=== PATIENT | male | born 1940 | race Caucasian/White ===

== ENCOUNTER 2019-09-16 05:43 | Outpatient (RCR) | payer MEDICARE, OTHER, SELFPAY | END 2019-09-19 00:01 | LOC: ONCRAD 05:43 | PROVIDERS: Family Provider Nurse Practitioner Family; Visit Provider Nurse Practitioner | DX: Z51.0 Encounter for antineoplastic radiation therapy (principal); Z51.11 Encounter for antineoplastic chemotherapy; C34.11 Malignant neoplasm of upper lobe, right bronchus or lung; C77.1 Secondary and unspecified malignant neoplasm of intrathoracic lymph nodes; C79.89 Secondary malignant neoplasm of other specified sites; J44.9 Chronic obstructive pulmonary disease, unspecified; E11.9 Type 2 diabetes mellitus without complications; E78.5 Hyperlipidemia, unspecified; N40.0 Benign prostatic hyperplasia without lower urinary tract symptoms; M25.472 Effusion, left ankle; M25.471 Effusion, right ankle; F10.21 Alcohol dependence, in remission; Z79.51 Long term (current) use of inhaled steroids; Z79.891 Long term (current) use of opiate analgesic; Z79.84 Long term (current) use of oral hypoglycemic drugs; Z87.891 Personal history of nicotine dependence; Z95.828 Presence of other vascular implants and grafts | CPT/HCPCS: 36415; 77386 ×4; 80053; 85025; 96367; 96413; 96417; 99214; J1100; J2469; J3490; J7030; J7050; J9045; J9267 ==

== ENCOUNTER 2019-10-15 05:34 | Outpatient (RCR) | payer MEDICARE, OTHER, SELFPAY | END 2019-10-20 00:01 | LOC: ONCMED 05:34 | PROVIDERS: Family Provider Nurse Practitioner Family; Visit Provider Internal Medicine Medical Oncology | DX: Z51.0 Encounter for antineoplastic radiation therapy (principal); C34.11 Malignant neoplasm of upper lobe, right bronchus or lung; C79.89 Secondary malignant neoplasm of other specified sites; D50.8 Other iron deficiency anemias; R19.00 Intra-abdominal and pelvic swelling, mass and lump, unspecified site; D70.1 Agranulocytosis secondary to cancer chemotherapy; T45.1X5A Adverse effect of antineoplastic and immunosuppressive drugs, initial encounter; J44.9 Chronic obstructive pulmonary disease, unspecified; E78.5 Hyperlipidemia, unspecified; K21.9 Gastro-esophageal reflux disease without esophagitis; N40.0 Benign prostatic hyperplasia without lower urinary tract symptoms; Z79.899 Other long term (current) drug therapy; Z79.52 Long term (current) use of systemic steroids ==

== ENCOUNTER 2019-10-24 15:55 | Inpatient (IN) | payer MEDICARE, OTHER, SELFPAY ==
[2019-10-24] VITALS (12 sets, daily range): BP systolic 105–128; BP diastolic 63–88; PULSE 90–110; RESP 14–22; TEMP 36.9; O2SAT 91–95; BMI 23.4
--- NOTE | 2019-10-24 16:18 | XRR_ITS ---
PROCEDURE INFORMATION: Exam: XR Chest, 1 View Exam date and time: 10/24/2019 4:56 PM Age: 79 years old Clinical indication: Shortness of breath; Additional info: Short of breath x 3 days TECHNIQUE: Imaging protocol: XR of the chest Views: 1 view. COMPARISON: CR Chest 1 [place] [id number] 09/08/2019 9:23 AM FINDINGS: Tubes, catheters and devices: There is a left subclavian PICC line with tip in the superior vena cava. Lungs: There is probable pulmonary fibrosis with superimposed mild interstitial edema, bronchitis or viral pneumonitis. Ill-defined poorly marginated airspace opacity in the right lung lateral to the hilum is unchanged in size and may reflect persistent pneumonitis or ill-defined unchanged mass. Right paratracheal mass/adenopathy is smaller with a decrease and adjacent volume loss or pneumonitis in the right upper lobe. The transverse measurement the mass today is 3.3 cm compared to 5.7 cm previously. No new airspace consolidation. Linear right basilar atelectasis versus scarring. Pleural space: Unremarkable. No pleural effusion. No pneumothorax. Heart/Mediastinum: Unremarkable. No cardiomegaly. Bones/joints: Unremarkable. XR/XR chest 1V portable [id number] IMPRESSION: 1. Ill-defined poorly marginated airspace opacity in the right lung lateral to the hilum is unchanged in size and may reflect persistent pneumonitis or ill-defined unchanged mass. 2. Improving right paratracheal mass. 3. There is probable pulmonary fibrosis with superimposed mild interstitial edema, bronchitis or viral pneumonitis.
--- NOTE | 2019-10-24 16:21 | ECG_ITS ---
Measurements Intervals [place] Rate: 91 P: 70 RI: 166 QRS: 59 QRSD: 96 T: 68 QT: 358 QTc: 442 SINUS RHYTHM Compared to ECG 09/07/2019 10:24:15 No significant changes Electronically Signed On 10-25-2019 11:15:55 [employer] by No Cardoza M.D. [email or web address]
--- NOTE | 2019-10-24 16:41 | PC.NURSE ---
RT, lab, and Frank Henderson at bedside.
[2019-10-24] MEDS: ipratropium-albuterol 3 mL Neb INHALATION (16:42)
--- NOTE | 2019-10-24 16:42 | W.ED.SOB ---
Documented by User: THIEN Lee 10/24/19 17:09 HPI - SOB/Dyspnea General: Chief Complaint: Shortness of Breath/Dyspnea Stated Complaint: Difficult Breathing, Patient comes in today for complaints of shortness of breath for last 2-3 days increasing. Patient has lung cancer and states recent treatment of bowel early last week. Patient reports some metastasis to the muscle in his abdomen. Patient appears chronically ill. Patient appears in no pain. Patient does report some mild pain in the right lower abdomen. She denies fever or chills. Time Seen by Provider: 10/24/19 17:02 Review of Systems General: Reports: 10 or more systems reviewed and unremarkable except in HPI and below Resp: Reports: shortness of breath and non-productive cough Musc: Reports: muscle weakness PFSH ED PFSH: Statuses (acute, chronic, etc) shown below reflect problem list status as previously entered and may not be historically accurate Medical History (Updated 10/24/19 @ 21:38 by Nahun Burroughs MD) BPH (benign prostatic hyperplasia) (Acute) COPD (chronic obstructive pulmonary disease) (Acute) Diabetes (Acute) Dyslipidemia (Acute) GERD (gastroesophageal reflux disease) (Acute) Normal colonoscopy (Acute) Right inguinal hernia (Acute) Squamous cell lung cancer (Acute) Surgical History (Updated 10/24/19 @ 21:35 by Nahun Burroughs MD) H/O inguinal hernia repair (Acute) History of appendectomy (Acute) Hx of tonsillectomy (Acute) S/P TURP (Acute) Family History (Updated 10/24/19 @ 21:41 by Nahun Burroughs MD) Mother Diabetes Brother Cancer Brother Cancer HODKINS LYMPHOMA Social History (Updated 10/24/19 @ 21:42 by Nahun Burroughs MD) Smoking and tobacco status: former smoker Alcohol intake: former Substance/Drug Use: never Marital status: Physical Exam Const: COMMON NORMALS: no apparent distress and oriented x3 GENERAL APPEARANCE: cooperative HENMT: COMMON NORMALS: normocephalic, external ears normal, EAC's normal, TM's normal bilaterally and external nose normal HEAD & SCALP: normal to inspection and normocephalic FACE & SINUS: normal facial exam NOSE: external nose normal GENERAL EAR: hearing grossly impaired EXTERNAL EAR: Yes external ears normal EXTERNAL AUDITORY CANAL: EAC's normal TYMPANIC MEMBRANE: TM's normal bilaterally MOUTH: oral and palatal mucosa normal THROAT: posterior oropharynx normal Eye: COMMON NORMALS: PERRL and EOMs intact bilaterally PUPIL: Yes PERRL Neck/C-Spine: COMMON NORMALS: full ROM and no lymphadenopathy Lymph: LYMPHATIC: no lymphedema noted Chest: COMMONS NORMALS: inspection of chest normal and palpation of chest normal Resp: COMMON NORMALS: normal respiratory effort AUSCULTATION: diminished lung sounds Cardio: COMMON NORMALS: regular rate and regular rhythm RATE: regular rate RHYTHM: regular rhythm GI: COMMON NORMALS: normal to inspection, nondistended, normoactive bowel sounds and non-tender : COMMON NORMALS: Yes no CVA tenderness BLADDER/KIDNEY EXAM: Yes no CVA tenderness Back/Pelvis: COMMON NORMALS: no CVA tenderness and thoracic and lumbar spine normal to inspection Extremity: COMMON NORMALS: normal to inspection GENERAL: No edema Neuro: COMMON NORMALS: oriented x3, moves all extremities and no focal motor deficits Psych: COMMON NORMALS: mental status grossly normal and cooperative Skin: COMMON NORMALS: no rashes or lesions noted GENERAL SKIN EXAM: no rashes or lesions noted Course ED course: Discussed patient with Dr. Ley who agreed to accept the patient. Awaiting labs and imaging. Vital Signs: Vital signs: Vital Signs Temperature 98.8 F 10/25/19 04:00 Pulse Rate 98 10/25/19 04:00 Respiratory Rate 18 10/25/19 04:00 Blood Pressure 126/74 10/25/19 04:00 Pulse Oximetry 92 10/25/19 04:00 MDM - SOB/Dyspnea Lab Data: Labs: Lab Results 10/24/19 10/24/19 10/24/19 Range/Units 16:36 16:38 16:38 WBC 5.1 (4.0-10.0) 10^3/ uL RBC 4.14 (4.1-5.3) 10^6/u L Hgb 11.1 L (11.7-16.6) g/dL Hct 34.6 L (42.0-52.0) % MCV 83.6 (80-94) fL MCH 26.8 L (28.0-34.0) pg MCHC 32.1 (30.0-36.0) g/dL RDW 21.2 H (12.1-15.1) % Plt Count 377 (130-400) 10^3/c mm MPV 10.5 H (7.4-10.4) fL Neut % (Auto) 73.4 % Lymph % (Auto) 8.7 % [place] % (Auto) 11.0 % Eos % (Auto) 4.3 % Baso % (Auto) 1.0 % Neut # (Auto) 3.7 (1.8-7.7) 10^3/u L Lymph # (Auto) 0.4 L (0.8-4.8) 10^3/u L [place] # (Auto) 0.6 (0.2-0.9) 10^3/u L Eos # (Auto) 0.2 (0.0-0.8) 10^3/u L Baso # (Auto) 0.1 (0.0-0.1) 10^3/u L Nucleated RBC % (a uto) 0 % Nucleated RBCs # 0.0 /100WBC PT 13.50 H (10.5-13.3) SECO NDS INR 1.00 (0.8-1.2) D-Dimer 1.96 H (0-0.59) ug/mIFE U Specimen Type Sample Site ABG pH (7.35-7.45) ABG pCO2 (35-45) mmHg ABG pO2 (80.0-100.0) mmH g ABG HCO3 (22-26) mmol/L ABG Base Excess (-2.0-2.0) mmol/ L Carlos Test Hematocrit (42-52) % Hgb O2 Saturation (95-100) % O2 Liters/Min % FiO2 % Guest Services Assistant ID Sodium (136-145) mmol/L Potassium (3.5-5.1) mmol/L Chloride (98-107) mmol/L Carbon Dioxide (22-29) mmol/L Anion Gap (5-19) BUN (8-23) mg/dL Creatinine (0.7-1.2) mg/dL Glucose (74-106) mg/dL Calcium (8.8-10.2) mg/Dl Magnesium (1.7-2.3) mg/dL Total Bilirubin (0.15-1.2) mg/dL AST (0-40) U/L ALT (0-41) U/L Alkaline Phosphata se (40-130) IU/L Troponin T Baselin e (0-15) ng/mL Troponin T 120 Min [place] (0-15) ng/mL Delta Troponin T (0-10) ABS# NT-Pro-B Natriuret Pep (0-450) pg/mL Total Protein (6.6-8.7) g/dL Albumin (3.5-5.2) g/dL Globulin (1.3-4.6) g/dL Influenza Type A A g Negative (Negative) POC Influenza B Ag Negative (Negative) 10/24/19 10/24/19 10/24/19 Range/Units 16:45 17:44 17:44 WBC (4.0-10.0) 10^3/ uL RBC (4.1-5.3) 10^6/u L Hgb (11.7-16.6) g/dL Hct (42.0-52.0) % MCV (80-94) fL MCH (28.0-34.0) pg MCHC (30.0-36.0) g/dL RDW (12.1-15.1) % Plt Count (130-400) 10^3/c mm MPV (7.4-10.4) fL Neut % (Auto) % Lymph % (Auto) % [place] % (Auto) % Eos % (Auto) % Baso % (Auto) % Neut # (Auto) (1.8-7.7) 10^3/u L Lymph # (Auto) (0.8-4.8) 10^3/u L [place] # (Auto) (0.2-0.9) 10^3/u L Eos # (Auto) (0.0-0.8) 10^3/u L Baso # (Auto) (0.0-0.1) 10^3/u L Nucleated RBC % (a uto) % Nucleated RBCs # /100WBC PT (10.5-13.3) SECO NDS INR (0.8-1.2) D-Dimer (0-0.59) ug/mIFE U Specimen Type Arterial Sample Site Radial, right ABG pH 7.53 H (7.35-7.45) ABG pCO2 34.1 L (35-45) mmHg ABG pO2 53.0 L (80.0-100.0) mmH g ABG HCO3 28.3 H (22-26) mmol/L ABG Base Excess 5.6 H (-2.0-2.0) mmol/ L Carlos Test Pos Hematocrit 37.6 L (42-52) % Hgb O2 Saturation 88.2 L (95-100) % O2 Liters/Min 2.0 % FiO2 28.0 % Guest Services Assistant ID amh Sodium 133 L (136-145) mmol/L Potassium 4.0 (3.5-5.1) mmol/L Chloride 95 L (98-107) mmol/L Carbon Dioxide 25 (22-29) mmol/L Anion Gap 17.0 (5-19) BUN 21 (8-23) mg/dL Creatinine 1.1 (0.7-1.2) mg/dL Glucose 140 H (74-106) mg/dL Calcium 10.4 H (8.8-10.2) mg/Dl Magnesium 1.7 (1.7-2.3) mg/dL Total Bilirubin 0.3 (0.15-1.2) mg/dL AST 29 (0-40) U/L ALT 17 (0-41) U/L Alkaline Phosphata se 193 H (40-130) IU/L Troponin T Baselin e 26 H (0-15) ng/mL Troponin T 120 Min [place] (0-15) ng/mL Delta Troponin T (0-10) ABS# NT-Pro-B Natriuret Pep 370 (0-450) pg/mL Total Protein 5.8 L (6.6-8.7) g/dL Albumin 3.3 L (3.5-5.2) g/dL Globulin 2.5 (1.3-4.6) g/dL Influenza Type A A g (Negative) POC Influenza B Ag (Negative) 10/24/19 Range/Units 19:53 WBC (4.0-10.0) 10^3/ uL RBC (4.1-5.3) 10^6/u L Hgb (11.7-16.6) g/dL Hct (42.0-52.0) % MCV (80-94) fL MCH (28.0-34.0) pg MCHC (30.0-36.0) g/dL RDW (12.1-15.1) % Plt Count (130-400) 10^3/c mm MPV (7.4-10.4) fL Neut % (Auto) % Lymph % (Auto) % [place] % (Auto) % Eos % (Auto) % Baso % (Auto) % Neut # (Auto) (1.8-7.7) 10^3/u L Lymph # (Auto) (0.8-4.8) 10^3/u L [place] # (Auto) (0.2-0.9) 10^3/u L Eos # (Auto) (0.0-0.8) 10^3/u L Baso # (Auto) (0.0-0.1) 10^3/u L Nucleated RBC % (a uto) % Nucleated RBCs # /100WBC PT (10.5-13.3) SECO NDS INR (0.8-1.2) D-Dimer (0-0.59) ug/mIFE U Specimen Type Sample Site ABG pH (7.35-7.45) ABG pCO2 (35-45) mmHg ABG pO2 (80.0-100.0) mmH g ABG HCO3 (22-26) mmol/L ABG Base Excess (-2.0-2.0) mmol/ L Carlos Test Hematocrit (42-52) % Hgb O2 Saturation (95-100) % O2 Liters/Min % FiO2 % Guest Services Assistant ID Sodium (136-145) mmol/L Potassium (3.5-5.1) mmol/L Chloride (98-107) mmol/L Carbon Dioxide (22-29) mmol/L Anion Gap (5-19) BUN (8-23) mg/dL Creatinine (0.7-1.2) mg/dL Glucose (74-106) mg/dL Calcium (8.8-10.2) mg/Dl Magnesium (1.7-2.3) mg/dL Total Bilirubin (0.15-1.2) mg/dL AST (0-40) U/L ALT (0-41) U/L Alkaline Phosphata se (40-130) IU/L Troponin T Baselin e (0-15) ng/mL Troponin T 120 Min [place] 24.79 H (0-15) ng/mL Delta Troponin T -1.21 L (0-10) ABS# NT-Pro-B Natriuret Pep (0-450) pg/mL Total Protein (6.6-8.7) g/dL Albumin (3.5-5.2) g/dL Globulin (1.3-4.6) g/dL Influenza Type A A g (Negative) POC Influenza B Ag (Negative) Discharge Plan Discharge Patient Disposition: Home, Self-Care Condition: Stable Discharge Date/Time: 10/25/19 01:13 Sign Out Sign Out Data: Patient Sign Out occurred on 10/24/19 at 17:16. Patient's care was discussed, and care was transferred from Kodi Henderson to Jennifer Adam. Sign Out Comment: Patient came in today for increase shortness of breath, Feels better since Oxygen placed by nursing staff. States has lung cancer. Patient denies fever. Awaiting labs and imaging Last updated by Kodi Henderson FNP at 10/24/19 17:05 Coding Level of Care Code ED Superintendent [employer] for Chg Fwd Exam Problem Focused Documented by User: Elia Munguia DO 10/25/19 05:03 HPI - SOB/Dyspnea General: Chief Complaint: Shortness of Breath/Dyspnea Stated Complaint: Difficult Breathing, Patient comes in today for complaints of shortness of breath for last 2-3 days increasing. Patient has lung cancer and states recent treatment of bowel early last week. Patient reports some metastasis to the muscle in his abdomen. Patient appears chronically ill. Patient appears in no pain. Patient does report some mild pain in the right lower abdomen. She denies fever or chills. Time Seen by Provider: 10/24/19 17:02 [facility] ED PFSH: Statuses (acute, chronic, etc) shown below reflect problem list status as previously entered and may not be historically accurate Medical History (Updated 10/24/19 @ 21:38 by Nahun Burroughs MD) BPH (benign prostatic hyperplasia) (Acute) COPD (chronic obstructive pulmonary disease) (Acute) Diabetes (Acute) Dyslipidemia (Acute) GERD (gastroesophageal reflux disease) (Acute) Normal colonoscopy (Acute) Right inguinal hernia (Acute) Squamous cell lung cancer (Acute) Surgical History (Updated 10/24/19 @ 21:35 by Nahun Burroughs MD) H/O inguinal hernia repair (Acute) History of appendectomy (Acute) Hx of tonsillectomy (Acute) S/P TURP (Acute) Family History (Updated 10/24/19 @ 21:41 by Nahun Burroughs MD) Mother Diabetes Brother Cancer Brother Cancer HODKINS LYMPHOMA Social History (Updated 10/24/19 @ 21:42 by Nahun Burroughs MD) Smoking and tobacco status: former smoker Alcohol intake: former Substance/Drug Use: never Marital status: Course Consultations: Consultation #1: Manjeet Time: 21:27 Vital Signs: Vital signs: Vital Signs Temperature 98.8 F 10/25/19 04:00 Pulse Rate 98 10/25/19 04:00 Respiratory Rate 18 10/25/19 04:00 Blood Pressure 126/74 10/25/19 04:00 Pulse Oximetry 92 10/25/19 04:00 MDM - SOB/Dyspnea MDM Narrative: Medical decision making narrative: 79-year-old gentleman with lung cancer. He presents with shortness of breath. His d-dimer was elevated. CTA reveals a small pulmonary embolus in the right lower lobe. Not likely to cause him his hypoxia, for which she is now oxygen dependent. He does have some groundglass opacities on CTA as well, likely pneumonitis from radiation although infection would not entirely be ruled out. As he is hypoxic, he will be admitted. Lab Data: Labs: Lab Results 10/24/19 10/24/19 10/24/19 Range/Units 16:36 16:38 16:38 WBC 5.1 (4.0-10.0) 10^3/ uL RBC 4.14 (4.1-5.3) 10^6/u L Hgb 11.1 L (11.7-16.6) g/dL Hct 34.6 L (42.0-52.0) % MCV 83.6 (80-94) fL MCH 26.8 L (28.0-34.0) pg MCHC 32.1 (30.0-36.0) g/dL RDW 21.2 H (12.1-15.1) % Plt Count 377 (130-400) 10^3/c mm MPV 10.5 H (7.4-10.4) fL Neut % (Auto) 73.4 % Lymph % (Auto) 8.7 % [place] % (Auto) 11.0 % Eos % (Auto) 4.3 % Baso % (Auto) 1.0 % Neut # (Auto) 3.7 (1.8-7.7) 10^3/u L Lymph # (Auto) 0.4 L (0.8-4.8) 10^3/u L [place] # (Auto) 0.6 (0.2-0.9) 10^3/u L Eos # (Auto) 0.2 (0.0-0.8) 10^3/u L Baso # (Auto) 0.1 (0.0-0.1) 10^3/u L Nucleated RBC % (a uto) 0 % Nucleated RBCs # 0.0 /100WBC PT 13.50 H (10.5-13.3) SECO NDS INR 1.00 (0.8-1.2) D-Dimer 1.96 H (0-0.59) ug/mIFE U Specimen Type Sample Site ABG pH (7.35-7.45) ABG pCO2 (35-45) mmHg ABG pO2 (80.0-100.0) mmH g ABG HCO3 (22-26) mmol/L ABG Base Excess (-2.0-2.0) mmol/ L Carlos Test Hematocrit (42-52) % Hgb O2 Saturation (95-100) % O2 Liters/Min % FiO2 % Guest Services Assistant ID Sodium (136-145) mmol/L Potassium (3.5-5.1) mmol/L Chloride (98-107) mmol/L Carbon Dioxide (22-29) mmol/L Anion Gap (5-19) BUN (8-23) mg/dL Creatinine (0.7-1.2) mg/dL Glucose (74-106) mg/dL Calcium (8.8-10.2) mg/Dl Magnesium (1.7-2.3) mg/dL Total Bilirubin (0.15-1.2) mg/dL AST (0-40) U/L ALT (0-41) U/L Alkaline Phosphata se (40-130) IU/L Troponin T Baselin e (0-15) ng/mL Troponin T 120 Min [place] (0-15) ng/mL Delta Troponin T (0-10) ABS# NT-Pro-B Natriuret Pep (0-450) pg/mL Total Protein (6.6-8.7) g/dL Albumin (3.5-5.2) g/dL Globulin (1.3-4.6) g/dL Influenza Type A A g Negative (Negative) POC Influenza B Ag Negative (Negative) 10/24/19 10/24/19 10/24/19 Range/Units 16:45 17:44 17:44 WBC (4.0-10.0) 10^3/ uL RBC (4.1-5.3) 10^6/u L Hgb (11.7-16.6) g/dL Hct (42.0-52.0) % MCV (80-94) fL MCH (28.0-34.0) pg MCHC (30.0-36.0) g/dL RDW (12.1-15.1) % Plt Count (130-400) 10^3/c mm MPV (7.4-10.4) fL Neut % (Auto) % Lymph % (Auto) % [place] % (Auto) % Eos % (Auto) % Baso % (Auto) % Neut # (Auto) (1.8-7.7) 10^3/u L Lymph # (Auto) (0.8-4.8) 10^3/u L [place] # (Auto) (0.2-0.9) 10^3/u L Eos # (Auto) (0.0-0.8) 10^3/u L Baso # (Auto) (0.0-0.1) 10^3/u L Nucleated RBC % (a uto) % Nucleated RBCs # /100WBC PT (10.5-13.3) SECO NDS INR (0.8-1.2) D-Dimer (0-0.59) ug/mIFE U Specimen Type Arterial Sample Site Radial, right ABG pH 7.53 H (7.35-7.45) ABG pCO2 34.1 L (35-45) mmHg ABG pO2 53.0 L (80.0-100.0) mmH g ABG HCO3 28.3 H (22-26) mmol/L ABG Base Excess 5.6 H (-2.0-2.0) mmol/ L Carlos Test Pos Hematocrit 37.6 L (42-52) % Hgb O2 Saturation 88.2 L (95-100) % O2 Liters/Min 2.0 % FiO2 28.0 % Guest Services Assistant ID amh Sodium 133 L (136-145) mmol/L Potassium 4.0 (3.5-5.1) mmol/L Chloride 95 L (98-107) mmol/L Carbon Dioxide 25 (22-29) mmol/L Anion Gap 17.0 (5-19) BUN 21 (8-23) mg/dL Creatinine 1.1 (0.7-1.2) mg/dL Glucose 140 H (74-106) mg/dL Calcium 10.4 H (8.8-10.2) mg/Dl Magnesium 1.7 (1.7-2.3) mg/dL Total Bilirubin 0.3 (0.15-1.2) mg/dL AST 29 (0-40) U/L ALT 17 (0-41) U/L Alkaline Phosphata se 193 H (40-130) IU/L Troponin T Baselin e 26 H (0-15) ng/mL Troponin T 120 Min [place] (0-15) ng/mL Delta Troponin T (0-10) ABS# NT-Pro-B Natriuret Pep 370 (0-450) pg/mL Total Protein 5.8 L (6.6-8.7) g/dL Albumin 3.3 L (3.5-5.2) g/dL Globulin 2.5 (1.3-4.6) g/dL Influenza Type A A g (Negative) POC Influenza B Ag (Negative) 10/24/19 Range/Units 19:53 WBC (4.0-10.0) 10^3/ uL RBC (4.1-5.3) 10^6/u L Hgb (11.7-16.6) g/dL Hct (42.0-52.0) % MCV (80-94) fL MCH (28.0-34.0) pg MCHC (30.0-36.0) g/dL RDW (12.1-15.1) % Plt Count (130-400) 10^3/c mm MPV (7.4-10.4) fL Neut % (Auto) % Lymph % (Auto) % [place] % (Auto) % Eos % (Auto) % Baso % (Auto) % Neut # (Auto) (1.8-7.7) 10^3/u L Lymph # (Auto) (0.8-4.8) 10^3/u L [place] # (Auto) (0.2-0.9) 10^3/u L Eos # (Auto) (0.0-0.8) 10^3/u L Baso # (Auto) (0.0-0.1) 10^3/u L Nucleated RBC % (a uto) % Nucleated RBCs # /100WBC PT (10.5-13.3) SECO NDS INR (0.8-1.2) D-Dimer (0-0.59) ug/mIFE U Specimen Type Sample Site ABG pH (7.35-7.45) ABG pCO2 (35-45) mmHg ABG pO2 (80.0-100.0) mmH g ABG HCO3 (22-26) mmol/L ABG Base Excess (-2.0-2.0) mmol/ L Carlos Test Hematocrit (42-52) % Hgb O2 Saturation (95-100) % O2 Liters/Min % FiO2 % Guest Services Assistant ID Sodium (136-145) mmol/L Potassium (3.5-5.1) mmol/L Chloride (98-107) mmol/L Carbon Dioxide (22-29) mmol/L Anion Gap (5-19) BUN (8-23) mg/dL Creatinine (0.7-1.2) mg/dL Glucose (74-106) mg/dL Calcium (8.8-10.2) mg/Dl Magnesium (1.7-2.3) mg/dL Total Bilirubin (0.15-1.2) mg/dL AST (0-40) U/L ALT (0-41) U/L Alkaline Phosphata se (40-130) IU/L Troponin T Baselin e (0-15) ng/mL Troponin T 120 Min [place] 24.79 H (0-15) ng/mL Delta Troponin T -1.21 L (0-10) ABS# NT-Pro-B Natriuret Pep (0-450) pg/mL Total Protein (6.6-8.7) g/dL Albumin (3.5-5.2) g/dL Globulin (1.3-4.6) g/dL Influenza Type A A g (Negative) POC Influenza B Ag (Negative) Discharge Plan Discharge Patient Disposition: Home, Self-Care Condition: Stable Discharge Date/Time: 10/25/19 01:13 Sign Out Sign Out Data: Patient Sign Out occurred on 10/24/19 at 17:16. Patient's care was discussed, and care was transferred from Kodi Henderson to Jennifer Adam. Sign Out Comment: Patient came in today for increase shortness of breath, Feels better since Oxygen placed by nursing staff. States has lung cancer. Patient denies fever. Awaiting labs and imaging Last updated by Kodi Henderson FNP at 10/24/19 17:05 Coding Level of Care Code ED Superintendent [employer] Terminal for [place] Fwd Exam Problem Focused
[2019-10-24 16:56] LABS: ABG PCO2 34.1 mmHg (35-45); ABG PH Result 7.53 (7.35-7.45); Arterial Blood Gas Hematocrit 37.6 % (42-52); Base Excess ABG 5.6 mmol/L (-2.0-2.0); Blood Gas Allen Test Pos; Blood Gas Operator Identificat amh; Blood Gas Sample Site Radial, right; Blood Gas Sample Type Arterial; HCO3 ABG 28.3 mmol/L (22-26); HGB O2 Sat 88.2 % (95-100)
[2019-10-24 16:58] LABS: Basophils # 0.1 10^3/uL (0.0-0.1); Eosinophils # 0.2 10^3/uL (0.0-0.8); Eosinophils % 4.3 %; Hematocrit 34.6 % (42.0-52.0); Hemoglobin 11.1 g/dL (11.7-16.6); Lymphocytes # 0.4 10^3/uL (0.8-4.8); Lymphocytes % 8.7 %; Mean Corpuscular HGB Conc 32.1 g/dL (30.0-36.0); Mean Corpuscular Hemoglobin 26.8 pg (28.0-34.0); Mean Corpuscular Volume 83.6 fL (80-94); Mean Platelet Volume 10.5 fL (7.4-10.4); Monocytes # 0.6 10^3/uL (0.2-0.9); Neutrophils # 3.7 10^3/uL (1.8-7.7); Neutrophils % 73.4 %; Nucleated Red Blood Cells % 0 %; Platelet Count 377 10^3/cmm (130-400); Red Blood Count 4.14 10^6/uL (4.1-5.3); Red Cell Distribution Width 21.2 % (12.1-15.1); White Blood Count 5.1 10^3/uL (4.0-10.0)
--- NOTE | 2019-10-24 17:37 | PC.NURSE ---
Lab at bedside
[2019-10-24 17:50] LABS: D Dimer 1.96 ug/mIFEU (0-0.59)
--- NOTE | 2019-10-24 18:02 | CTR_ITS ---
PROCEDURE INFORMATION: Exam: CT Angiography Chest With Contrast Exam date and time: 10/24/2019 6:21 PM Age: 79 years old Clinical indication: Shortness of breath; Chest pain; Type not specified; Patient HX: HX of lung cancer TECHNIQUE: Imaging protocol: Computed tomographic angiography of the chest with intravenous contrast. 3D rendering: MIP and/or 3D reconstructed images were created by the technologist. Total DLP: 1421.23 mGy-cm Radiation optimization: All CT scans at this facility use at least one of these dose optimization techniques: automated exposure control; mA and/or kV adjustment per patient size (includes targeted exams where dose is matched to clinical indication); or iterative reconstruction. Contrast material: OMNIPAQUE 350; Contrast volume: 95 ml; Contrast route: IV; COMPARISON: CT chest w con* [id number] 07/06/2019 2:36 PM FINDINGS: Pulmonary arteries: There is 1 tiny filling defect in the right lower lobe pulmonary artery concerning for small embolus series 2, image 357. No additional pulmonary emboli are identified. There is no central or saddle embolus. No right heart strain. See Pulmonary Arteries Finding. Aorta: Unremarkable. No aortic aneurysm. No aortic dissection. Lungs: The mass in the medial right upper lobe today measures 4.4 x 3.7 cm compared to the prior exam where it measured 4.7 x 5.6 cm. On today's exam, there is central cavitation within the mass. New hazy ground-glass and airspace opacities are noted in the lungs concerning for CHF/early airspace edema versus pneumonitis. Right upper lobe mass is smaller and now there is central cavitation. Pleural space: There is a small right pleural effusion. Heart: See Pulmonary Arteries Finding. Mediastinum: Right hilar mass or soft tissue density anterior to the right bronchus image 201 today measures 2.6 cm in thickness where previously it measured only about 0.4 cm. Kidneys and ureters: A few small renal cortical hypodensities are too small to characterize but statistically consistent with cysts. Lymph nodes: There is no axillary adenopathy. Mediastinal adenopathy is again identified with the right paratracheal lymph node image 166 measuring 3.3 by 4.1 cm. Previously this measured 2.6 by 5.3 cm. Subcarinal adenopathy is larger with an AP measurement of 2.2 cm today compared to 1.8 cm previously. No left hilar adenopathy. Bones/joints: Unchanged sclerotic lesion in T7. No new or enlarging bony lesion.. No acute fracture. Soft tissues: Unremarkable. IMPRESSION: 1. There is a small right pleural effusion. There is severe emphysematous changes. 2. New hazy ground-glass and airspace opacities are noted in the lungs concerning for CHF/early airspace edema versus pneumonitis. 3. There is 1 tiny filling defect in the right lower lobe pulmonary artery concerning for small embolus series 2, image 357. 4. There is no central or saddle embolus. No right heart strain. 5. Enlarging right hilar mass/adenopathy and enlarging subcarinal adenopathy. Enlarging adenopathy adjacent to the nina. Some of the adenopathy in the upper mediastinum is slightly smaller. PROCEDURE INFORMATION: Exam: CT Abdomen And Pelvis With Contrast Exam date and time: 10/24/2019 6:21 PM Age: 79 years old Clinical indication: Shortness of breath; Chest pain; Type not specified; Patient HX: HX of lung cancer TECHNIQUE: Imaging protocol: Computed tomography of the abdomen and pelvis with intravenous contrast. COMPARISON: CT chest w con* [id number] 07/06/2019 2:36 PM FINDINGS: Liver: There is mild fatty infiltration..No mass. Gallbladder and bile ducts: Normal. No calcified stones. No ductal dilation. Pancreas: Normal. No ductal dilation. Spleen: Normal. No splenomegaly. Adrenals: Slightly larger left adrenal nodule now measuring 1.8 cm compared to 1.5 cm previously. Kidneys and ureters: Renal cortical cysts are unchanged. The left kidney is slightly smaller than the right. No hydronephrosis. Stomach and bowel: Unremarkable. No obstruction. No mucosal thickening. Appendix: No evidence of appendicitis. Intraperitoneal space: Unremarkable. No free air. No significant fluid collection. Vasculature: Moderate atherosclerosis.No abdominal aortic aneurysm. Lymph nodes: Unremarkable.No enlarged lymph nodes. Bladder: There is nonspecific bladder wall thickening. This may be related to incomplete distention. Reproductive: Unremarkable as visualized. Bones/joints: Diffuse osteopenia. No acute fracture. Soft tissues: Unremarkable. Postoperative clips in the right groin are noted. CT/CT angio chest w abd pel w con IMPRESSION: 1. No acute findings. 2. Left adrenal nodule is larger. Radiation Dose CTDIVOL = (mGy): DLP = 1421.23 (mGy-cm)
--- NOTE | 2019-10-24 18:21 | ECG_ITS ---
Measurements Intervals [place] Rate: 103 P: 70 ID: [id number] QRS: 55 QRSD: 91 T: 67 QT: 348 QTc: 456 SINUS TACHYCARDIA ABNORMAL RHYTHM ECG Compared to ECG 09/07/2019 10:24:15 Sinus rhythm no longer present Electronically Signed On 10-25-2019 11:24:03 AUCTION CLERK by No Cardoza M.D. [id number] f
[2019-10-24 18:35] LABS: Troponin(5th) Baseline 26 ng/mL (0-15)
[2019-10-24 19:02] LABS: Alanine Aminotransferase 17 U/L (0-41); Albumin Level 3.3 g/dL (3.5-5.2); Alkaline Phosphatase 193 IU/L (40-130); Aspartate Amino Transferase 29 U/L (0-40); Blood Urea Nitrogen 21 mg/dL (8-23); Calcium 10.4 mg/Dl (8.8-10.2); Carbon Dioxide 25 mmol/L (22-29); Chloride 95 mmol/L (98-107); Globulin 2.5 g/dL (1.3-4.6); Glucose 140 mg/dL (74-106); Magnesium 1.7 mg/dL (1.7-2.3); NT Pro B Type Natriuretic Pept 370 pg/mL (0-450); Sodium 133 mmol/L (136-145); Total Bilirubin 0.3 mg/dL (0.15-1.2); Total Protein 5.8 g/dL (6.6-8.7)
--- NOTE | 2019-10-24 19:02 | PC.NURSE ---
Report given to RADHA Caldwell
[2019-10-24 19:12] LABS: Influenza A by IFA Negative (Negative); Influenza B by IFA Negative (Negative)
[2019-10-24 20:27] LABS: Troponin 5 2HR 24.79 ng/mL (0-15)
[2019-10-24 20:34] LABS: Troponin 5 2HR Delta -1.21 ABS# (0-10)
--- NOTE | 2019-10-24 20:51 | PC.NURSE ---
Pt is A&Ox4, NAD,
--- NOTE | 2019-10-24 21:32 | P.HP_ITS ---
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 Patient is stating that he has finished his chemo & rad iotherapy sessions, he has quit smoking long time ago, he was at his usual state of health i.e independent for daily activities, not on oxygen, only uses albuterol on as-needed basis, until he started having shortness of breath on exertion 3 days ago, he was only able to take 20-30 steps before getting shortness of breath. He did not notice any fever, chills, but he is endorsing dry cough, he has not been exposed to sick contacts recently, he is not suffering from sinusitis, myalgias, dysuria, diarrhea, constipation, no recent traveling however he is endorsing right-sided chest discomfort which gets worse on taking deep breaths. Diagnostics in ER showed tachypnea, hypoxia, ABG showed relative hypoxia on 2 L oxygen, high d-dimer, CTA was done which showed small right-sided pulmonary embo lism, he was given 1 dose of full dose Lovenox in ED when I saw him he was asymptomatic, was on 2 L oxygen was able to communicate without any distress CT scan is also showing groundglass opacities He has been afebrile, no leukocytosis, Review of Systems Const: Reports: change in weight and fatigue; Denies: fever, chills or body aches Eyes: Denies: change in vision ENMT: Denies: throat pain Card: Reports: chest pain Resp: Reports: shortness of breath and non-productive cough GI: Denies: abdominal pain : Denies: flank pain or urinary frequency Musc: Denies: neck pain or back pain Neuro: Denies: headache Psych: Denies: anxiety, depression or mood swings Endo: Denies: excessive urination Sid/Lymph: Denies: easy bruising All/Imm: Denies: throat swelling Medications/Allergies Home Medications Medication Instructions Recorded Confirmed Last Taken Type dexamethasone See Rx Instructions .ROUTE .COMPLEX 10/24/19 10/24/19 10/22/19 Hi story diclofenac sodium [Voltaren] 2 - 4 g TOPICAL PRN 10/24/19 10/24/19 Unknown History furosemide [Lasix] 20 - 40 mg PO DAILY PRN 10/24/19 10/24/19 10/24/19 History ibuprofen 400 mg PO Q4H PRN 10/24/19 10/24/19 10/24/19 History lorazepam 1 mg PO TID PRN 10/24/19 10/24/19 Unknown History metformin 500 mg PO BID 10/24/19 10/24/19 10/24/19 History multivitamin [Multiple Vitamins] 1 tab PO DAILY 10/24/19 10/24/19 10/24/19 History prochlorperazine maleate 10 mg PO Q4H PRN 10/24/19 10/24/19 Unknown History Allergies Allergy/AdvReac Type Severity Reaction Status Date / Time No Known Allergies Allergy Verified 10/24/19 16:09 PFSH Acute PFSH: Statuses (acute, chronic, etc) shown below reflect problem list status as previously entered and may not be historically accurate Medical History (Updated 10/24/19 @ 21:38 by Nahun Burroughs MD) BPH (benign prostatic hyperplasia) (Acute) COPD (chronic obstructive pulmonary disease) (Acute) Diabetes (Acute) Dyslipidemia (Acute) GERD (gastroesophageal reflux disease) (Acute) Normal colonoscopy (Acute) Right inguinal hernia (Acute) Squamous cell lung cancer (Acute) Surgical History (Updated 10/24/19 @ 21:35 by Nahun Burroughs MD) H/O inguinal hernia repair (Acute) History of appendectomy (Acute) Hx of tonsillectomy (Acute) S/P TURP (Acute) Family History (Updated 10/24/19 @ 21:41 by Nahun Burroughs MD) Mother Diabetes Brother Cancer Brother Cancer HODKINS LYMPHOMA Social History (Updated 10/24/19 @ 21:42 by Nahun Burroughs MD) Smoking and tobacco status: former smoker Alcohol intake: former Substance/Drug Use: never Marital status: Vitals/I&O/Wt Last Vital Signs Temp 98.4 F 10/24/19 15:59 Pulse 104 H 10/24/19 18:40 Resp 20 H 10/24/19 18:40 BP 105/63 10/24/19 18:40 Pulse Ox 93 10/24/19 18:40 Weight last 48 hrs Weight 69.853 kg Physical Exam Narrative: EXAM NARRATIVE: Patient was lying comfortable in his bed on 2 L nasal cannula saturating well Lung auscultation is showing bilateral good breath sounds without adventitious sounds or wheezing No active respiratory distress S1-S2 no murmur appreciated Abdomen soft nontender nondistended Extremities no swelling no signs of ischemia gangrene or ulcer Neurologically nonfocal exam no focal deficit Skin is unremarkable no bruises lesion or bleeding Psych: Appropriate affect and able to communicate without any distress EOMI, PERRLA, no JVD A&P Assessment and plan (1) Pulmonary embolism: Status: Acute Code(s): I26.99 - Other pulmonary embolism without acute cor pulmonale (2) Squamous cell lung cancer: Status: Acute Code(s): C34.90 - Malignant neoplasm of unspecified part of unspecified bronchus or lung (3) Pneumonitis: Status: Acute Code(s): J18.9 - Pneumonia, unspecified organism Additional A&P Information Additional A&P Information: Symptomatic PE Currently requiring 2 L oxygen, at home he is not on oxygen, We will check with evidence of right heart strain with echo, will check venous Doppler, EKG, Currently normal hemodynamics no active distress We will anticoagulate him with Lovenox because of underlying cancer COPD secondary to smoking He has quit smoking long time ago, not on oxygen at home, he only uses albuterol nebulizer on as-needed basis at home Will need PT evaluation with home O2 evaluation as well Bilateral groundglass opacities which I believe is secondary to radiation pneumonitis No fever, no white count, Highly doubt sepsis, no interval development of pneumonia I would not give him antibiotics for now Will use steroids for anti-inflammatory effect Antitussive Patient with poorly differentiated squamous cell carcinoma involving the upper lobe of the right lung. By clinical evaluation his disease is stage IV (T3, N2, M1c), with PET/CT evidence of 2 sites of intramuscular metastatic implants. He underwent diagnostic bronchoscopy and mediastinoscopy on 07/29/2019. Mediport placement 09/06/2019, it was unfortunately unsuccessful and was given treatment via PICC line in left upper arm He has finished his chemo and radiotherapy sessions No active neutropenia DVT prophylaxis: Not needed because he is getting Lovenox GI prophylaxis: Protonix Patient is full code Attestations Medical Necessity Statement*: Anticipating stay to cross more than 2 midnights because of acute symptomatic PE Time Spent in Patient Care: (>than 50% of time spent in counselling and/or direct pt care on unit) . 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
--- NOTE | 2019-10-24 22:21 | ECG_ITS ---
Measurements Intervals [place] Rate: 89 P: 74 [place]: 166 QRS: 72 QRSD: 86 T: 71 QT: 359 QTc: 439 SINUS RHYTHM Compared to ECG 09/07/2019 10:24:15 No significant changes Electronically Signed On 10-25-2019 11:24:00 CLASSIFIED AD TAKER by No Cardoza M.D. [id number]
[2019-10-25] VITALS (10 sets, daily range): BP systolic 102–154; BP diastolic 63–83; PULSE 85–107; RESP 15–22; TEMP 36.4–37.2; O2SAT 90–93
[2019-10-25 01:05] LABS: Troponin 5 6HR 26.85 ng/L (0-15)
--- NOTE | 2019-10-25 01:27 | ECG_ITS ---
Measurements Intervals [place] Rate: 101 P: 70 [place]: 160 QRS: 59 QRSD: 88 T: 56 QT: 333 QTc: 433 SINUS TACHYCARDIA POSSIBLE LEFT ATRIAL ENLARGEMENT [-0.1mV P WAVE IN V1/V2] ABNORMAL RHYTHM ECG Compared to ECG 09/07/2019 10:24:15 Sinus rhythm no longer present Electronically Signed On 10-25-2019 11:21:14 ACOUSTICAL TILE CARPENTERS SUPERVISOR by No Cardoza M.D. [id number]
[2019-10-25] MEDS: ibuprofen 600 mg Tablet PO ×2 (04:47→11:15)
[2019-10-25] MEDS: enoxaparin 80 mg/0.8 mL Syringe 70 MG SUBCUT ×2 (04:49→15:43)
[2019-10-25 05:49] LABS: Basophils % 0.7 %; Eosinophils # 0.1 10^3/uL (0.0-0.8); Eosinophils % 1.9 %; Hematocrit 36.9 % (42.0-52.0); Hemoglobin 11.9 g/dL (11.7-16.6); Lymphocytes # 0.5 10^3/uL (0.8-4.8); Lymphocytes % 9.1 %; Mean Corpuscular HGB Conc 32.2 g/dL (30.0-36.0); Mean Corpuscular Hemoglobin 27.2 pg (28.0-34.0); Mean Corpuscular Volume 84.2 fL (80-94); Mean Platelet Volume 10.1 fL (7.4-10.4); Monocytes # 0.6 10^3/uL (0.2-0.9); Monocytes % 10.6 %; Neutrophils # 4.1 10^3/uL (1.8-7.7); Nucleated Red Blood Cells % 0 %; Platelet Count 418 10^3/cmm (130-400); Red Blood Count 4.38 10^6/uL (4.1-5.3); Red Cell Distribution Width 21.2 % (12.1-15.1); White Blood Count 5.4 10^3/uL (4.0-10.0)
[2019-10-25 06:03] LABS: Alanine Aminotransferase 15 U/L (0-41); Albumin Level 3.1 g/dL (3.5-5.2); Alkaline Phosphatase 185 IU/L (40-130); Anion Gap 15.1 (5-19); Aspartate Amino Transferase 24 U/L (0-40); Blood Urea Nitrogen 17 mg/dL (8-23); Calcium 10.3 mg/Dl (8.8-10.2); Carbon Dioxide 26 mmol/L (22-29); Chloride 95 mmol/L (98-107); Globulin 3.3 g/dL (1.3-4.6); Glucose 138 mg/dL (74-106); Potassium 4.1 mmol/L (3.5-5.1); Sodium 132 mmol/L (136-145); Total Bilirubin 0.4 mg/dL (0.15-1.2); Total Protein 6.4 g/dL (6.6-8.7)
[2019-10-25 06:55] LABS: Glucose Point of Care 139 mg/dL (70-110)
[2019-10-25] MEDS: sennosides-docusate Tablet 1 TAB PO ×2 (08:56→17:43)
[2019-10-25] MEDS: predniSONE 20 mg Tablet 40 MG PO (08:57)
[2019-10-25 12:21] LABS: Glucose Point of Care 187 mg/dL (70-110)
[2019-10-25] MEDS: pantoprazole DR 40 mg Tablet PO (13:30)
--- NOTE | 2019-10-25 14:59 | PM.PN ---
Subjective Subjective: Interval history: He is feeling better. Reports intermittent cough. Denies hemoptysis. Sometimes having chest discomfort in the right lower part. Doing well on nasal cannula. Says at home is not normally on oxygen. Vitals/I&O/Wt Last Vital Signs Temp 97.8 F 10/25/19 12:00 Pulse 98 10/25/19 12:00 Resp 22 H 10/25/19 12:00 BP 125/79 10/25/19 12:00 Pulse Ox 90 10/25/19 12:00 10/24/19 10/25/19 10/25/19 22:59 06:59 14:59 Intake Total 360 / 360 Balance 360 / 360 Weight last 48 hrs Weight 69.853 kg Physical Exam Const: COMMON NORMALS: no apparent distress and oriented x3 OTHER: Nasal cannula in place. His is at bedside. HENMT: COMMON NORMALS: oropharynx normal Neck/C-Spine: COMMON NORMALS: no JVD Resp: COMMON NORMALS: normal respiratory effort and clear to auscultation bilaterally AUSCULTATION: clear to auscultation bilaterally Cardio: COMMON NORMALS: no JVD, regular rhythm, S1 normal heart sound, S2 normal heart sound and no murmurs RHYTHM: regular rhythm HEART SOUNDS: S1 normal and S2 normal GI: COMMON NORMALS: normal to inspection, nondistended, normoactive bowel sounds, soft to palpation and non-tender PALPATION: Yes soft Extremity: COMMON NORMALS: no joint enlargement and no pedal edema Neuro: COMMON NORMALS: oriented x3 and moves all extremities Skin: COMMON NORMALS: no rashes or lesions noted GENERAL SKIN EXAM: no rashes or lesions noted A&P Assessment and plan (1) Pulmonary embolism: He has been hemodynamically stable. Oxygenation is stable on nasal cannula. Intermittent mild right lower chest discomfort. Denies hemoptysis. Echocardiogram pending. Continue Lovenox. Will discuss with oncology whether switch to DOAC is feasible given underlying malignancy. Will likely need oxygen on discharge. Status: Acute Code(s): I26.99 - Other pulmonary embolism without acute cor pulmonale (2) Squamous cell lung cancer: Continue follow-up with oncology. Status: Acute Code(s): C34.90 - Malignant neoplasm of unspecified part of unspecified bronchus or lung (3) Pneumonitis: With consideration of possible radiation pneumonitis. Was started on prednisone. Symptomatic treatment. Status: Acute Code(s): J18.9 - Pneumonia, unspecified organism Additional A&P Information Additional A&P Information: Right leg pain, possible bursitis: Reports ibuprofen helps with his symptoms, and he has been taking it at home for some time. Does not have any pain on right hip internal or external rotation. Reports pain laterally, some pain on palpation. Discussed with him for now continue bupropion, but discussed this is not a good long-term medication. Urged him to discuss again with his primary care provider in office. For now we will add Protonix as he is also on prednisone and anticoagulation. Attestations Medical Necessity Statement*: Continue admission for management of hypoxia, PE, pneumonitis. 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
[2019-10-25 16:54] LABS: Glucose Point of Care 186 mg/dL (70-110)
[2019-10-25 21:48] LABS: Glucose Point of Care 238 mg/dL (70-110)
[2019-10-26] VITALS (11 sets, daily range): BP systolic 93–156; BP diastolic 60–87; PULSE 69–99; RESP 16–24; TEMP 36.3–36.7; O2SAT 90–95
[2019-10-26] MEDS: ibuprofen 600 mg Tablet PO ×2 (03:29→10:26)
[2019-10-26] MEDS: enoxaparin 80 mg/0.8 mL Syringe 70 MG SUBCUT (06:10)
[2019-10-26 06:12] LABS: Basophils % 0.2 %; Eosinophils # 0.1 10^3/uL (0.0-0.8); Eosinophils % 1.1 %; Hematocrit 36.9 % (42.0-52.0); Hemoglobin 11.7 g/dL (11.7-16.6); Lymphocytes # 0.6 10^3/uL (0.8-4.8); Lymphocytes % 9.7 %; Mean Corpuscular HGB Conc 31.7 g/dL (30.0-36.0); Mean Corpuscular Hemoglobin 27.1 pg (28.0-34.0); Mean Corpuscular Volume 85.4 fL (80-94); Monocytes # 0.5 10^3/uL (0.2-0.9); Monocytes % 9.4 %; Neutrophils # 4.4 10^3/uL (1.8-7.7); Neutrophils % 78.2 %; Nucleated Red Blood Cells % 0 %; Platelet Count 396 10^3/cmm (130-400); Red Blood Count 4.32 10^6/uL (4.1-5.3); Red Cell Distribution Width 20.6 % (12.1-15.1); White Blood Count 5.7 10^3/uL (4.0-10.0)
[2019-10-26 06:39] LABS: Alanine Aminotransferase 15 U/L (0-41); Alkaline Phosphatase 167 IU/L (40-130); Anion Gap 14.8 (5-19); Aspartate Amino Transferase 23 U/L (0-40); Blood Urea Nitrogen 20 mg/dL (8-23); Calcium 10.2 mg/Dl (8.8-10.2); Carbon Dioxide 27 mmol/L (22-29); Chloride 97 mmol/L (98-107); Globulin 3.4 g/dL (1.3-4.6); Glucose 131 mg/dL (74-106); Potassium 3.8 mmol/L (3.5-5.1); Sodium 135 mmol/L (136-145); Total Bilirubin 0.3 mg/dL (0.15-1.2); Total Protein 6.4 g/dL (6.6-8.7)
[2019-10-26] MEDS: ipratropium-albuterol 3 mL Neb INHALATION (07:21)
[2019-10-26 07:48] LABS: Glucose Point of Care 114 mg/dL (70-110)
[2019-10-26] MEDS: pantoprazole DR 40 mg Tablet PO (08:36)
[2019-10-26] MEDS: predniSONE 20 mg Tablet 40 MG PO (08:37)
[2019-10-26 11:45] LABS: Glucose Point of Care 260 mg/dL (70-110)
--- NOTE | 2019-10-26 12:24 | PC.RESP ---
Pt given information on Pulmonary Rehab.
--- NOTE | 2019-10-26 15:01 | P.PN_ITS ---
Subjective Subjective: Interval history: Chart reviewed, labs noted. Patient seen and examined, very pleasant, currently on 3 L nasal cannula, states that he gets quite short of breath even just ambulating to the bathroom so has been keeping his oxygen on at all times. Switched to oral Eliquis and discontinued Lovenox. Medications: Reviewed: Yes Medication Review Details: Active Medications Generic Name Dose Route Start Last Admin Trade Name Freq PRN Reason Stop Dose Admin Acetaminophen 650 mg 10/25/19 01:27 Tylenol PO Q6H PRN Mild/Mod Pain Or Temp >/= 101 Hydrocodone Bitart /Acetaminophen 1 tab 10/25/19 01:27 [place] 5-325 Mg PO Q4H PRN MODERATE PAIN Albuterol/Ipratrop ium 3 ml 10/25/19 01:27 10/26/19 07:21 Duoneb INHALATION 3 ml Q6H PRN Administration SHORTNESS OF RASHEL TH Apixaban 10 mg 10/26/19 18:00 Eliquis PO BID KADIE Dextrose 25 ml 10/25/19 01:27 D50w IVP ONCE PRN hypoglycemia prot ocol Protocol Dextrose 50 ml 10/25/19 01:27 D50w IVP PRN PRN hypoglycemia prot ocol Protocol Glucagon 1 mg 10/25/19 01:27 Glucagen IM ONCE PRN Adult Acute Hypog lycemia Prot. Protocol Guaifenesin 200 mg 10/25/19 01:27 Robitussin Oral Liq PO Q4H PRN COUGH AND CONGEST ION Dextrose 500 mls @ 100 mls /hr 10/25/19 01:27 D5w IV ONCE PRN Adult Acute Hypog lycemia Prot Protocol Ibuprofen 600 mg 10/25/19 04:17 10/26/19 10:26 Motrin PO 600 mg Q6H PRN Administration MODERATE PAIN Insulin Aspart 0 unit 10/25/19 08:00 10/26/19 11:52 Novolog SUBCUT 6 unit TIDWM KADIE Administration Protocol Lorazepam 1 mg 10/25/19 01:27 Ativan PO TID PRN Nausea Magnesium Hydroxid e 30 ml 10/25/19 01:27 Milk Of Magnesia PO DAILY PRN CONSTIPA Metformin HCl 500 mg 10/25/19 09:00 10/26/19 08:38 Glucophage PO Not Given BID KADIE Morphine Sulfate 2 mg 01/05/20 01:27 Morphine IVP Q4H PRN SEVERE PAIN Ondansetron HCl 4 mg 10/25/19 01:27 Zofran IVP Q6H PRN NAUSEA AND VOMITI NG Ondansetron HCl 4 mg 10/25/19 01:27 Zofran IVP Q8H PRN vomiting, or N/V if npo Pantoprazole Sodiu m 40 mg 10/25/19 13:20 10/26/19 08:36 Protonix PO 40 mg DAILY KADIE Administration Prednisone 40 mg 10/25/19 09:00 10/26/19 08:37 Prednisone PO 40 mg DAILY KADIE Administration Prochlorperazine 10 mg 10/25/19 01:27 Compazine PO Q4H PRN Nausea Senna/Docusate Sod ium 1 tab 10/25/19 09:00 10/26/19 08:38 Senna-S PO Not Given BID KADIE No Known Allergies Allergy (Verified 10/24/19 16:09) Vitals/I&O/Wt Last Vital Signs Temp 97.9 F 10/26/19 11:47 Pulse 99 10/26/19 11:47 Resp 18 10/26/19 11:47 BP 93/60 10/26/19 11:47 Pulse Ox 93 10/26/19 11:47 10/26/19 10/26/19 10/26/19 06:59 14:59 22:59 Intake Total 600 / 600 Balance 600 / 600 Weight last 48 hrs Weight 69.853 kg Physical Exam Const: COMMON NORMALS: no apparent distress, oriented x3 and alert GENERAL APPEARANCE: cooperative and comfortable NUTRITIONAL APPEARANCE: thin OTHER: Appears appropriate for age HENMT: COMMON NORMALS: normocephalic, head/scalp atraumatic and hearing grossly normal bilaterally HEAD & SCALP: normocephalic and atraumatic TEETH & GINGIVA: Yes edentulous Eye: COMMON NORMALS: PERRL, EOMs intact bilaterally and no scleral icterus PUPIL: Yes PERRL Neck/C-Spine: GENERAL: Yes normal visual inspection Resp: COMMON NORMALS: normal respiratory effort, no retractions and no use of accessory muscles EFFORT & INSPECTION: Yes able to speak in complete sentences AUSCULTATION: diminished lung sounds bilateral OTHER: on 3 L NC Cardio: COMMON NORMALS: regular rate, regular rhythm, S1 normal heart sound, S2 normal heart sound, no murmurs and peripheral pulses 2+ throughout RATE: regular rate RHYTHM: regular rhythm HEART SOUNDS: S1 normal and S2 normal PERIPHERAL PULSES: pulses 2+ throughout GI: COMMON NORMALS: normal to inspection, nondistended, normoactive bowel sounds, soft to palpation and non-tender PALPATION: Yes soft Extremity: COMMON NORMALS: normal to inspection RIGHT LOWER EXTREMITY: Yes hip joint (Noted tenderness to palpation around the right hip joint) Neuro: COMMON NORMALS: oriented x3, moves all extremities and no focal motor deficits SENSORIUM/ORIENTATION: Yes alert Psych: COMMON NORMALS: mental status grossly normal and cooperative Skin: OTHER: Noted bruising around right AC likely secondary to infiltration from prior peripheral IV access A&P Assessment and plan (1) Pulmonary embolism: -Small right lower lobe PE per imaging; done after noted d-dimer elevation. No evidence of heart strain, central or saddle emboli -Vital signs stable -Not oxygen dependent at baseline requiring some oxygenation here; home oxygen evaluation prior to discharge if unable to wean -Has been on therapeutic anticoagulation with Lovenox; will switch to therapeutic Eliquis -H&H stable -Continue to monitor vital signs -Echo pending Status: Acute Qualifiers: Pulmonary embolism type: single subsegmental (without acute cor pulmonale) Qualified Code(s): I26.93 - Single subsegmental pulmonary embolism without acute cor pulmonale Code(s): I26.99 - Other pulmonary embolism without acute cor pulmonale (2) Pneumonitis: -Recently completed radiation therapy so this is potential cause -continue steroids Status: Acute Code(s): J18.9 - Pneumonia, unspecified organism (3) Squamous cell lung cancer: -Has known squamous cell R lung cancer, stage IV -Has recently completed radiation therapy for lung; pending radiation therapy for abdominal mass (10/28/2019 for simulation) -Has received 6 cycles of chemotherapy with carboplatin/paclitaxel -Follows up with Dr. Thornton -Noted evidence of enlarging right hilar mass and a left adrenal nodule on imaging Status: Acute Qualifiers: Laterality: right Qualified Code(s): C34.91 - Malignant neoplasm of unspecified part of right bronchus or lung Code(s): C34.90 - Malignant neoplasm of unspecified part of unspecified bronchus or lung Additional A&P Information Additional A&P Information: -NIDDM type II; last A1c (05/2019): 6.4- at goal -Right lower extremity pain likely secondary to bursitis. Has been taking ibuprofen for pain control which has been discontinued secondary to potential for nephrotoxicity -Hyperlipidemia -BPH -GERD -Non-oxygen dependent COPD; evidence of severe emphysematous changes on chest x- ray -History of iron deficiency anemia, unable to tolerate oral iron so has been receiving IV iron, so far has received 2 doses, both given in September 2019. Hemoglobin here has been stable -diabetic diet as tolerated -accuchecks -GI ppx with PPI -DVT ppx not needed as on therapeutic AC -Dispo: home -Code status: FULL code Attestations Medical Necessity Statement*: Patient requires continued hospitalization for continued anticoagulation, will be switched to oral Eliquis today Coding Level of Care Code Acute Windows Systems Administrator for Chg Fwd Diagnoses Pulmonary embolism I26.93 Pulmonary embolism type: single subsegmental (without acute cor pulmonale) Pneumonitis J18.9 Squamous cell lung cancer C34.91 Laterality: right
[2019-10-26 17:03] LABS: Glucose Point of Care 185 mg/dL (70-110)
[2019-10-26] MEDS: apixaban 5 mg Tablet 10 MG PO (18:08)
[2019-10-26] MEDS: sennosides-docusate Tablet 1 TAB PO (18:08)
[2019-10-26 21:21] LABS: Glucose Point of Care 231 mg/dL (70-110)
[2019-10-27] VITALS (7 sets, daily range): BP systolic 146–170; BP diastolic 80–92; PULSE 60–102; RESP 18–20; TEMP 36.8–37; O2SAT 80–95
[2019-10-27] MEDS: ibuprofen 600 mg Tablet PO (01:25)
[2019-10-27 05:34] LABS: Basophils % 0.3 %; Eosinophils % 0.6 %; Hematocrit 34.4 % (42.0-52.0); Hemoglobin 11.2 g/dL (11.7-16.6); Lymphocytes # 0.5 10^3/uL (0.8-4.8); Lymphocytes % 7.9 %; Mean Corpuscular HGB Conc 32.6 g/dL (30.0-36.0); Mean Corpuscular Hemoglobin 26.6 pg (28.0-34.0); Mean Corpuscular Volume 81.7 fL (80-94); Mean Platelet Volume 10.5 fL (7.4-10.4); Monocytes # 0.6 10^3/uL (0.2-0.9); Monocytes % 10.1 %; Neutrophils % 79.8 %; Nucleated Red Blood Cells % 0 %; Platelet Count 481 10^3/cmm (130-400); Red Blood Count 4.21 10^6/uL (4.1-5.3); Red Cell Distribution Width 20.4 % (12.1-15.1); White Blood Count 6.2 10^3/uL (4.0-10.0)
[2019-10-27 05:52] LABS: Alanine Aminotransferase 14 U/L (0-41); Alkaline Phosphatase 140 IU/L (40-130); Anion Gap 14.9 (5-19); Aspartate Amino Transferase 22 U/L (0-40); Blood Urea Nitrogen 20 mg/dL (8-23); Calcium 10.3 mg/Dl (8.8-10.2); Carbon Dioxide 26 mmol/L (22-29); Chloride 99 mmol/L (98-107); Globulin 2.7 g/dL (1.3-4.6); Glucose 119 mg/dL (74-106); Potassium 3.9 mmol/L (3.5-5.1); Sodium 136 mmol/L (136-145); Total Bilirubin 0.3 mg/dL (0.15-1.2); Total Protein 5.7 g/dL (6.6-8.7)
--- NOTE | 2019-10-27 07:00 | USCV_ITS ---
Reginald Vizcaino Age: 79 Gender: M : 1940 Exam Date: 10/27/2019 09:06 Ordering Phys: Rohini Portillo MD Technologist: Ryder Castellanos [place] [facility] [place] PE BP: 125 / 72 HR: 92 Rhythm: Sinus Technical Quality: Adequate MEASUREMENTS (Male / Female) Normal Values 2D ECHO LV Diastolic Diameter PLAX 2.5 cm 4.2 - 5.9 / 3.9 - 5.3 cm LV Systolic Diameter PLAX 1.8 cm IVS Diastolic Thickness 0.7 cm 0.6 - 1.0 / 0.6 - 0.9 cm IVS Systolic Thickness 0.9 cm LVPW Diastolic Thickness 0.9 cm 0.6 - 1.0 / 0.6 - 0.9 cm LVPW Systolic Thickness 1.0 cm LVOT Diameter 2.1 cm LV Ejection Fraction 2D Teich 52.8 % LV Ejection Fraction MOD 2C 56.6 % LV Ejection Fraction 2C AL 58.3 % LA Diameter 2.9 cm LA Width 3.2 cm LA Height 3.1 cm RA Width 2.6 cm RA Height 3.0 cm Aorta at Sinotubular Diameter 2.4 cm M-MODE LV Diastolic Diameter MM 3.9 cm 4.2 - 5.9 / 3.9 - 5.3 cm LV Systolic Diameter MM 2.4 cm LV Ejection Fraction MM Teich 68.8 % IVS Diastolic Thickness MM 0.9 cm 0.6 - 1.0 / 0.6 - 0.9 cm IVS Systolic Thickness MM 1.4 cm LVPW Diastolic Thickness MM 1.0 cm 0.6 - 1.0 / 0.6 - 0.9 cm LVPW Systolic Thickness MM 1.7 cm RV Diastolic Diameter MM 1.6 cm Aortic Annulus Diameter 3.0 cm LA Ao Ratio MM 1.0 MV E Point Septal Separation 0.6 cm DOPPLER AV Peak Velocity 139.0 cm/s LVOT Peak Velocity 88.0 cm/s AV Area Cont Eq vti 2.6 cm squared AV Area Cont Eq pk 2.2 cm squared MV Area PHT 5.0 cm squared Mitral E to A Ratio 0.5 MV E' Velocity 8.0 cm/s Mitral E to MV E' Ratio 5.8 Mitral E to LV E' Lateral Ratio 5.9 Mitral E to LV E' Septal Ratio 5.7 TR Peak Velocity 140.0 cm/s TR Peak Gradient 7.8 mmHg TV Peak E Velocity 63.0 cm/s Right Atrial Pressure 3.0 mmHg Pulmonary Artery Systolic Pressu 10.8 mmHg PV Peak Velocity 119.0 cm/s FINDINGS Left Ventricle Normal left ventricular cavity size. Mild left ventricular hypertrophy. Normal left ventricular systolic function. No regional wall motion abnormalities. Grade I/IV diastolic dysfunction (abnormal relaxation filling pattern), normal to mildly elevated filling pressures. Left ventricular ejection fraction is estimated at 60 %. Right Ventricle Normal right ventricular size and systolic function. Normal right ventricular systolic pressure. Right Atrium The right atrium is normal in size. Left Atrium The left atrium is normal in size. Mitral Valve Structurally normal mitral valve. No mitral valve regurgitation. No mitral valve stenosis. Aortic Valve Aortic valve not well visualized. Structurally normal trileaflet aortic valve. No aortic valve regurgitation. No aortic valve stenosis. Tricuspid Valve Structurally normal tricuspid valve. Trace tricuspid valve regurgitation. Pulmonic Valve Pulmonic valve not well visualized. Pericardium Normal pericardium without effusion. Aorta Normal ascending aorta dimension. CONCLUSIONS Normal left ventricular cavity size. Mild left ventricular hypertrophy. Normal left ventricular systolic function. No regional wall motion abnormalities. Grade I/IV diastolic dysfunction (abnormal relaxation filling pattern), normal to mildly elevated filling pressures. Left ventricular ejection fraction is estimated at 60 %. There are no prior echocardiogram studies to compare. Dr. Anish Denise MD (Electronically Signed) Final Date: 27 October 2019 09:47 S
[2019-10-27 07:15] LABS: Glucose Point of Care 101 mg/dL (70-110)
--- NOTE | 2019-10-27 08:13 | P.DS_ITS ---
Discharge Providers Date of Admission: 10/24/19 21:35 Date of Discharge: 10/27/19 Attending Provider at Admission: Nahun Burroughs MD Attending Provider at Discharge: Rohini Portillo MD Primary Care Provider: Sheri Mcbride Diagnoses at Discharge Discharge Diagnosis (1) Pulmonary embolism: Status: Acute Problem details: -Small right lower lobe PE per imaging; done after noted d-dimer elevation. No evidence of heart strain, central or saddle emboli -Vital signs stable -Not oxygen dependent at baseline requiring some oxygenation here; home oxygen evaluation prior to discharge if unable to wean -Has been on therapeutic anticoagulation with Lovenox; will switch to therapeutic Eliquis -H&H stable -Continue to monitor vital signs -Echo pending Qualifiers: Pulmonary embolism type: single subsegmental (without acute cor pulmonale) Qualified Code(s): I26.93 - Single subsegmental pulmonary embolism without acute cor pulmonale (2) Pneumonitis: Status: Acute Problem details: -Recently completed radiation therapy so this is potential cause -continue steroids (3) Squamous cell lung cancer: Status: Acute Problem details: -Has known squamous cell R lung cancer, stage IV -Has recently completed radiation therapy for lung; pending radiation therapy for abdominal mass (10/28/2019 for simulation) -Has received 6 cycles of chemotherapy with carboplatin/paclitaxel -Follows up with Dr. Thornton -Noted evidence of enlarging right hilar mass and a left adrenal nodule on imaging Qualifiers: Laterality: right Qualified Code(s): C34.91 - Malignant neoplasm of unspecified part of right bronchus or lung Other Information Additional DC diagnoses/information: -NIDDM type II; last A1c (05/2019): 6.4- at goal -Right lower extremity pain likely secondary to bursitis. Has been taking ibuprofen for pain control which has been discontinued secondary to potential for nephrotoxicity -Hyperlipidemia -BPH -GERD -Non-oxygen dependent COPD; evidence of severe emphysematous changes on chest x- ray -History of iron deficiency anemia, unable to tolerate oral iron so has been receiving IV iron, so far has received 2 doses, both given in September 2019. Hemoglobin here has been stable Reason for Visit Reason for Visit: Reason For Visit: Difficult Breathing Hospital Course Hospital Course: Patient was admitted to the medical surgical floor and started on therapeutic anticoagulation with Lovenox given finding of right lower lobe PE on imaging. He has consistently required supplemental oxygen particularly with exertion; which is different from his baseline so he had a home oxygen evaluation done prior to discharge. He has been switched to Eliquis to continue therapeutic anticoagulation. He was treated with steroids due to finding of pneumonitis on imaging. He is to continue his dexamethasone prescribed by his oncologist. He will need to continue to follow-up with radiation oncology as well as his primary care provider. He was noted to have some tenderness and decreased range of motion at the right hip joint area which could be secondary to bursitis versus arthritis so focus has been on pain control. Should symptoms persist or worsen he may require additional imaging for further evaluation. He is to seek medical attention immediately if any of his symptoms particularly worsening shortness of breath, fall, chest pain occur. Physical Exam Const: COMMON NORMALS: no apparent distress, oriented x3 and alert GENERAL APPEARANCE: frail appearing NUTRITIONAL APPEARANCE: thin HENMT: COMMON NORMALS: normocephalic and head/scalp atraumatic HEAD & SCALP: normocephalic and atraumatic GENERAL EAR: hearing grossly impaired Laterality: bilateral TEETH & GINGIVA: Yes edentulous Eye: COMMON NORMALS: PERRL, EOMs intact bilaterally, conjunctivae normal and no scleral icterus CONJUNCTIVA: Yes conjunctivae normal PUPIL: Yes PERRL Neck/C-Spine: GENERAL: Yes normal visual inspection Resp: COMMON NORMALS: no use of accessory muscles EFFORT & INSPECTION: Yes able to speak in complete sentences, Yes symmetric chest movement and No respiratory distress AUSCULTATION: diminished lung sounds bilateral Cardio: COMMON NORMALS: regular rate, regular rhythm, S1 normal heart sound, S2 normal heart sound, no murmurs and peripheral pulses 2+ throughout RATE: regular rate RHYTHM: regular rhythm HEART SOUNDS: S1 normal and S2 normal PERIPHERAL PULSES: pulses 2+ throughout GI: COMMON NORMALS: normal to inspection, nondistended, normoactive bowel sounds, soft to palpation and non-tender PALPATION: Yes soft Extremity: COMMON NORMALS: normal to inspection and full ROM NARRATIVE EXTREMITY EXAM: PICC line in LUE RIGHT LOWER EXTREMITY: Yes hip joint Right hip: Yes ROM (Decreased ROM of R hip secondary to pain, tenderness to palpation at joint ) Neuro: COMMON NORMALS: oriented x3, moves all extremities and no focal motor deficits SENSORIUM/ORIENTATION: Yes alert Psych: COMMON NORMALS: mental status grossly normal, thought process normal, cooperative, affect normal and speech normal SPEECH: Yes normal speech THOUGHT PROCESS: normal thought process Skin: COMMON NORMALS: no rashes or lesions noted GENERAL SKIN EXAM: no rashes or lesions noted Discharge Data Data Completed and Pending: Completed Studies During Hospitalization Category Date Time Status CT angio chest w abd pel w con Urge nt Cat Scan 10/24/19 18:02 Completed XR chest 1V jimmie ble [id number] Urgent Exams 10/24/19 16:18 Completed Pending at discharge Category Date Time Status Arterial Blood Ga s W/Coox Routine Lab 10/24/19 16:45 Results CV echo complete* [id number] Routine Ultrasound 10/27/19 07:00 Ordered Labs from last 24 hours 10/27/19 10/27/19 10/27/19 06:39 04:59 04:59 WBC 6.2 RBC 4.21 Hgb 11.2 L Hct 34.4 L MCV 81.7 MCH 26.6 L MCHC 32.6 RDW 20.4 H Plt Count 481 H MPV 10.5 H Neut % (Auto) 79.8 Lymph % (Auto) 7.9 [place] % (Auto) 10.1 Eos % (Auto) 0.6 Baso % (Auto) 0.3 Neut # (Auto) 5.0 Lymph # (Auto) 0.5 L [place] # (Auto) 0.6 Eos # (Auto) 0.0 Baso # (Auto) 0.0 Nucleated RBC % (a uto) 0 Nucleated RBCs # 0.0 Sodium 136 Potassium 3.9 Chloride 99 Carbon Dioxide 26 Anion Gap 14.9 BUN 20 Creatinine 0.9 Glucose 119 H POC Glucose 101 Calcium 10.3 H Total Bilirubin 0.3 AST 22 ALT 14 Alkaline Phosphata se 140 H Total Protein 5.7 L Albumin 3.0 L Globulin 2.7 10/26/19 10/26/19 10/26/19 21:12 16:51 11:03 WBC RBC Hgb Hct MCV MCH MCHC RDW Plt Count MPV Neut % (Auto) Lymph % (Auto) [place] % (Auto) Eos % (Auto) Baso % (Auto) Neut # (Auto) Lymph # (Auto) [place] # (Auto) Eos # (Auto) Baso # (Auto) Nucleated RBC % (a uto) Nucleated RBCs # Sodium Potassium Chloride Carbon Dioxide Anion Gap BUN Creatinine Glucose POC Glucose 231 185 260 Calcium Total Bilirubin AST ALT Alkaline Phosphata se Total Protein Albumin Globulin Vitals: Last Vital Signs Temp 98.4 F 10/27/19 07:33 Pulse 85 10/27/19 07:33 Resp 20 H 10/27/19 07:33 BP 157/90 10/27/19 07:33 Pulse Ox 92 10/27/19 07:33 Discharge Plan Discharge Patient Disposition: Home, Self-Care Condition: Stable Prescriptions: New Eliquis 5 mg Tablet 10 mg PO BID Qty: 80 RF: 0 Continued metformin 500 mg Tablet 500 mg PO BID RF: 0 prochlorperazine maleate 10 mg Tablet 10 mg PO Q4H PRN (Reason: Nausea) RF: 0 dexamethasone 4 mg Tablet See Rx Instructions .ROUTE .COMPLEX RF: 0 furosemide [Lasix] 20 mg Tablet 20 - 40 mg PO DAILY PRN (Reason: EDEMA) RF: 0 lorazepam 1 mg Tablet 1 mg PO TID PRN (Reason: Nausea) RF: 0 Voltaren 1 % Gel 2 - 4 g TOPICAL PRN RF: 0 Multiple Vitamins Tablet 1 tab PO DAILY RF: 0 ibuprofen 200 mg Tablet 400 mg PO Q4H PRN (Reason: Pain) RF: 0 Discharge Orders: Discharge Order (Routine); Ordered 10/27/19 Ordered By: Rohini Portillo Referrals: Sheri Mcbride APN [Primary Care Provider] - 4-7 days Rohini Portillo MD [Hospitalist] - Discharge Diet: Diabetic Discharge Activity: Resume usual activity Discharge Attestations Time Spent in Discharge Care*: greater than 30 min Specific Discharge Activities: Specific discharge activities: educating patient and evaluating patient/reviewing data Quality Metrics Clinical Quality Measures During this hospital stay, did patient experience: VTE Contraindication to Overlap Therapy: Overlap treatment not indicated VTE Discharge Education: Education about anticoagulant therapy/Care Notes given, Medication side effects education and Follow-up arranged Deep Vein Thrombosis/Pulmonary Embolism Present on Admission: Yes Contraindication to Pharm VTE Prophylaxis: Medical co ntraindication (Patient was on therapeutic anticoagulation) Coding Level of Care Code Acute Public Health Representative for [facility] Fwd Diagnoses Pulmonary embolism I26.93 Pulmonary embolism type: single subsegmental (without acute cor pulmonale) Pneumonitis J18.9 Squamous cell lung cancer C34.91 Laterality: right
[2019-10-27] MEDS: predniSONE 20 mg Tablet 40 MG PO (08:28)
[2019-10-27] MEDS: sennosides-docusate Tablet 1 TAB PO (08:29)
[2019-10-27] MEDS: metformin 500 mg Tablet PO (08:29)
[2019-10-27] MEDS: pantoprazole DR 40 mg Tablet PO (08:29)
[2019-10-27] MEDS: apixaban 5 mg Tablet 10 MG PO (08:29)
--- NOTE | 2019-10-27 10:45 | PC.SOCIAL ---
IMM Page 2 of IMM explained to and signed by patient. Initialed, dated, and timed and placed in chart. Copy provided to patient.
[2019-10-27 11:37] LABS: Glucose Point of Care 192 mg/dL (70-110)
[2019-10-27 12:35] LABS: Carboxyhemoglobin 1.7 %THgb (0.4-20.1); Methemoglobin 0.6 % (0.4-1.5); Total Hemoglobin 12.3 g/dL (14-18)
[2019-10-28 08:37] LABS: Oxygen Device NC
== END 2019-10-27 13:42 | disposition home or self-care (01) | DRG 175 ==
LOC: ER 19:53 → MEDSURG 22:17
PROVIDERS: Emergency Medicine; Internal Medicine; Nurse Practitioner Family; Admitting Provider Internal Medicine; Emergency Provider Emergency Medicine; Family Provider Nurse Practitioner Family; PCP Nurse Practitioner Family; Visit Provider Family Medicine
DX: I26.99 Other pulmonary embolism without acute cor pulmonale (principal); J18.9 Pneumonia, unspecified organism; C34.90 Malignant neoplasm of unspecified part of unspecified bronchus or lung; J44.0 Chronic obstructive pulmonary disease with (acute) lower respiratory infection; E11.9 Type 2 diabetes mellitus without complications; E78.5 Hyperlipidemia, unspecified; N40.0 Benign prostatic hyperplasia without lower urinary tract symptoms; K21.9 Gastro-esophageal reflux disease without esophagitis; Z79.84 Long term (current) use of oral hypoglycemic drugs; Z87.891 Personal history of nicotine dependence
CPT/HCPCS: 36415; 36416; 36592; 36600; 71045; 71275; 74177; 80053; 82805; 82962; 83735; 83880; 84484; 85025; 85378; 85610; 87804; 93005; 93306; 94640; 96372; 97110; 97161; 99211; 99283; J1650; J1815; J7512; Q9967

== ENCOUNTER 2019-10-28 06:05 | Outpatient (RCR) | payer MEDICARE, OTHER, SELFPAY ==
--- NOTE | 2019-10-28 | CT_ITS ---
Radation Therapy Planning CT images; total exam DLP: 1501.93 mGy-cm MTDD
== END 2019-10-28 23:59 | disposition home or self-care (01) ==
LOC: ONCMED 06:05
PROVIDERS: Family Provider Nurse Practitioner Family; PCP Nurse Practitioner Family; Visit Provider Internal Medicine Medical Oncology
DX: C34.11 Malignant neoplasm of upper lobe, right bronchus or lung (principal)
CPT/HCPCS: 77263; 77290; 77295; 77300; 77334; 77370; 77470; 99211

== ENCOUNTER 2019-11-02 11:03 | Inpatient (IN) | payer MEDICARE, OTHER, SELFPAY ==
[2019-11-02] VITALS (21 sets, daily range): BP systolic 107–131; BP diastolic 60–82; PULSE 93–118; RESP 16–22; TEMP 36.6–36.9; O2SAT 82–94; BMI 21.9
--- NOTE | 2019-11-02 11:17 | ED_ITS ---
Entered by Natalee Moon, acting as scribe for Nataly Brady MD, [facility] [place] - SOB/Dyspnea General: Chief Complaint: Shortness of Breath/Dyspnea Stated Complaint: SOB Time Seen by Provider: 11/02/19 11:17 History of Present Illness: HPI Narrative: 79 yo m came to the er by ems for sob. onset was today. Pt states that he is on 02 at home. Pt states that he was up walking to the bathroom and when he checked his o2 is was down to 45%. Pt states that he has lung cancer, pt also states that last week when he came to the hospital and was diagnosed with a PE. He was admitted and started on eliquis. he was also discharged home on oxygen. Pt states that he has a dry cough and the sob gets worse with exertion. MD elicited complaint: shortness of breath and cough (dry) Pertinent past history: other (lung cancer) Onset (ago): day(s) Severity: moderate Exacerbating factors: exertion Relieving factors: oxygen Associated symptoms: Reports cough Treatment prior to arrival: oxygen Related Data: Home oxygen amount: 2 liters Review of Systems General: Reports: 10 or more systems reviewed and unremarkable except in HPI and below Card: Reports: shortness of breath on exertion; Denies: swelling of feet/ankles Resp: Reports: shortness of breath and non-productive cough PFSH ED PFSH: Statuses (acute, chronic, etc) shown below reflect problem list status as previously entered and may not be historically accurate Medical History (Updated 11/02/19 @ 18:28 by Nataly Brady MD, [facility] [place] BPH (benign prostatic hyperplasia) (Acute) COPD (chronic obstructive pulmonary disease) (Acute) Diabetes (Acute) Dyslipidemia (Acute) GERD (gastroesophageal reflux disease) (Acute) Normal colonoscopy (Acute) Right inguinal hernia (Acute) Squamous cell lung cancer (Acute) -Has known squamous cell R lung cancer, stage IV -Has recently completed radiation therapy for lung; pending radiation therapy for abdominal mass (10/28/2019 for simulation) -Has received 6 cycles of chemotherapy with carboplatin/paclitaxel -Follows up with Dr. Thornton -Noted evidence of enlarging right hilar mass and a left adrenal nodule on imaging Surgical History (Updated 10/24/19 @ 21:35 by Nahun Burroughs MD) H/O inguinal hernia repair (Acute) History of appendectomy (Acute) Hx of tonsillectomy (Acute) S/P TURP (Acute) Family History (Updated 10/24/19 @ 21:41 by Nahun Burroughs MD) Mother Diabetes Brother Cancer Brother Cancer HODKINS LYMPHOMA Social History (Updated 10/24/19 @ 21:42 by Nahun Burroughs MD) Smoking and tobacco status: former smoker Alcohol intake: former Marital status: Physical Exam Const: COMMON NORMALS: no apparent distress, average body habitus, oriented x3, no limitations, healthy appearing, alert and well nourished HENMT: COMMON NORMALS: normocephalic, head/scalp atraumatic, hearing grossly normal bilaterally, external ears normal, EAC's normal, TM's normal bilaterally, external nose normal, nasal mucous membranes and turbinates normal, moist oral mucous membranes, oropharynx normal, dentition normal and gingiva normal HEAD & SCALP: normocephalic and atraumatic NOSE: external nose normal and nasal mucous membranes and turbinates normal EXTERNAL EAR: Yes external ears normal EXTERNAL AUDITORY CANAL: EAC's normal TYMPANIC MEMBRANE: TM's normal bilaterally Eye: COMMON NORMALS: PERRL, EOMs intact bilaterally, conjunctivae normal, no scleral icterus and normal visual daniel by confrontation CONJUNCTIVA: Yes conjunctivae normal PUPIL: Yes PERRL DIRECT OPHTHALMOSCOPY: Yes no papilledema and Yes fundi normal bilaterally Neck/C-Spine: COMMON NORMALS: full ROM, supple, no meningeal signs, no JVD and no carotid bruits Chest: COMMONS NORMALS: inspection of chest normal and palpation of chest normal Resp: EFFORT & INSPECTION: Yes other (crackles) AUSCULTATION: rales bilateral Cardio: COMMON NORMALS: no JVD, regular rate, regular rhythm, S1 normal heart sound, S2 normal heart sound, no gallops, no clicks, no murmurs, no rub and peripheral pulses 2+ throughout RATE: regular rate RHYTHM: regular rhythm HEART SOUNDS: S1 normal and S2 normal PERIPHERAL PULSES: pulses 2+ throughout GI: COMMON NORMALS: normal to inspection, nondistended, normoactive bowel sounds, soft to palpation, non-tender, no hepatosplenomegaly, no masses and no bruits PALPATION: Yes soft and Yes no hepatosplenomegaly : COMMON NORMALS: Yes no CVA tenderness BLADDER/KIDNEY EXAM: Yes no CVA tenderness Back/Pelvis: COMMON NORMALS: no CVA tenderness Extremity: COMMON NORMALS: normal to inspection, full ROM, normal capillary refill, no joint enlargement, no clubbing, cyanosis or edema, no calf tenderness and no pedal edema Neuro: COMMON NORMALS: oriented x3 SENSORIUM/ORIENTATION: Yes alert MENINGEAL SIGNS: Yes no meningeal signs Skin: COMMON NORMALS: no rashes or lesions noted, no wounds, skin turgor normal, no jaundice, no petechiae and no mottling GENERAL SKIN EXAM: no rashes or lesions noted and turgor normal Course Consultations: Consultation #1: Admit patient under observation status. Time: 17:30 Consultation #2: Dr. Matthews, baseball club manager. Patient will need to be started on inhaled LABA/LAMA as well as inhaled steroids. We will put full recommendations in the notes. Time: 18:15 Vital Signs: Vital signs: Vital Signs Temperature 98.5 F 11/02/19 11:04 Pulse Rate 98 11/02/19 17:05 Respiratory Rate 16 11/02/19 17:05 Blood Pressure 112/60 11/02/19 17:05 Pulse Oximetry 91 11/02/19 17:05 MDM - SOB/Dyspnea MDM Narrative: Medical decision making narrative: 79-year-old gentleman who was recently diagnosed with a pulmonary embolism and discharged home on Eliquis and home oxygen. The patient has been having gradually worsening dyspnea on exertion with oxygen saturation in the 40s even with his oxygen turned up above what was recommended. He also has a history of emphysema, lung cancer status post radiation. He is hypoxia is probably multifactorial and he has been seen by the baseball club manager here in the emergency department. He will be admitted overnight for pulmonary toilet and further management. Lab Data: Labs: Lab Results 11/02/19 11/02/19 11/02/19 Range/Units 11:38 11:38 11:38 WBC 8.3 (4.0-10.0) 10^3/ uL RBC 4.89 (4.1-5.3) 10^6/u L Hgb 13.0 (11.7-16.6) g/dL Hct 41.2 L (42.0-52.0) % MCV 84.3 (80-94) fL MCH 26.6 L (28.0-34.0) pg MCHC 31.6 (30.0-36.0) g/dL RDW 19.8 H (12.1-15.1) % Plt Count 501 H (130-400) 10^3/c mm MPV 10.1 (7.4-10.4) fL Neut % (Auto) 78.0 % Lymph % (Auto) 10.3 % Emanuel % (Auto) 8.4 % Eos % (Auto) 1.3 % Baso % (Auto) 0.7 % Neut # (Auto) 6.5 (1.8-7.7) 10^3/u L Lymph # (Auto) 0.9 (0.8-4.8) 10^3/u L Emanuel # (Auto) 0.7 (0.2-0.9) 10^3/u L Eos # (Auto) 0.1 (0.0-0.8) 10^3/u L Baso # (Auto) 0.1 (0.0-0.1) 10^3/u L Nucleated RBC % (a uto) 0 % Nucleated RBCs # 0.0 /100WBC Specimen Type Sample Site ABG pH (7.35-7.45) ABG pCO2 (35-45) mmHg ABG pO2 (80.0-100.0) mmH g ABG HCO3 (22-26) mmol/L ABG O2 Saturation ABG Base Excess (-2.0-2.0) mmol/ L Carlos Test A-a O2 Gradient (5-10) mmHg Hematocrit (42-52) % Hgb O2 Saturation (95-100) % Carboxyhemoglobin (0.4-20.1) %THgb Methemoglobin (0.4-1.5) % Total Hemoglobin (14-18) g/dL Ionized Calcium (1.1-1.4) mmol/L O2 Delivery Device O2 Liters/Min % FiO2 % Box Lining Machine Operator ID Sodium 134 L (136-145) mmol/L Potassium 4.0 (3.5-5.1) mmol/L Chloride 91 L (98-107) mmol/L Carbon Dioxide 27 (22-29) mmol/L Anion Gap 20.0 H (5-19) BUN 18 (8-23) mg/dL Creatinine 1.0 (0.7-1.2) mg/dL Glucose 165 H (74-106) mg/dL Calcium 12.0 H (8.8-10.2) mg/Dl Total Bilirubin 0.4 (0.15-1.2) mg/dL AST 23 (0-40) U/L ALT 16 (0-41) U/L Alkaline Phosphata se 151 H (40-130) IU/L Troponin I 6 Hour (0-15) ng/L Troponin I Hi Sens Del (0-12) ng/L Troponin T Baselin e 33 H (0-15) ng/mL Troponin T 120 Min tiffany (0-15) ng/mL Delta Troponin T (0-10) ABS# NT-Pro-B Natriuret Pep 262 (0-450) pg/mL Total Protein 6.6 (6.6-8.7) g/dL Albumin 3.2 L (3.5-5.2) g/dL Globulin 3.4 (1.3-4.6) g/dL Influenza Type A A g (Negative) POC Influenza B Ag (Negative) 11/02/19 11/02/19 11/02/19 Range/Units 11:48 13:28 13:42 WBC (4.0-10.0) 10^3/ uL RBC (4.1-5.3) 10^6/u L Hgb (11.7-16.6) g/dL Hct (42.0-52.0) % MCV (80-94) fL MCH (28.0-34.0) pg MCHC (30.0-36.0) g/dL RDW (12.1-15.1) % Plt Count (130-400) 10^3/c mm MPV (7.4-10.4) fL Neut % (Auto) % Lymph % (Auto) % Emanuel % (Auto) % Eos % (Auto) % Baso % (Auto) % Neut # (Auto) (1.8-7.7) 10^3/u L Lymph # (Auto) (0.8-4.8) 10^3/u L Emanuel # (Auto) (0.2-0.9) 10^3/u L Eos # (Auto) (0.0-0.8) 10^3/u L Baso # (Auto) (0.0-0.1) 10^3/u L Nucleated RBC % (a uto) % Nucleated RBCs # /100WBC Specimen Type Arterial Sample Site Brachial, left ABG pH 7.49 H (7.35-7.45) ABG pCO2 38.8 (35-45) mmHg ABG pO2 49.5 L (80.0-100.0) mmH g ABG HCO3 29.3 H (22-26) mmol/L ABG O2 Saturation 87.2 ABG Base Excess 5.5 H (-2.0-2.0) mmol/ L Carlos Test N/a A-a O2 Gradient 185.6 H (5-10) mmHg Hematocrit 43.0 (42-52) % Hgb O2 Saturation 84.9 L (95-100) % Carboxyhemoglobin 2.0 (0.4-20.1) %THgb Methemoglobin 0.6 (0.4-1.5) % Total Hemoglobin 14.0 (14-18) g/dL Ionized Calcium 1.5 H (1.1-1.4) mmol/L O2 Delivery Device Nc O2 Liters/Min 5.0 % FiO2 40.0 % Box Lining Machine Operator ID gd Sodium 136.0 (136-145) mmol/L Potassium 3.5 (3.5-5.1) mmol/L Chloride (98-107) mmol/L Carbon Dioxide (22-29) mmol/L Anion Gap (5-19) BUN (8-23) mg/dL Creatinine (0.7-1.2) mg/dL Glucose 122.0 H (74-106) mg/dL Calcium (8.8-10.2) mg/Dl Total Bilirubin (0.15-1.2) mg/dL AST (0-40) U/L ALT (0-41) U/L Alkaline Phosphata se (40-130) IU/L Troponin I 6 Hour (0-15) ng/L Troponin I Hi Sens Del (0-12) ng/L Troponin T Baselin e (0-15) ng/mL Troponin T 120 Min tiffany 29.59 H (0-15) ng/mL Delta Troponin T -3.41 L (0-10) ABS# NT-Pro-B Natriuret Pep (0-450) pg/mL Total Protein (6.6-8.7) g/dL Albumin (3.5-5.2) g/dL Globulin (1.3-4.6) g/dL Influenza Type A A g Negative (Negative) POC Influenza B Ag Negative (Negative) 11/02/19 Range/Units 17:30 WBC (4.0-10.0) 10^3/ uL RBC (4.1-5.3) 10^6/u L Hgb (11.7-16.6) g/dL Hct (42.0-52.0) % MCV (80-94) fL MCH (28.0-34.0) pg MCHC (30.0-36.0) g/dL RDW (12.1-15.1) % Plt Count (130-400) 10^3/c mm MPV (7.4-10.4) fL Neut % (Auto) % Lymph % (Auto) % Emanuel % (Auto) % Eos % (Auto) % Baso % (Auto) % Neut # (Auto) (1.8-7.7) 10^3/u L Lymph # (Auto) (0.8-4.8) 10^3/u L Emanuel # (Auto) (0.2-0.9) 10^3/u L Eos # (Auto) (0.0-0.8) 10^3/u L Baso # (Auto) (0.0-0.1) 10^3/u L Nucleated RBC % (a uto) % Nucleated RBCs # /100WBC Specimen Type Sample Site ABG pH (7.35-7.45) ABG pCO2 (35-45) mmHg ABG pO2 (80.0-100.0) mmH g ABG HCO3 (22-26) mmol/L ABG O2 Saturation ABG Base Excess (-2.0-2.0) mmol/ L Carlos Test A-a O2 Gradient (5-10) mmHg Hematocrit (42-52) % Hgb O2 Saturation (95-100) % Carboxyhemoglobin (0.4-20.1) %THgb Methemoglobin (0.4-1.5) % Total Hemoglobin (14-18) g/dL Ionized Calcium (1.1-1.4) mmol/L O2 Delivery Device O2 Liters/Min % FiO2 % Box Lining Machine Operator ID Sodium (136-145) mmol/L Potassium (3.5-5.1) mmol/L Chloride (98-107) mmol/L Carbon Dioxide (22-29) mmol/L Anion Gap (5-19) BUN (8-23) mg/dL Creatinine (0.7-1.2) mg/dL Glucose (74-106) mg/dL Calcium (8.8-10.2) mg/Dl Total Bilirubin (0.15-1.2) mg/dL AST (0-40) U/L ALT (0-41) U/L Alkaline Phosphata se (40-130) IU/L Troponin I 6 Hour 32.77 H (0-15) ng/L Troponin I Hi Sens Del -0.23 L (0-12) ng/L Troponin T Baselin e (0-15) ng/mL Troponin T 120 Min tiffany (0-15) ng/mL Delta Troponin T (0-10) ABS# NT-Pro-B Natriuret Pep (0-450) pg/mL Total Protein (6.6-8.7) g/dL Albumin (3.5-5.2) g/dL Globulin (1.3-4.6) g/dL Influenza Type A A g (Negative) POC Influenza B Ag (Negative) Imaging Data^: CTA Chest: Radiologist's impression: [place] [address] CT Scan Report Signed Patient: Reginald Vizcaino #: [id number] : 1940Acct#:[id number] Age/Sex: 79 / MADM Date: 11/02/19 Loc: ERRoom/Bed: Attending Dr: Ordering Provider/Ordering MD: Nataly Brady MD, [facility] [place] of Service: 11/02/19 Procedure(s): CT angio chest PE protcl [id number] Accession Number(s): [id number] Report Number: [id number] WS: [id number] CTA scan of the chest with IV contrast. Additional two-dimensional coronal and sagittal reconstruction and MIP images was performed. 11/02/2019 Clinical Data: known PE, diagnosed last week. Having worsening SOB Comparison: PA chest, 10/24/2019 DLP: 806.[address] scans at [facility] use at least one of these dose optimization techniques: automated exposure control; mA and/or kV adjustment per patient size (includes targeted exams where dose is matched to clinical indication); or iterative reconstruction. Findings: The central pulmonary arteries and peripheral pulmonary arteries fill normally with no evidence of intermittent luminal filling defects. No pulmonary embolic disease is noted. Lack of filling of the right upper lobe arteries but this is unchanged from before. The right upper lobe mass is not changed in size, 4.69 cm, and there is cavitary change within. The heart size is normal with a small pericardial effusion. The pulmonary arterial system and thoracic aorta demonstrate no abnormalities or dilatations. The peribronchial and subcarinal adenopathy have not changed. Right pleural effusion remains the same.. The thyroid gland shows normal enhancement. The trachea bifurcates into the bronchi. The pulmonary vascularity has increased. The severe bronchiectatic changes throughout the lungs remain the same. 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 CT/CT angio chest PE protcl [id number] Impression: 1. Negative for pulmonary embolic disease. 2. Increased pulmonary vascular congestion. 3. No change in right upper lobe mass with mediastinal adenopathy. 4. Severe emphysema. Dictated By:Diana Banuelos MD Signed By:Diana Banuelos MDSigned Date/Time:11/02/19 1332 DD/ 1320 EKG Data^: EKG 1: Attestation: I personally reviewed and interpreted this EKG as follows: EKG Interpretation Date: 11/02/19 EKG interpretation time: 11:47 Prior EKG tracings: not available for review Interpretation: Sinus tachycardia. Heart rate 111. Revised arm leads We will advised to repeat Discharge Plan Discharge Patient Disposition: Placed in Observation Clinical Impression: Acute respiratory failure Condition: Stable Prescriptions: No Action metformin 500 mg Tablet 500 mg PO BID RF: 0 furosemide [Lasix] 20 mg Tablet 20 - 40 mg PO DAILY PRN (Reason: EDEMA) RF: 0 diclofenac sodium [Voltaren] 1 % Gel 2 - 4 g TOPICAL PRN PRN (Reason: Pain) RF: 0 multivitamin [Multiple Vitamins] Tablet 1 tab PO DAILY RF: 0 ibuprofen 200 mg Tablet 400 mg PO Q4H PRN (Reason: Pain) RF: 0 Eliquis 5 mg tablet 5 mg PO BID RF: 0 Referrals: Sheri Mcbride APN [Primary Care Provider] - Coding Level of Care Code ED Air Bag Builder for Chg Fwd Exam Problem Focused The documentation recorded by the Red newman Stephanie Lyn, accurately reflects the service I personally performed and the decisions made by Caitlyn de Adegoke I, MD, [facility]
--- NOTE | 2019-11-02 11:27 | CT_ITS ---
WS: [id number] CTA scan of the chest with IV contrast. Additional two-dimensional coronal and sagittal reconstructio n and MIP images was performed. 11/02/2019 Clinical Data: known PE, diagnosed last week. Having worsening SOB Comparison: PA chest, 10/24/2019 DLP: 806.[address] scans at [facility] use at least one of these dose optimization techniques: automat ed exposure control; mA and/or kV adjustment per patient size (includes targeted exams where dose is matched to clinical indication); or iterative reconstruction. Findings: The central pulmonary arteries and peripheral pulmonary arteries fill normally with no evidence of in termittent luminal filling defects. No pulmonary embolic disease is noted. Lack of filling of the rig ht upper lobe arteries but this is unchanged from before. The right upper lobe mass is not changed in size, 4.69 cm, and there is cavitary change within. The h eart size is normal with a small pericardial effusion. The pulmonary arterial system and thoracic aor ta demonstrate no abnormalities or dilatations. The peribronchial and subcarinal adenopathy have not changed. Right pleural effusion remains the same.. The thyroid gland shows normal enhancement. The tr achea bifurcates into the bronchi. The pulmonary vascularity has increased. The severe bronchiectatic changes throughout the lungs remain the same. 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 CT/CT angio chest PE protcl [id number] Impression: 1. Negative for pulmonary embolic disease. 2. Increased pulmonary vascular congestion. 3. No change in right upper lobe mass with mediastinal adenopathy. 4. Severe emphysema.
--- NOTE | 2019-11-02 11:31 | ECG_ITS ---
Measurements Intervals [place] Rate: 111 P: 109 VT: 167 QRS: 123 QRSD: 90 T: 119 QT: 332 QTc: 452 SINUS TACHYCARDIA ARM LEADS REVERSED [INVERTED P AND QRS IN I] ABNORMAL RHYTHM ECG Compared to ECG 10/25/2019 02:51:38 No significant changes Electronically Signed On 11-02-2019 19:27:31 INSTRUCTIONAL TECHNOLOGY COACH by Shira Montelongo M.D. [id number] f
[2019-11-02 11:44] LABS: Basophils # 0.1 10^3/uL (0.0-0.1); Basophils % 0.7 %; Eosinophils # 0.1 10^3/uL (0.0-0.8); Eosinophils % 1.3 %; Hematocrit 41.2 % (42.0-52.0); Lymphocytes # 0.9 10^3/uL (0.8-4.8); Lymphocytes % 10.3 %; Mean Corpuscular HGB Conc 31.6 g/dL (30.0-36.0); Mean Corpuscular Hemoglobin 26.6 pg (28.0-34.0); Mean Corpuscular Volume 84.3 fL (80-94); Mean Platelet Volume 10.1 fL (7.4-10.4); Monocytes # 0.7 10^3/uL (0.2-0.9); Monocytes % 8.4 %; Neutrophils # 6.5 10^3/uL (1.8-7.7); Nucleated Red Blood Cells % 0 %; Platelet Count 501 10^3/cmm (130-400); Red Blood Count 4.89 10^6/uL (4.1-5.3); Red Cell Distribution Width 19.8 % (12.1-15.1); White Blood Count 8.3 10^3/uL (4.0-10.0)
[2019-11-02 12:01] LABS: Troponin(5th) Baseline 33 ng/mL (0-15)
[2019-11-02 12:04] LABS: ABG PCO2 38.8 mmHg (35-45); ABG PH Result 7.49 (7.35-7.45); Alveolar-Arterial Oxygen Gradi 185.6 mmHg (5-10); Base Excess ABG 5.5 mmol/L (-2.0-2.0); Blood Gas Sample Site Brachial, left; Blood Gas Sample Type Arterial; HCO3 ABG 29.3 mmol/L (22-26); HGB O2 Sat 84.9 % (95-100); Ionized Calcium Level - ABG 1.5 mmol/L (1.1-1.4); Methemoglobin 0.6 % (0.4-1.5); Oxygen Saturation ABG 87.2; PO2 ABG 49.5 mmHg (80.0-100.0); Potassium Level - ABG 3.5 mmol/L (3.5-5.0)
[2019-11-02 12:09] LABS: Albumin Level 3.2 g/dL (3.5-5.2); Alkaline Phosphatase 151 IU/L (40-130); Aspartate Amino Transferase 23 U/L (0-40); Blood Urea Nitrogen 18 mg/dL (8-23); Carbon Dioxide 27 mmol/L (22-29); Chloride 91 mmol/L (98-107); Globulin 3.4 g/dL (1.3-4.6); Glucose 165 mg/dL (74-106); NT Pro B Type Natriuretic Pept 262 pg/mL (0-450); Sodium 134 mmol/L (136-145); Total Bilirubin 0.4 mg/dL (0.15-1.2); Total Protein 6.6 g/dL (6.6-8.7)
[2019-11-02 12:20] LABS: Alanine Aminotransferase 16 U/L (0-41)
[2019-11-02] MEDS: iohexol 350 mg/mL 100 mL Btl IV (12:55)
--- NOTE | 2019-11-02 13:31 | ECG_ITS ---
Measurements Intervals [place] Rate: 106 P: 79 KS: 170 QRS: 78 QRSD: 91 T: 76 QT: 334 QTc: 444 SINUS TACHYCARDIA ABNORMAL RHYTHM ECG Compared to ECG 10/25/2019 02:51:38 No significant changes Electronically Signed On 11-02-2019 19:35:23 BOOK PACKER by Shira Montelongo M.D. [email or web address] f
[2019-11-02 13:45] LABS: Oxygen Device NC
[2019-11-02 14:16] LABS: Troponin 5 2HR 29.59 ng/mL (0-15)
[2019-11-02 14:19] LABS: Influenza A by IFA Negative (Negative); Influenza B by IFA Negative (Negative)
[2019-11-02 14:32] LABS: Troponin 5 2HR Delta -3.41 ABS# (0-10)
--- NOTE | 2019-11-02 17:31 | ECG_ITS ---
Measurements Intervals [place] Rate: 92 P: 71 VT: 160 QRS: 57 QRSD: 93 T: 69 QT: 349 QTc: 432 SINUS RHYTHM Compared to ECG 10/25/2019 02:51:38 Sinus tachycardia no longer present Electronically Signed On 11-02-2019 19:37:23 AQUATICS SPECIALIST by Shira Montelongo M.D. [email or web address]
[2019-11-02 17:54] LABS: Troponin 5 6HR 32.77 ng/L (0-15)
[2019-11-02 18:00] LABS: Troponin 5 6HR Delta -0.23 ng/L (0-12)
--- NOTE | 2019-11-02 18:53 | P.HP_ITS ---
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 He states that he has tried to increase the flow on his oxygen tank, but has still been short of breath. In ER he is found needing 6 L oxygen by nasal cannula, and reportedly desaturated down into the 60s when he tried to walk to the restroom without his oxygen on. Due to worsening of hypoxia CTA was repeated, currently negative for PE, with reported pulmonary vascular congestion without change in right upper lobe mass and mediastinal adenopathy, with severe emphysema, reported severe bronchiectatic changes throughout the lungs. He reports he has been taking Eliquis. Denies lower extremity edema. Denies gaining weight. Denies significant orthopnea. He has had no chest pain. He has been having some cough productive of clear sputum. Review of Systems Const: Reports: fatigue; Denies: fever or chills Eyes: Denies: change in vision or eye redness ENMT: Denies: throat pain Card: Denies: chest pain, edema, lightheadedness or syncope Resp: Reports: shortness of breath and productive cough GI: Denies: abdominal pain, nausea, vomiting or blood in stool : Denies: flank pain, urinary frequency or urinary urgency Musc: Denies: back pain Skin/Breast: Denies: rash or nail changes Neuro: Denies: headache, dizziness, vertigo or confusion Psych: Denies: anxiety or panic attacks Endo: Denies: excessive urination Sid/Lymph: Reports: easy bruising; Denies: petechiae Medications/Allergies Home Medications Medication Instructions Recorded Confirmed Last Taken Type apixaban [Eliquis] 5 mg PO BID 11/02/19 11/02/19 11/02/19 History Allergies Allergy/AdvReac Type Severity Reaction Status Date / Time No Known Allergies Allergy Verified 10/24/19 16:09 PFSH Acute PFSH: Statuses (acute, chronic, etc) shown below reflect problem list status as previously entered and may not be historically accurate Medical History BPH (benign prostatic hyperplasia) (Acute) COPD (chronic obstructive pulmonary disease) (Acute) Diabetes (Acute) Dyslipidemia (Acute) GERD (gastroesophageal reflux disease) (Acute) Normal colonoscopy (Acute) Right inguinal hernia (Acute) Squamous cell lung cancer (Acute) -Has known squamous cell R lung cancer, stage IV -Has recently completed radiation therapy for lung; pending radiation therapy for abdominal mass (10/28/2019 for simulation) -Has received 6 cycles of chemotherapy with carboplatin/paclitaxel -Follows up with Dr. Thronton -Noted evidence of enlarging right hilar mass and a left adrenal nodule on imaging Surgical History H/O inguinal hernia repair (Acute) History of appendectomy (Acute) Hx of tonsillectomy (Acute) S/P TURP (Acute) Family History (Updated 11/02/19 @ 19:03 by Fabricio Morris MD) Mother Diabetes Brother Cancer Parkinsons disease Brother Cancer HODKINS LYMPHOMA Sister Parkinsons disease Social History Smoking and tobacco status: former smoker Alcohol intake: former Marital status: Vitals/I&O/Wt Last Vital Signs Temp 98.5 F 11/02/19 11:04 Pulse 98 11/02/19 17:05 Resp 16 11/02/19 17:05 BP 112/60 11/02/19 17:05 Pulse Ox 91 11/02/19 17:05 Weight last 48 hrs Weight 65.317 kg Physical Exam Const: COMMON NORMALS: no apparent distress and oriented x3 GENERAL APPEARANCE: frail appearing HENMT: COMMON NORMALS: oropharynx normal Neck/C-Spine: COMMON NORMALS: no JVD Resp: COMMON NORMALS: normal respiratory effort and clear to auscultation bilaterally AUSCULTATION: clear to auscultation bilaterally Cardio: COMMON NORMALS: no JVD, regular rhythm, S1 normal heart sound, S2 normal heart sound and no murmurs RHYTHM: regular rhythm HEART SOUNDS: S1 normal and S2 normal GI: COMMON NORMALS: normal to inspection, nondistended, normoactive bowel sounds, soft to palpation and non-tender PALPATION: Yes soft Extremity: COMMON NORMALS: no joint enlargement and no pedal edema Neuro: COMMON NORMALS: oriented x3 and moves all extremities Skin: COMMON NORMALS: no rashes or lesions noted GENERAL SKIN EXAM: no rashes or lesions noted Data : 11/02/19 11:38 11/02/19 11:38 A&P Assessment and plan (1) Acute respiratory failure: Requiring 6 L of oxygen by nasal cannula. Reports that he tried increasing the flow on his home oxygen device, however, without improvement in symptoms. In ER while getting up to the restroom without oxygen desaturated down into the 60s. Because of this is not entirely clear. He did have a PE during last admission, however it was small, and currently on repeat CTA no PE is noted. 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 Possible pulmonary vascular congestion seen on imaging, however, he does not present with symptoms of fluid overload/CHF. There is severe emphysema, bronchiectasis, and perhaps these in conjunction with cancer, perhaps a small PE combined together producing his hypoxia. Discussed with pulmonology, there is concern for possible progression of his malignancy with lymphangitic spread. There is also concern for possible pneumonitis, perhaps related to his radiation treatment. At this time we will start him on prednisone 40 mg daily. Provide oxygen support. We will have him follow-up with pulmonology in 1 week in office. Status: Acute Qualifiers: Respiratory failure complication: hypoxia Qualified Code(s): J96.01 - Acute respiratory failure with hypoxia Code(s): J96.00 - Acute respiratory failure, unspecified whether with hypoxia or hypercapnia (2) Pneumonitis: Concern for possible radiation pneumonitis. At this time we will start him on prednisone. Continue oxygen support. Follow-up with pulmonology in office. Status: Acute Code(s): J18.9 - Pneumonia, unspecified organism (3) Pulmonary embolism: Currently no PE seen on repeat CTA. Continue anticoagulation with Eliquis. Status: Acute Qualifiers: Pulmonary embolism type: single subsegmental (without acute cor pulmonale) Qualified Code(s): I26.93 - Single subsegmental pulmonary embolism without acute cor pulmonale Code(s): I26.99 - Other pulmonary embolism without acute cor pulmonale (4) Squamous cell lung cancer: Continue follow-up with Dr. Thornton, Dr. Henley. Status: Acute Qualifiers: Laterality: right Qualified Code(s): C34.91 - Malignant neoplasm of unspecified part of right bronchus or lung Code(s): C34.90 - Malignant neoplasm of unspecified part of unspecified bronchus or lung (5) COPD (chronic obstructive pulmonary disease): With perhaps mild exacerbation if any. He reports some cough, however, productive of clear sputum. On exam he has good air entry, without wheezing, rhonchi or crackles. At this time he is started on prednisone. Due to increased oxygen requirement he is placed in observation Continue oxygen support. We will add breathing treatments. Status: Acute Code(s): J44.9 - Chronic obstructive pulmonary disease, unspecified Attestations Medical Necessity Statement*: Place in observation for now. Coding Level of Care Code Acute Milling Machine Set Up Operator for [facility] Diagnoses Acute respiratory failure J96.01 Respiratory failure complication: hypoxia Pneumonitis J18.9 Pulmonary embolism I26.93 Pulmonary embolism type: single subsegmental (without acute cor pulmonale) Squamous cell lung cancer C34.91 Laterality: right COPD (chronic obstructive pulmonary disease) J44.9
--- NOTE | 2019-11-02 19:42 | P.CONIM_ITS ---
Providers/Reason For Consult Consulting Physican/Specialty*: Pulmonology Reason for Consult*: Acute hypoxic respiratory failure in the setting of lung cancer Attending Physician: Fabricio Morris Primary Care Provider: Sheri Mcbride History of Present Illness History of Present Illness Reginald Vizcaino is a 79 year old male who presented to the hospital with worsening shortness of breath and hypoxia measured at home. The patient has a history of emphysema, COPD and was diagnosed with squamous cell lung cancer in July of last year. The diagnosis was made from endobronchial biopsy and mediastinoscopy with biopsy of 4R lymph node station. Since the diagnosis, the patient has received radiation therapy in the right upper lobe lung mass and abdomen he was also treated with chemotherapy that did not include targeted therapy. Patient was admitted earlier this month and was found to have a right lower lobe small pulmonary embolus. He was started on anticoagulation and was discharged home on October 27. The patient was discharged on home oxygen. The patient sta valentin today, that following his discharge he was doing fairly well at home however progressively his shortness of breath got worse to an extent that he was short of breath to walk to the bathroom from his room. He also noticed his oxygen saturation to be 45% at home with a pulse oximeter and subsequently presented to the hospital. In the ER he was found to have an oxygen saturation in the 60s. With a concern for repeat pulmonary embolus a CT angiogram was obtained however there was no evidence of any new embolus in the last embolus was not present anymore. I have performed an extensive review of the patient's chart. In June and July when the patient was diagnosed with lung cancer the patient had evidence of emphysema predominantly in bilateral upper lobes however the lower lobes appear to be relatively spared. There was no evidence of fibrosis, traction bronchiectasis or interlobular septal thickening. Over the past 3 months there has been a significant change in the radiology. The patient has developed a right pleural effusion. On the CAT scan obtained today, there is significant reticulation with traction bronchiectasis predominantly on the right side. There is interlobular septal thickening with nodularity involving both lungs more on the right side compared to the left. There is also some questionable groundglass opacity. The patient states that since she came to the hospital, he is breathing better with oxygen however is still getting significantly short of breath with ambulation. The patient used to be on dexamethasone therapy that was taken off recently. He complains of cough with minimal sputum production, no significant worsening of wheezing no hemoptysis. Review of Systems Narrative: General: No fevers chills night sweats. Complains of fatigue Skin: No rash HEENT: No nasal congestion, rhinitis, sinusitis, sneezing, hoarseness of voice. There is no blurred vision, double vision, redness of the eye or visual loss. There is no oral ulcer, sore throat or dry mouth. Neck: There is no neck swelling, mass or swollen glands. Respiratory: Please see my HPI. Cardiovascular: No chest pain, significant shortness of breath, no orthopnea, proximal nocturnal dyspnea, palpitation or lower extremity edema. Gastrointestinal: No abdominal pain, nausea, vomiting, melena Musculoskeletal: No joint pain or swelling, muscle weakness, morning stiffness, numbness or tingling. Neurological: Patient is awake alert and oriented x3, no paralysis, gross motor function is normal. Psychiatric: No anxiety or depression. Meds/Allergies Home Medications and Allergies Home Medications Medication Instructions Recorded Confirmed Type diclofenac sodium [Voltaren] 2 - 4 g TOPICAL PRN PRN 10/24/19 11/02/19 History furosemide [Lasix] 20 - 40 mg PO DAILY PRN 10/24/19 11/02/19 History ibuprofen 400 mg PO Q4H PRN 10/24/19 11/02/19 History metformin 500 mg PO BID 10/24/19 11/02/19 History multivitamin [Multiple Vitamins] 1 tab PO DAILY 10/24/19 11/02/19 History apixaban [Eliquis] 5 mg PO BID 11/02/19 11/02/19 History Allergies Allergy/AdvReac Type Severity Reaction Status Date / Time No Known Allergies Allergy Verified 10/24/19 16:09 PFSH Acute PFSH: Statuses (acute, chronic, etc) shown below reflect problem list status as previously entered and may not be historically accurate Medical History BPH (benign prostatic hyperplasia) (Acute) COPD (chronic obstructive pulmonary disease) (Acute) Diabetes (Acute) Dyslipidemia (Acute) GERD (gastroesophageal reflux disease) (Acute) Normal colonoscopy (Acute) Right inguinal hernia (Acute) Squamous cell lung cancer (Acute) -Has known squamous cell R lung cancer, stage IV -Has recently completed radiation therapy for lung; pending radiation therapy for abdominal mass (10/28/2019 for simulation) -Has received 6 cycles of chemotherapy with carboplatin/paclitaxel -Follows up with Dr. Thornton -Noted evidence of enlarging right hilar mass and a left adrenal nodule on imaging Surgical History H/O inguinal hernia repair (Acute) History of appendectomy (Acute) Hx of tonsillectomy (Acute) S/P TURP (Acute) Family History Mother Diabetes Brother Cancer Parkinsons disease Brother Cancer HODKINS LYMPHOMA Sister Parkinsons disease Social History Smoking and tobacco status: former smoker Alcohol intake: former Marital status: Vitals/I&O/Wt Last Vital Signs Temp 98.5 F 11/02/19 11:04 Pulse 98 11/02/19 17:05 Resp 16 11/02/19 17:05 BP 112/60 11/02/19 17:05 Pulse Ox 91 11/02/19 17:05 Weight last 48 hrs Weight 144 lb Physical Exam Narrative: EXAM NARRATIVE: General: Patient is awake alert and oriented, in no significant distress while resting. HEENT: Pupil bilateral symmetric, light and accommodation reflex present, extraocular muscle movement intact, no deformity of the nose Neck: No JVD, no cervical or supraclavicular lymphadenopathy. Respiratory: Inspection: No visible deformity of the chest wall, barrel-shaped chest Palpation: Trachea is mildly deviated to the right, bilateral reduced expansion Percussion: Bilateral tympanic percussion note both anterior and posteriorly Auscultation: Reduced breath sound bilaterally, no crackles or wheezing, occasio nal rhonchi at the right lower lung zone Cardiovascular: Regular rate and rhythm, S1-S2 present, distant heart sound, no murmur, no right ventricular heave, no peripheral edema. Abdomen: Soft, nontender, nondistended, positive bowel sound. No palpable organomegaly. Skin: No rash, no evidence of erythema nodosum or multiforme. Neuro: Mental status is normal, no gross cranial nerve deficit, normal motor and coordination. Data Other Data: Other data: All labs are reviewed. Please see the description of the radiology data in the HPI. A&P Assessment and plan (1) Acute respiratory failure: The patient has acute hypoxic respiratory failure. The etiology of this is multiple. The patient has significant emphysema which is predominantly in the upper lobes. When compared to the chest x-ray and CT scans obtained prior to the initiation of radiation therapy, currently, the patient has significant progression of reticulation predominantly in the right lower lobe, traction bronchiectasis, interlobular nodular septal thickening. The patient has also developed a right- sided pleural effusion that was not present at the time of cancer diagnosis. The differential for progression of this disease include, acute radiation pneumonitis, lymphangitic spread of the malignancy, and infectious etiology. The presence of groundglass opacity, reticulation and traction bronchiectasis in the right lobe is possibly secondary to the radiation however there is also presence of interlobular septal thickening in the left lower lobe which would be inconsistent with a diagnosis of radiation pneumonitis as this would be not in the radiation field. The patient has nodular interlobular septal thickening which would be consistent with lymphangitic spread and is associated with profound hypoxia and severe shortness of breath. Based on the patient's progression of symptoms, new right- sided pleural effusion, I believe the patient has lymphangitic spread of his cancer. I do not have any reason to believe that he is having an acute bacterial infectious process contributing to his symptoms. However, there is a concern for pneumocystis infection, that can cause formation of cysts and p rofound hypoxia. However there is no significant involvement of bilateral upper lobes which is usually involved by PCP. The patient used to be on steroid therapy which is a risk factor for PCP pneumonia especially in the setting of immunosuppressive therapy. At this point, I would recommend starting the patient on standing DuoNeb and Pulmicort. The patient can be started on 40 mg of prednisone. I will get an LDH level. Obtain sputum sample for PCP stain. A course of levofloxacin for 5 days. On discharge the patient can be started on triple inhaler therapy. I will be happy to follow-up with the patient as outpatient. The prognosis of this patient is unfortunately very poor. Status: Acute Qualifiers: Respiratory failure complication: hypoxia Qualified Code(s): J96.01 - Acute respiratory failure with hypoxia Code(s): J96.00 - Acute respiratory failure, unspecified whether with hypoxia or hypercapnia (2) Squamous cell lung cancer: Patient has stage IV lung cancer with possible lymphangitic spread. Status: Acute Qualifiers: Laterality: right Qualified Code(s): C34.91 - Malignant neoplasm of unspecified part of right bronchus or lung Code(s): C34.90 - Malignant neoplasm of unspecified part of unspecified bronchus or lung Coding Level of Care Code Acute Residential Support Specialist for [facility] Diagnoses Acute respiratory failure J96.01 Respiratory failure complication: hypoxia Squamous cell lung cancer C34.91 Laterality: right
[2019-11-02] MEDS: predniSONE 20 mg Tablet 40 MG PO (23:17)
[2019-11-03] VITALS (18 sets, daily range): BP systolic 106–137; BP diastolic 68–87; PULSE 99–115; RESP 18–22; TEMP 36.4–36.6; O2SAT 80–99
[2019-11-03 00:02] LABS: Lactate Dehydrogenase 245 U/L (135-225)
[2019-11-03] MEDS: ipratropium-albuterol 3 mL Neb INHALATION ×6 (00:28→20:23)
[2019-11-03 03:42] LABS: Alanine Aminotransferase 14 U/L (0-41); Albumin Level 2.9 g/dL (3.5-5.2); Alkaline Phosphatase 150 IU/L (40-130); Anion Gap 16.2 (5-19); Aspartate Amino Transferase 20 U/L (0-40); Blood Urea Nitrogen 17 mg/dL (8-23); Calcium 11.3 mg/Dl (8.8-10.2); Carbon Dioxide 27 mmol/L (22-29); Chloride 97 mmol/L (98-107); Globulin 3.6 g/dL (1.3-4.6); Glucose 190 mg/dL (74-106); Potassium 4.2 mmol/L (3.5-5.1); Sodium 136 mmol/L (136-145); Total Bilirubin 0.3 mg/dL (0.15-1.2); Total Protein 6.5 g/dL (6.6-8.7)
[2019-11-03 03:55] LABS: Basophils % 0.2 %; Eosinophils % 0.3 %; Hematocrit 36.8 % (42.0-52.0); Hemoglobin 11.8 g/dL (11.7-16.6); Lymphocytes # 0.2 10^3/uL (0.8-4.8); Lymphocytes % 2.1 %; Mean Corpuscular HGB Conc 32.1 g/dL (30.0-36.0); Mean Corpuscular Hemoglobin 26.8 pg (28.0-34.0); Mean Corpuscular Volume 83.6 fL (80-94); Mean Platelet Volume 10.6 fL (7.4-10.4); Monocytes # 0.3 10^3/uL (0.2-0.9); Monocytes % 3.5 %; Neutrophils # 8.1 10^3/uL (1.8-7.7); Neutrophils % 93.2 %; Nucleated Red Blood Cells % 0 %; Platelet Count 465 10^3/cmm (130-400); Red Cell Distribution Width 19.7 % (12.1-15.1); White Blood Count 8.7 10^3/uL (4.0-10.0)
[2019-11-03] MEDS: predniSONE 20 mg Tablet 40 MG PO (11:56)
[2019-11-03] MEDS: sulfamethoxazole-trimeth DS 160-800 mg Tablet 2 TAB PO ×3 (11:56→20:35)
[2019-11-03] MEDS: saline nasal spray 44mL Btl 1 SPRAY NASAL (13:00)
[2019-11-03] MEDS: pantoprazole DR 40 mg Tablet PO (13:01)
[2019-11-03] MEDS: FUROsemide 20 mg Tablet PO (13:02)
[2019-11-03] MEDS: apixaban 5 mg Tablet PO ×2 (13:03→18:10)
--- NOTE | 2019-11-03 15:32 | PC.CHAP ---
Pastoral Care Encounter/Spiritual Assessment Type of Contact [] Declined operator command support systems visit [] Patient/Family/Request visit [] Outpatient visit [] Follow-up visit [] Physician referral [] Code/Alert [] Routine visit [] Staff referral [] Actively dying [] Patient sleeping [] Family support [] [] Out of room [] Palliative care [] [] Receiving care in room [] Pre-surgical visit [] Trauma [] Long length of stay [] ICU visit [] Other: Relational/Emotional Strength [] Patient feels connected with others/family/visitors/staff [] Distress [] Loneliness/isolation [] Abandonment Spirituality of Patient [x] Person of [place] [x] Attends Rastafarian of their [place] [x] Believes in Prayer [] Reads Bible or Baptist materials [] There are Spiritual issues to be addressed [place] Interventions [x] Prayer [x] Active listening [] Non-anxious presence [] Spiritual/emotional support [] Crisis/trauma care [] Spiritual counseling [] Bereavement support [] Provided bereavement packet [] Provided Bible/devotional materials [] Provided toy/stuffed animal, coloring book to patient or family member [x] Completed spiritual assessment [] Provided Communion [] Anointing/Tatamy [] Salvation [] Other: Impact on Illness or Injury [] Angry [] Fearful [] Anxious [] Often cries [] Exhaustion [x] Unable to work [] Unable to attend caodaism [] Unable to walk/stand [] Unable to read [] Unable to drive [] Unable to eat/drink [] Unable to sleep [] Unable to be with family [] Other: Summary in relatively good health except of the stroke morales agrue Time spent with patient
--- NOTE | 2019-11-03 19:06 | P.PN_ITS ---
Subjective Subjective: Interval history: He is feeling comfortable with oxygen supplementation, however, reports that his saturation has been staying low today, requiring increase in oxygen flow. Has some intermittent cough. Sometimes productive of sputum. Vitals/I&O/Wt Last Vital Signs Temp 97.8 F 11/03/19 15:15 Pulse 115 H 11/03/19 15:15 Resp 22 H 11/03/19 15:15 BP 127/71 11/03/19 15:15 Pulse Ox 89 L 11/03/19 15:15 11/03/19 11/03/19 11/03/19 06:59 14:59 22:59 Intake Total 600 / 600 120 / 720 Output Total 320 / 320 Balance -320 / -320 600 / 600 120 / 720 Weight last 48 hrs Weight 63.673 kg Weight 65.317 kg Physical Exam Const: COMMON NORMALS: no apparent distress and oriented x3 GENERAL APPEARANCE: frail appearing OTHER: Oxygen mask in place. is at bedside. HENMT: COMMON NORMALS: oropharynx normal Neck/C-Spine: COMMON NORMALS: no JVD Resp: COMMON NORMALS: normal respiratory effort and clear to auscultation bilaterally AUSCULTATION: clear to auscultation bilaterally Cardio: COMMON NORMALS: no JVD, regular rhythm, S1 normal heart sound, S2 normal heart sound and no murmurs RHYTHM: regular rhythm HEART SOUNDS: S1 normal and S2 normal GI: COMMON NORMALS: normal to inspection, nondistended, normoactive bowel sounds, soft to palpation and non-tender PALPATION: Yes soft Extremity: COMMON NORMALS: no joint enlargement and no pedal edema Neuro: COMMON NORMALS: oriented x3 and moves all extremities Skin: COMMON NORMALS: no rashes or lesions noted GENERAL SKIN EXAM: no rashes or lesions noted A&P Assessment and plan (1) Acute respiratory failure: Oxygen requirement increased overnight and this morning. Today requiring up to 15 L by mask, later down somewhat to 12 L. He is comfortable on oxygen supplementation. Does not have chest pain. Intermittent cough, sometimes productive of sputum. Due to severity of hypoxia, there is concern for PCP pneumonia, also given immunosuppression, at this time he was started empirically on Bactrim. Sputum was requested for PCP for send out, as well as culture. With persistent hypoxia, will also broaden antibiotic coverage with Zosyn. Continue prednisone 40 mg. Oxygen support. Etiology is not entirely clear. He did have a PE during last admission, however it was small, and currently on repeat CTA no PE is noted. 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 Possible pulmonary vascular congestion seen on imaging, however, he does not present with symptoms of fluid ove rload/CHF. There is severe emphysema, bronchiectasis, and perhaps these in conjunction with cancer, perhaps a small PE combined together producing his hypoxia. Discussed with pulmonology, there is concern for possible progression of his malignancy with lymphangitic spread. There is also concern for possible pneumonitis, perhaps related to his radiation treatment. Status: Acute Qualifiers: Respiratory failure complication: hypoxia Qualified Code(s): J96.01 - Acute respiratory failure with hypoxia Code(s): J96.00 - Acute respiratory failure, unspecified whether with hypoxia or hypercap tate (2) Pneumonitis: Concern for possible radiation pneumonitis. At this time we will start him on prednisone. Continue oxygen support. Follow-up with pulmonology in office. Status: Acute Code(s): J18.9 - Pneumonia, unspecified organism (3) Pulmonary embolism: Currently no PE seen on repeat CTA. Continue anticoagulation with Eliquis. Status: Acute Qualifiers: Pulmonary embolism type: single subsegmental (without acute cor pulmonale) Qualified Code(s): I26.93 - Single subsegmental pulmonary embolism without acute cor pulmonale Code(s): I26.99 - Other pulmonary embolism without acute cor pulmonale (4) Squamous cell lung cancer: Continue follow-up with Dr. Thornton, Dr. Henley. Status: Acute Qualifiers: Laterality: right Qualified Code(s): C34.91 - Malignant neoplasm of unspecified part of right bronchus or lung Code(s): C34.90 - Malignant neoplasm of unspecified part of unspecified bronchus or lung (5) COPD (chronic obstructive pulmonary disease): With perhaps mild exacerbation if any. He reports some cough, however, productive of clear sputum. On exam he has good air entry, without wheezing, rhonchi or crackles. As above. Due to increased oxygen requirement with deterioration requiring admission. Continue oxygen support. Status: Acute Code(s): J44.9 - Chronic obstructive pulmonary disease, unspecified Attestations Medical Necessity Statement*: Requiring admission of over 2 midnights for assessment and management of acute hypoxic respiratory failure with multiple underlying comorbidities. Coding Level of Care Code Acute Mathematical Statistician for [facility] Diagnoses Acute respiratory failure J96.01 Respiratory failure complication: hypoxia Pneumonitis J18.9 Pulmonary embolism I26.93 Pulmonary embolism type: single subsegmental (without acute cor pulmonale) Squamous cell lung cancer C34.91 Laterality: right COPD (chronic obstructive pulmonary disease) J44.9
[2019-11-03] MEDS: piperacillin-tazobactam 3.375 GM in sodium chloride 0.9% (plus) 50 ML IV (20:35)
[2019-11-03] MEDS: acetaminophen 325 mg Tablet 650 MG PO (20:35)
[2019-11-04] VITALS (22 sets, daily range): BP systolic 117–161; BP diastolic 68–89; PULSE 65–113; RESP 16–24; TEMP 36.5–36.8; O2SAT 87–97
[2019-11-04] MEDS: ipratropium-albuterol 3 mL Neb INHALATION ×7 (00:50→23:17)
--- NOTE | 2019-11-04 00:59 | PC.NURSE ---
DURING MIDNIGHT VITAL SIGNS PATIENT 02 STATUS ON 82% ON 15L OXY MASK, PATIENT WITH C/O SHORTNESS OF BREATH, INSTRUCTED PATIENT TO TAKE DEEP BREATHS AND TRY TO COUGH, ADJUSTED PATIENT UP IN BED TO HIGH FOWLERS, 02 ON 86%, PATIENT CONTINUES TO DEEP BREATH, 02 ABLE TO COME UP TO 88%, NOTIFIED DR. TAYLOR AT 12:14 WHO WILL COME TO THE FLOOR AND EVALUATE PATIENT, NOTIFIED RESPIRATORY. 11/04/2019 @ [address] DR. TAYLOR ON FLOOR AND HIGH FLOW PLACED ON PATIENT WITH RESPIRATORY AND CONTINUOS PULSE OX IN PLACE AND WORKING.
--- NOTE | 2019-11-04 01:22 | PM.MISC ---
Miscellaneous Note Note: Called by nursing staff to inform me that patient was desaturating, had been requiring 12 to 15 L oxygen mask with saturation down in the high 80s. Requested respiratory place him on heated high flow, currently on FiO2 of 80%, 45 L. He is saturating in the mid 90s. No distress. Continuous pulse oximetry ordered. We will continue to monitor patient closely throughout the night. Nursing staff updated. Vital signs otherwise stable. On reassessment he has fallen asleep, resting comfortably.
[2019-11-04] MEDS: piperacillin-tazobactam 3.375 GM in sodium chloride 0.9% (plus) 50 ML IV ×3 (03:30→20:49)
[2019-11-04 06:44] LABS: Basophils % 0.2 %; Hematocrit 34.8 % (42.0-52.0); Hemoglobin 11.2 g/dL (11.7-16.6); Lymphocytes # 0.3 10^3/uL (0.8-4.8); Lymphocytes % 2.3 %; Mean Corpuscular HGB Conc 32.2 g/dL (30.0-36.0); Mean Corpuscular Hemoglobin 26.7 pg (28.0-34.0); Mean Corpuscular Volume 83.1 fL (80-94); Mean Platelet Volume 10.9 fL (7.4-10.4); Monocytes # 0.7 10^3/uL (0.2-0.9); Monocytes % 6.4 %; Neutrophils # 10.1 10^3/uL (1.8-7.7); Neutrophils % 90.6 %; Nucleated Red Blood Cells % 0 %; Platelet Count 510 10^3/cmm (130-400); Red Blood Count 4.19 10^6/uL (4.1-5.3); Red Cell Distribution Width 19.4 % (12.1-15.1); White Blood Count 11.1 10^3/uL (4.0-10.0)
[2019-11-04 06:53] LABS: Alanine Aminotransferase 14 U/L (0-41); Albumin Level 3.2 g/dL (3.5-5.2); Alkaline Phosphatase 150 IU/L (40-130); Anion Gap 15.9 (5-19); Aspartate Amino Transferase 23 U/L (0-40); Blood Urea Nitrogen 18 mg/dL (8-23); Calcium 10.7 mg/Dl (8.8-10.2); Carbon Dioxide 29 mmol/L (22-29); Chloride 96 mmol/L (98-107); Globulin 3.5 g/dL (1.3-4.6); Glucose 169 mg/dL (74-106); Potassium 3.9 mmol/L (3.5-5.1); Sodium 137 mmol/L (136-145); Total Bilirubin 0.2 mg/dL (0.15-1.2); Total Protein 6.7 g/dL (6.6-8.7)
[2019-11-04] MEDS: pantoprazole DR 40 mg Tablet PO (08:24)
[2019-11-04] MEDS: predniSONE 20 mg Tablet 40 MG PO (08:24)
[2019-11-04] MEDS: sulfamethoxazole-trimeth DS 160-800 mg Tablet 2 TAB PO ×3 (08:24→20:49)
[2019-11-04] MEDS: apixaban 5 mg Tablet PO ×2 (08:24→17:16)
[2019-11-04] MEDS: FUROsemide 20 mg Tablet PO (08:24)
--- NOTE | 2019-11-04 08:32 | PC.NURSE ---
Pt resting in bed with eyes open. Remains on high flow oxygen @ 45% with oxygen saturation 89-91%. Resp slightly labored. Becomes easily short of breath when talking. Will cont to monitor
--- NOTE | 2019-11-04 10:28 | PC.CHAP ---
Pastoral Care Encounter/Spiritual Assessment Type of Contact [] Declined campground attendant visit [] Patient/Family/Request visit [] Outpatient visit [] Follow-up visit [] Physician referral [] Code/Alert [x] Routine visit [] Staff referral [] Actively dying [] Patient sleeping [x] Family support [] [] Out of room [] Palliative care [] [] Receiving care in room [] Pre-surgical visit [] Trauma [] Long length of stay [] ICU visit [] Other: Relational/Emotional Strength [x] Patient feels connected with others/family/visitors/staff [] Distress [] Loneliness/isolation [] Abandonment Spirituality of Patient [x] Person of [place] [x] Attends Confucianism of their [place] [x] Believes in Prayer [] Reads Bible or Zoroastrian materials [] There are Spiritual issues to be addressed Hydrate Control Tender Interventions [x] Prayer [x] Active listening [x] Non-anxious presence [x] Spiritual/emotional support [] Crisis/trauma care [] Spiritual counseling [] Bereavement support [] Provided bereavement packet [] Provided Bible/devotional materials [] Provided toy/stuffed animal, coloring book to patient or family member [] Completed spiritual assessment [] Provided Communion [] Anointing/[place] [] Salvation [] Other: Impact on Illness or Injury [] Angry [] Fearful [] Anxious [] Often cries [] Exhaustion [] Unable to work [] Unable to attend confucianism [] Unable to walk/stand [] Unable to read [] Unable to drive [] Unable to eat/drink [] Unable to sleep [] Unable to be with family [x] Other: one family mw\ember Summary very tired and unhappy Time spent with patient 10 min
[2019-11-04] MEDS: ALPRAZolam 0.25 mg Tablet 0.125 MG PO ×2 (11:04→23:19)
--- NOTE | 2019-11-04 11:10 | PC.NURSE ---
Pt resting in bed with with eyes open. Pt noted to be slightly anxious. PRN xanax given. O2 saturation 92% on 45% high flow at this time. at bedside
--- NOTE | 2019-11-04 14:13 | PC.NURSE ---
Pt assisted to BSC at this time x2. Pt O2 saturation decreased 74-80% on high flow at 45%. Pt assisted back to bed, instructed on deep breathing. O2 up to 88-89% after approx 2-3 minutes. Resp remain slightly labored at this time. at bedside. Call light in reach, will continue to monitor
--- NOTE | 2019-11-04 17:18 | PC.NURSE ---
Pt sitting up on side of bed eating supper. O2 saturation 91% on high flow.
--- NOTE | 2019-11-04 20:11 | PC.NURSE ---
Dr. Nova in room with patient and this nurse, patient stats at 88% on 45L 75% o2, resp called for treatment and replacement of humidified water bag, this nurse stayed with patient until resp arrived, breathing treatment was given and patient stats maintain between 88-90% on 45L 75% 02. Patient with coarse breath sounds with audible wheezes at this time. Will monitor patient closely.
--- NOTE | 2019-11-04 20:41 | PM.PN ---
Subjective Subjective: Interval history: Overnight more hypoxic. States that his oxygen saturation appears to be lower anytime he moves around. Vitals/I&O/Wt Last Vital Signs Temp 97.9 F 11/04/19 19:26 Pulse 99 11/04/19 20:06 Resp 21 H 11/04/19 20:06 BP 161/89 11/04/19 19:26 Pulse Ox 90 11/04/19 20:06 11/04/19 11/04/19 11/04/19 06:59 14:59 22:59 Intake Total 50 / 1250 580 / 580 720 / 1300 Output Total 420 / 420 Balance 50 / 1250 580 / 580 300 / 880 Weight last 48 hrs Weight 65.516 kg Weight 63.673 kg Physical Exam Const: COMMON NORMALS: no apparent distress and oriented x3 GENERAL APPEARANCE: frail appearing OTHER: Oxygen mask in place. Gets short of breath with activity. HENMT: COMMON NORMALS: oropharynx normal Neck/C-Spine: COMMON NORMALS: no JVD Resp: COMMON NORMALS: normal respiratory effort and clear to auscultation bilaterally AUSCULTATION: clear to auscultation bilaterally Cardio: COMMON NORMALS: no JVD, regular rhythm, S1 normal heart sound, S2 normal heart sound and no murmurs RHYTHM: regular rhythm HEART SOUNDS: S1 normal and S2 normal GI: COMMON NORMALS: normal to inspection, nondistended, normoactive bowel sounds, soft to palpation and non-tender PALPATION: Yes soft Extremity: COMMON NORMALS: no joint enlargement and no pedal edema Neuro: COMMON NORMALS: oriented x3 and moves all extremities Skin: COMMON NORMALS: no rashes or lesions noted GENERAL SKIN EXAM: no rashes or lesions noted A&P Assessment and plan (1) Acute respiratory failure: Oxygenation worse, requiring 45 L FiO2. Continues on empiric antibiotics with Bactrim, Zosyn. Notified pulmonology of worsening in his condition. We will switch him to IV steroids. Continue high flow cannula. Repeat CXR in AM. Intermittent cough, sometimes productive of sputum. Due to severity of hypoxia, there is concern for PCP pneumonia, also given immunosuppression. Etiology is not entirely clear. He did have a PE during last admission, however, it was small, and currently on repeat CTA no PE is noted. 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 Possible pulmonary vascular congestion seen on imaging, however, he does not present with symptoms of fluid overload/CHF. There is severe emphysema, bronchiectasis, and perhaps these in conjunction with cancer, perhaps a small PE combined together producing his hypoxia. Discussed with pulmonology, there is concern for possible progression of his malignancy with lymphangitic spread. There is also concern for possible pneumonitis, perhaps related to his radiation treatment. He appears on the dry side, so we will hold further Lasix. Status: Acute Qualifiers: Respiratory failure complication: hypoxia Qualified Code(s): J96.01 - Acute respiratory failure with hypoxia Code(s): J96.00 - Acute respiratory failure, unspecified whether with hypoxia or hypercapnia (2) Pneumonitis: Concern for possible radiation pneumonitis. At this time we will start him on prednisone. Continue oxygen support. Follow-up with pulmonology. Status: Acute Code(s): J18.9 - Pneumonia, unspecified organism (3) Pulmonary embolism: Currently no PE seen on repeat CTA. Continue anticoagulation with Eliquis. Status: Acute Qualifiers: Pulmonary embolism type: single subsegmental (without acute cor pulmonale) Qualified Code(s): I26.93 - Single subsegmental pulmonary embolism without acute cor pulmonale Code(s): I26.99 - Other pulmonary embolism without acute cor pulmonale (4) Squamous cell lung cancer: Continue follow-up with Dr. Thornton, Dr. Mccrary. Status: Acute Qualifiers: Laterality: right Qualified Code(s): C34.91 - Malignant neoplasm of unspecified part of right bronchus or lung Code(s): C34.90 - Malignant neoplasm of unspecified part of unspecified bronchus or lung (5) COPD (chronic obstructive pulmonary disease): With perhaps mild exacerbation if any. He reports some cough, however, productive of clear sputum. On exam he has good air entry, without wheezing, rhonchi or crackles. As above. Due to increased oxygen requirement with deterioration requiring admission. Continue oxygen support. Status: Acute Code(s): J44.9 - Chronic obstructive pulmonary disease, unspecified Attestations Medical Necessity Statement*: Continue admission for assessment management of acute respiratory failure with hypoxia. Coding Level of Care Code Acute Supervisor Ref[employer] Products for [facility] Diagnoses Acute respiratory failure J96.01 Respiratory failure complication: hypoxia Pneumonitis J18.9 Pulmonary embolism I26.93 Pulmonary embolism type: single subsegmental (without acute cor pulmonale) Squamous cell lung cancer C34.91 Laterality: right COPD (chronic obstructive pulmonary disease) J44.9
--- NOTE | 2019-11-04 23:24 | PC.NURSE ---
During rounds on patient, patient was trying to reposition himself up to the side of the bed to use the urinal, patient continuos pulse ox alarming and patient de stated to 67% with 45L high flow in place with c/o of shortness of breath, assisted patient to high fowlers, with instructions on slow deep, breaths, respiratory already on floor, notified her and charge nurse who came to patients room, discussed the need for a Archer and would probably be best at this time due to patient de saturation, respiratory started a breathing treatment, this nurse notified Dr. Nova at 11/04/2019, 2306 for possibly Archer insertion, Dr then arrived to floor to assess patient, charge nurse, this nurse, and respiratory still at bedside with patient, Dr. Nova asked charge nurse to step out into the [place] and further orders and discussion was given. Zero orders on patient care received by this nurse from Dr. Rohini Portillo.
--- NOTE | 2019-11-04 23:29 | PC.NURSE ---
Oxygen saturation: Called to the bedside by pt care nurse due to pt oxygen saturation reading 67% while sitting at the side of the bed using the urinal. Pt appears anxious. Assisted the pt with taking slow, deep breaths. Respiratory and Physician mitigation supervisor notified and will come to assess. Pt assisted back to supine position and oxygen increased to 50L and 80%o2. Pt oxygen slowly recovering wi Spo2 now 88%. Xanax given by pt care nurse and will place huber catheter.
[2019-11-05] VITALS (24 sets, daily range): BP systolic 111–145; BP diastolic 65–79; PULSE 95–111; RESP 18–24; TEMP 36.4–36.9; O2SAT 85–92
--- NOTE | 2019-11-05 02:03 | PC.NURSE ---
11/04/2019 @23:19 PATIENT GIVEN XANAX BY THIS NURSE PER ORDERS PO, AFTER CHARGE NURSE AND PHYSICIAN DISCUSSED PATIENT BEING ANXIOUS.
--- NOTE | 2019-11-05 02:04 | PC.NURSE ---
PATIENT RESTING IN BED AT THIS TIME WITH EYES CLOSED, APPEARS TO BE CALM AND LESS ANXIOUS THAN HE HAS BEEN SINCE START OF SHIFT, CONTINUOS PULSE OX IN PLACE AND PATIENT 02 STAT ARE MAINTAINING AT 93% ON 45L @77%. PATIENT IS WITHOUT SIGNS OF DISTRESS AT THIS TIME, WILL CONTINUE TO MONITOR PATIENT CLOSELY.
[2019-11-05 02:47] LABS: Hematocrit 36.4 % (42.0-52.0); Hemoglobin 11.8 g/dL (11.7-16.6); Lymphocytes # 0.1 10^3/uL (0.8-4.8); Lymphocytes % 1.3 %; Mean Corpuscular HGB Conc 32.4 g/dL (30.0-36.0); Mean Corpuscular Hemoglobin 27.3 pg (28.0-34.0); Mean Corpuscular Volume 84.1 fL (80-94); Mean Platelet Volume 10.6 fL (7.4-10.4); Monocytes # 0.3 10^3/uL (0.2-0.9); Monocytes % 3.3 %; Neutrophils # 9.5 10^3/uL (1.8-7.7); Neutrophils % 94.8 %; Nucleated Red Blood Cells % 0 %; Platelet Count 492 10^3/cmm (130-400); Red Blood Count 4.33 10^6/uL (4.1-5.3); Red Cell Distribution Width 19.5 % (12.1-15.1)
[2019-11-05] MEDS: ipratropium-albuterol 3 mL Neb INHALATION ×6 (03:14→23:32)
[2019-11-05 03:31] LABS: Alanine Aminotransferase 15 U/L (0-41); Albumin Level 3.2 g/dL (3.5-5.2); Alkaline Phosphatase 133 IU/L (40-130); Anion Gap 19.8 (5-19); Aspartate Amino Transferase 24 U/L (0-40); Blood Urea Nitrogen 19 mg/dL (8-23); Calcium 10.5 mg/Dl (8.8-10.2); Carbon Dioxide 24 mmol/L (22-29); Chloride 94 mmol/L (98-107); Globulin 2.9 g/dL (1.3-4.6); Glucose 205 mg/dL (74-106); Potassium 4.8 mmol/L (3.5-5.1); Sodium 133 mmol/L (136-145); Total Bilirubin 0.2 mg/dL (0.15-1.2); Total Protein 6.1 g/dL (6.6-8.7)
[2019-11-05] MEDS: piperacillin-tazobactam 3.375 GM in sodium chloride 0.9% (plus) 50 ML IV ×3 (04:08→20:52)
--- NOTE | 2019-11-05 06:00 | XR_ITS ---
WS: [id number] Portable AP upright chest, 11/05/2019 Clinical Data: Hypoxia Comparison: Multiple chest, 10/24/2019 Findings: The patient has bilateral consolidation in the right lower lobe, right middle lobe and enti re left lung which has occurred since the last chest x-ray. Only the right upper lobe is free of this consolidation. The medial right upper lobe mass is not changed in size. No pneumothorax is seen. The heart size is normal. The aortic arch and descending aorta are tortuous. The left PICC line remains in the same position. Monitor leads are on the chest wall. XR/XR chest 1V portable [id number] Impression: 1. Diffuse bilateral consolidation which may represent acute pneumonia. 2. No change in medial right upper lobe mass.
--- NOTE | 2019-11-05 06:52 | PC.NURSE ---
PATIENT PUT CALL LIGHT ON THIS NURSE WENT TO ANSWER CALL LIGHT PATIENT STATING HE NEEDED TO PEE, PATIENT REPOSITIONED HIMSELF TO USE THE URINAL WHILE SITTING IN BED AND HE DE STATED VERY QUICK TO 83% PATIENT BECAME ANXIOUS DUE TO PULSE OX ALARM SOUNDING, PRACTICED DEEP BREATHING EXERCISES WITH PATIENT AND IMAGING HIMSELF IN HIS FAVORITE PLACE AND AFTER SEVERAL MINS PATIENT WAS ABLE TO BRING HIS 02 STATS UP TO 90%. SEVERAL ATTEMPTS MADE DURING SHIFT TO PLACE FERNANDEZ CATH ORDERED BUT WAS UNSUCCESSFUL, WILL CHECK TO SEE IF DR. MENENDEZ WILL CONSULT
[2019-11-05] MEDS: budesonide 0.5 mg/2 mL Neb INHALATION ×2 (07:07→19:21)
[2019-11-05] MEDS: apixaban 5 mg Tablet PO ×2 (09:58→17:09)
[2019-11-05] MEDS: sulfamethoxazole-trimeth DS 160-800 mg Tablet 2 TAB PO ×2 (09:58→14:40)
[2019-11-05] MEDS: pantoprazole DR 40 mg Tablet PO (09:58)
--- NOTE | 2019-11-05 17:40 | P.PN_ITS ---
Subjective Subjective: Interval history: The patient was seen and examined. He appears comfortable however requiring high flow nasal cannula to maintain adequate saturation. Chest x-ray today revealed diffuse infiltrate involving the left lung and right lower lobe. The right upper lobe appears to be spared. The patient had been getting treated with Zosyn and Bactrim and IV steroids however there had been significant progress of the infiltrate on the chest x-ray compared to the initial chest x-ray when he appeared in the hospital. Medications: Reviewed: Yes Vitals/I&O/Wt Last Vital Signs Temp 98.5 F 11/05/19 15:45 Pulse 106 H 11/05/19 15:50 Resp 22 H 11/05/19 15:50 BP 112/65 11/05/19 15:45 Pulse Ox 89 L 11/05/19 15:50 11/05/19 11/05/19 11/05/19 06:59 14:59 22:59 Intake Total 220 / 1520 640 / 640 Output Total 400 / 820 Balance -180 / 700 640 / 640 Weight last 48 hrs Weight 142 lb 7 oz Weight 144 lb 7 oz Physical Exam Narrative: EXAM NARRATIVE: General: Patient is awake alert and oriented, in no distress while resting. HEENT: Pupil bilateral symmetric, light and accommodation reflex present, extraocular muscle movement intact Neck: No JVD, no cervical or supraclavicular lymphadenopathy. Respiratory: Auscultation: Bilateral crackles audible in the left anterior hemithorax and right mid and lower lung zone both anteriorly and posteriorly, no wheezing or rhonchi Cardiovascular: Regular rate and rhythm, S1-S2 present, no murmur, no right ventricular heave, no peripheral edema. Abdomen: Soft, nontender, nondistended, positive bowel sound Musculoskeletal: No obvious joint deformity Neuro: Mental status is normal, no gross cranial nerve deficit, normal motor and coordination. Data Other Data: Other data: I have reviewed the patient's chest x-ray and the previous radiology data in addition to the lab work. There is significant progression in the infiltrate compared to the initial chest x-ray obtained in the ER on admission. A&P Assessment and plan (1) Acute respiratory failure: When the patient was admitted to the hospital there was no definitive evidence of acute pneumonia. My primary concern was a PCP pneumonia in the setting of chronic steroid use, pneumonitis secondary to radiation therapy or progression of the cancer with lymphangitic spread contributing to this hypoxia. However over the past few days, there had been significant progression resulting in diffuse infiltrate in the left hemithorax as well as right lower lobe. I am going to broaden the antibiotic coverage with Zyvox, Zosyn and Levaquin. Given his recent hospital admission and immunocompromise status, he is at risk for infection with resistant organisms. I will get a urine Legionella, pneumococcal antigen testing. MRSA nasal PCR. Procalcitonin. We will continue the supportive therapy with high flow nasal cannula. Given the patient's severe emphysema in the past the patient will take a significant amount of time to improve. This dense consolidation is inconsistent with PCP. Patient with sparing of the right upper lobe. PCP pneumonia usually presents with upper lobe predominant bilateral diffuse infiltrate. I will continue to follow the patient. Status: Acute Qualifiers: Respiratory failure complication: hypoxia Qualified Code(s): J96.01 - Acute respiratory failure with hypoxia Code(s): J96.00 - Acute respiratory failure, unspecified whether with hypoxia or hypercapnia (2) Squamous cell lung cancer: The patient has evidence of progression of squamous cell lung cancer on chemotherapy. His prognosis is poor Status: Acute Qualifiers: Laterality: right Qualified Code(s): C34.91 - Malignant neoplasm of unspecified part of right bronchus or lung Code(s): C34.90 - Malignant neoplasm of unspecified part of unspecified bronchus or lung (3) Pulmonary embolism: The small PE diagnosed on the last hospital admission had resolved on the CTA obtained on this hospital admission. We will continue with the Eliquis. Status: Acute Qualifiers: Pulmonary embolism type: single subsegmental (without acute cor pulmonale) Qualified Code(s): I26.93 - Single subsegmental pulmonary embolism without acute cor pulmonale Code(s): I26.99 - Other pulmonary embolism without acute cor pulmonale Attestations Medical Necessity Statement*: Will defer to the primary team Coding Level of Care Code Acute Casualty Insurance Claim Adjuster for [facility] Diagnoses Acute respiratory failure J96.01 Respiratory failure complication: hypoxia Squamous cell lung cancer C34.91 Laterality: right Pulmonary embolism I26.93 Pulmonary embolism type: single subsegmental (without acute cor pulmonale)
[2019-11-05] MEDS: levofloxacin-dextrose 5 % 750 MG/150 ML PREMIX 150 MG IV (18:12)
[2019-11-05 18:42] LABS: Procalcitonin 0.14 ng/mL (0-0.8)
--- NOTE | 2019-11-05 20:21 | PM.PN ---
Subjective Subjective: Interval history: It severely dyspneic with exertion. Today he is feeling perhaps very slightly better. Oxygen flow was able to be turned down to 40 L. Vitals/I&O/Wt Last Vital Signs Temp 98.5 F 11/05/19 15:45 Pulse 103 H 11/05/19 19:26 Resp 20 H 11/05/19 19:26 BP 112/65 11/05/19 15:45 Pulse Ox 89 L 11/05/19 19:26 11/05/19 11/05/19 11/05/19 06:59 14:59 22:59 Intake Total 220 / 1520 640 / 640 50 / 690 Output Total 400 / 820 Balance -180 / 700 640 / 640 50 / 690 Weight last 48 hrs Weight 64.609 kg Weight 65.516 kg Physical Exam Const: COMMON NORMALS: no apparent distress and oriented x3 GENERAL APPEARANCE: frail appearing OTHER: High flow cannula on. Gets short of breath with activity. Today appears slightly more energetic. is at bedside. HENMT: COMMON NORMALS: oropharynx normal Neck/C-Spine: COMMON NORMALS: no JVD Resp: COMMON NORMALS: normal respiratory effort and clear to auscultation bilaterally AUSCULTATION: clear to auscultation bilaterally Cardio: COMMON NORMALS: no JVD, regular rhythm, S1 normal heart sound, S2 normal heart sound and no murmurs RHYTHM: regular rhythm HEART SOUNDS: S1 normal and S2 normal GI: COMMON NORMALS: normal to inspection, nondistended, normoactive bowel sounds, soft to palpation and non-tender PALPATION: Yes soft Extremity: COMMON NORMALS: no joint enlargement and no pedal edema Neuro: COMMON NORMALS: oriented x3 and moves all extremities Skin: COMMON NORMALS: no rashes or lesions noted GENERAL SKIN EXAM: no rashes or lesions noted Data : 11/05/19 02:15 11/05/19 02:15 A&P Assessment and plan (1) Acute respiratory failure: Persistent hypoxia, although today feeling slightly better. Flow rate was able to be turned down to 40 L. Repeated chest x-ray today, with finding of progression of bilateral opacities. With concern for acute pneumonia. By pulmonary recommendations antibiotic coverage broadened with Zyvox and Levaquin. Bactrim stopped. Steroid discontinued. Continues on Pulmicort, duo nebs. Status: Acute Qualifiers: Respiratory failure complication: hypoxia Qualified Code(s): J96.01 - Acute respiratory failure with hypoxia Code(s): J96.00 - Acute respiratory failure, unspecified whether with hypoxia or hypercapnia (2) Pneumonitis: At this time suspected infectious pneumonia. Status: Acute Code(s): J18.9 - Pneumonia, unspecified organism (3) Pulmonary embolism: No PE seen on repeat CTA. Continue anticoagulation with Eliquis. Status: Acute Qualifiers: Pulmonary embolism type: single subsegmental (without acute cor pulmonale) Qualified Code(s): I26.93 - Single subsegmental pulmonary embolism without acute cor pulmonale Code(s): I26.99 - Other pulmonary embolism without acute cor pulmonale (4) Squamous cell lung cancer: Continue follow-up with Dr. Thornton, Dr. Mccrary. Status: Acute Qualifiers: Laterality: right Qualified Code(s): C34.91 - Malignant neoplasm of unspecified part of right bronchus or lung Code(s): C34.90 - Malignant neoplasm of unspecified part of unspecified bronchus or lung (5) COPD (chronic obstructive pulmonary disease): With perhaps mild exacerbation if any. He reports some cough, however, productive of clear sputum. On exam he has good air entry, without wheezing, rhonchi or crackles. As above. Status: Acute Code(s): J44.9 - Chronic obstructive pulmonary disease, unspecified Attestations Medical Necessity Statement*: Continue admission for assessment management of acute respiratory failure with hypoxia. Coding Level of Care Code Acute Associate Automation Engineer for [facility] Diagnoses Acute respiratory failure J96.01 Respiratory failure complication: hypoxia Pneumonitis J18.9 Pulmonary embolism I26.93 Pulmonary embolism type: single subsegmental (without acute cor pulmonale) Squamous cell lung cancer C34.91 Laterality: right COPD (chronic obstructive pulmonary disease) J44.9
[2019-11-05] MEDS: linezolid premix 600 MG/300 ML PREMIX 300 MG IV (20:25)
[2019-11-06] VITALS (93 sets, daily range): BP systolic 92–134; BP diastolic 62–84; PULSE 89–119; RESP 16–36; TEMP 36.4–36.8; O2SAT 80–97; BMI 21.6
[2019-11-06] MEDS: ALPRAZolam 0.25 mg Tablet 0.125 MG PO ×2 (02:16→09:02)
[2019-11-06] MEDS: ipratropium-albuterol 3 mL Neb INHALATION ×6 (03:31→23:56)
[2019-11-06] MEDS: piperacillin-tazobactam 3.375 GM in sodium chloride 0.9% (plus) 50 ML IV ×3 (04:13→21:38)
[2019-11-06 05:33] LABS: Basophils % 0.1 %; Hematocrit 35.9 % (42.0-52.0); Hemoglobin 11.6 g/dL (11.7-16.6); Lymphocytes # 0.2 10^3/uL (0.8-4.8); Lymphocytes % 2.1 %; Mean Corpuscular HGB Conc 32.3 g/dL (30.0-36.0); Mean Corpuscular Hemoglobin 27.7 pg (28.0-34.0); Mean Corpuscular Volume 85.7 fL (80-94); Mean Platelet Volume 10.6 fL (7.4-10.4); Monocytes # 0.9 10^3/uL (0.2-0.9); Monocytes % 7.5 %; Neutrophils # 10.3 10^3/uL (1.8-7.7); Neutrophils % 89.8 %; Nucleated Red Blood Cells % 0 %; Platelet Count 484 10^3/cmm (130-400); Red Blood Count 4.19 10^6/uL (4.1-5.3); Red Cell Distribution Width 19.5 % (12.1-15.1); White Blood Count 11.4 10^3/uL (4.0-10.0)
[2019-11-06 05:53] LABS: Alanine Aminotransferase 19 U/L (0-41); Albumin Level 3.2 g/dL (3.5-5.2); Alkaline Phosphatase 129 IU/L (40-130); Anion Gap 17.4 (5-19); Aspartate Amino Transferase 33 U/L (0-40); Blood Urea Nitrogen 23 mg/dL (8-23); Calcium 10.7 mg/Dl (8.8-10.2); Carbon Dioxide 25 mmol/L (22-29); Chloride 95 mmol/L (98-107); Globulin 3.3 g/dL (1.3-4.6); Glucose 145 mg/dL (74-106); Potassium 5.4 mmol/L (3.5-5.1); Sodium 132 mmol/L (136-145); Total Bilirubin 0.2 mg/dL (0.15-1.2); Total Protein 6.5 g/dL (6.6-8.7)
[2019-11-06] MEDS: linezolid premix 600 MG/300 ML PREMIX 300 MG IV (06:44)
[2019-11-06] MEDS: budesonide 0.5 mg/2 mL Neb INHALATION ×2 (07:30→20:57)
[2019-11-06] MEDS: pantoprazole DR 40 mg Tablet PO (09:02)
[2019-11-06] MEDS: acetaminophen 325 mg Tablet 650 MG PO (09:02)
[2019-11-06] MEDS: apixaban 5 mg Tablet PO ×2 (09:02→21:41)
--- NOTE | 2019-11-06 10:38 | PC.NURSE ---
Report called to RADHA Rivera in ICU.
--- NOTE | 2019-11-06 11:32 | P.PN_ITS ---
Subjective Subjective: Interval history: Currently he reports he is feeling all right. High flow nasal cannula is on. Overnight reported desaturating very easily down into the low to mid 80s with even minimal movements. He does appear to at times attempt to stand up to urinate. He has some intermittent cough. Denies chest pain. Vitals/I&O/Wt Last Vital Signs Temp 98.0 F 11/06/19 07:50 Pulse 105 H 11/06/19 07:50 Resp 20 H 11/06/19 07:50 BP 126/73 11/06/19 07:50 Pulse Ox 90 11/06/19 07:50 11/05/19 11/06/19 11/06/19 22:59 06:59 14:59 Intake Total 350 / 990 50 / 1040 Output Total 475 / 475 100 / 100 Balance 350 / 990 -425 / 565 -100 / -100 Weight last 48 hrs Weight 64.495 kg Weight 64.609 kg Physical Exam Const: COMMON NORMALS: no apparent distress and oriented x3 GENERAL APPEARANCE: frail appearing OTHER: High flow cannula on. Gets short of breath with activity. Today appears slightly more energetic. is at bedside. HENMT: COMMON NORMALS: oropharynx normal Neck/C-Spine: COMMON NORMALS: no JVD Resp: COMMON NORMALS: normal respiratory effort and clear to auscultation bilaterally AUSCULTATION: clear to auscultation bilaterally Cardio: COMMON NORMALS: no JVD, regular rhythm, S1 normal heart sound, S2 normal heart sound and no murmurs RHYTHM: regular rhythm HEART SOUNDS: S1 normal and S2 normal GI: COMMON NORMALS: normal to inspection, nondistended, normoactive bowel sounds, soft to palpation and non-tender PALPATION: Yes soft Extremity: COMMON NORMALS: no joint enlargement and no pedal edema Neuro: COMMON NORMALS: oriented x3 and moves all extremities Skin: COMMON NORMALS: no rashes or lesions noted GENERAL SKIN EXAM: no rashes or lesions noted Data : 11/06/19 05:00 11/06/19 05:00 Micro: Microbiology 11/05/19 18:15 Bacterial Antigens - Final Urine,Clean Catch 11/05/19 18:15 Legionella Urinary Antigen - Final Urine,Clean Catch A&P Assessment and plan (1) Acute respiratory failure: Yesterday again had to be increased to 45 L on high flow cannula. Desaturating very easily down to low to mid 80s. Due to this will be moved to ICU for closer monitoring. Persistent hypoxia, although today feeling slightly better. Continue treatment for pneumonia. Continues on Pulmicort, duo nebs. Status: Acute Qualifiers: Respiratory failure complication: hypoxia Qualified Code(s): J96.01 - Acute respiratory failure with hypoxia Code(s): J96.00 - Acute respiratory failure, unspecified whether with hypoxia or hypercapnia (2) Pneumonitis: At this time suspected infectious pneumonia. Status: Acute Code(s): J18.9 - Pneumonia, unspecified organism (3) Pulmonary embolism: No PE seen on repeat CTA. Continue anticoagulation with Eliquis. Status: Acute Qualifiers: Pulmonary embolism type: single subsegmental (without acute cor pulmonale) Qualified Code(s): I26.93 - Single subsegmental pulmonary embolism without acute cor pulmonale Code(s): I26.99 - Other pulmonary embolism without acute cor pulmonale (4) Squamous cell lung cancer: Continue follow-up with Dr. Thornton, Dr. Mccrary. Status: Acute Qualifiers: Laterality: right Qualified Code(s): C34.91 - Malignant neoplasm of unspecified part of right bronchus or lung Code(s): C34.90 - Malignant neoplasm of unspecified part of unspecified bronchus or lung (5) COPD (chronic obstructive pulmonary disease): With perhaps mild exacerbation if any. Status: Acute Code(s): J44.9 - Chronic obstructive pulmonary disease, unspecified Attestations Medical Necessity Statement*: Continue admission for assessment and of good respiratory failure with hypoxia. Coding Level of Care Code Acute Administrative Accountant for [facility] Diagnoses Acute respiratory failure J96.01 Respiratory failure complication: hypoxia Pneumonitis J18.9 Pulmonary embolism I26.93 Pulmonary embolism type: single subsegmental (without acute cor pulmonale) Squamous cell lung cancer C34.91 Laterality: right COPD (chronic obstructive pulmonary disease) J44.9
--- NOTE | 2019-11-06 12:08 | PC.PHAR ---
Levaquin dosing changed from 750mg Q24h to 750mg q48h based on pt worsening renal function and crcl (39). Will continue to monitor and make changes when appropriate.
--- NOTE | 2019-11-06 13:25 | XR_ITS ---
WS: [id number] Portable AP upright chest, 11/06/2019 Clinical Data: pneumonia Comparison: Portable chest, 11/05/2019 Findings: The bilateral consolidation involving the right lower lobe, right middle lobe and the major ity of the left lung remains unchanged. The left PICC line has not changed. The right upper lung show s a medial mass unchanged. The aortic arch and descending aorta are tortuous. The heart is normal. No pneumothorax is seen. Monitor leads on the chest wall. XR/XR chest 1V portable [id number] Impression: 1. No change in consolidation of right middle lobe, right lower lobe and left l rashad probably indicate pneumonia. 2. No change in right upper lobe mass in medial aspect. 3. No change in atherosclerosis.
[2019-11-06] MEDS: alteplase 1 mg/mL SDV 2 mL 2 MG INTRACATH (13:41)
--- NOTE | 2019-11-06 14:06 | P.PN_ITS ---
Subjective Subjective: Interval history: The patient was seen and examined. The patient said that he is feeling somewhat better than yesterday. The patient is currently on high flow nasal cannula with 45 L flow and 65% FiO2 with saturations in the low 90s. The patient complains of cough however is unable to produce any sputum. Overnight, the patient was brought down to ICU from the floor. Medications: Reviewed: Yes Vitals/I&O/Wt Last Vital Signs Temp 98.0 F 11/06/19 07:50 Pulse 99 11/06/19 11:45 Resp 20 H 11/06/19 11:44 BP 126/73 11/06/19 07:50 Pulse Ox 90 11/06/19 11:44 11/05/19 11/06/19 11/06/19 22:59 06:59 14:59 Intake Total 350 / 990 50 / 1040 50 / 50 Output Total 475 / 475 100 / 100 Balance 350 / 990 -425 / 565 -50 / -50 Weight last 48 hrs Weight 142 lb 3 oz Weight 142 lb 7 oz Physical Exam Narrative: EXAM NARRATIVE: General: Patient is awake alert and oriented, in no distress while resting. HEENT: Pupil bilateral symmetric Neck: No JVD, no cervical or supraclavicular lymphadenopathy. Respiratory: Auscultation: Bilateral fine crackles audible in the left anterior hemithorax and right mid and lower lung zone both anteriorly and posteriorly, no wheezing or rhonchi Cardiovascular: Regular rate and rhythm, S1-S2 present, no murmur, no right ventricular heave, no peripheral edema. Abdomen: Soft, nontender, nondistended, positive bowel sound Musculoskeletal: No obvious joint deformity Neuro: Mental status is normal, no gross cranial nerve deficit, normal motor and coordination. Data : 11/06/19 05:00 11/06/19 05:00 Micro: Microbiology 11/05/19 18:45 MRSA Culture - Final Nose 11/05/19 18:15 Bacterial Antigens - Final Urine,Clean Catch 11/05/19 18:15 Legionella Urinary Antigen - Final Urine,Clean Catch Other Xray: My impression: The chest x-ray obtained today revealed infiltrate in the left lung as well as right middle and lower lobe. I think there is some clearing of the infiltrate in the right lower lobe however the official radiology read did not see any significant difference. Other data: I have reviewed the blood work and the microbiologic data. The urinary antigens are negative. The MRSA PCR from the nose is also negative. A&P Assessment and plan (1) Acute respiratory failure: The patient's acute on chronic respiratory failure is secondary to multilobar pneumonia. The patient has negative MRSA PCR from the nose. He does not have significant sputum production which is inconsistent with a diagnosis of MRSA pneumonia. I will continue the patient on Zosyn and Levaquin. We will titrate the FiO2 down with a SPO2 goal of 88 and above. The procalcitonin level is 0.14. Given the patient's underlying emphysema and lung malignancy the patient will take a significant amount of time to recuperate or show any significant radiologic change on the chest x-ray. I will continue DuoNeb and Pulmicort nebulization for the time being. There is no evidence of an exacerbation of COPD. I will continue to follow the patient next week. Status: Acute Qualifiers: Respiratory failure complication: hypoxia Qualified Code(s): J96.01 - Acute respiratory failure with hypoxia Code(s): J96.00 - Acute respiratory failure, unspecified whether with hypoxia or hypercapnia (2) Squamous cell lung cancer: The patient has evidence of progression of squamous cell lung cancer on chemotherapy. His overall prognosis is poor Status: Acute Qualifiers: Laterality: right Qualified Code(s): C34.91 - Malignant neoplasm of unspecified part of right bronchus or lung Code(s): C34.90 - Malignant neoplasm of unspecified part of unspecified bronchus or lung (3) Pulmonary embolism: The small PE diagnosed on the last hospital admission had resolved on the CTA obtained on this hospital admission. We will continue with the Eliquis. Status: Acute Qualifiers: Pulmonary embolism type: single subsegmental (without acute cor pulmonale) Qualified Code(s): I26.93 - Single subsegmental pulmonary embolism without acute cor pulmonale Code(s): I26.99 - Other pulmonary embolism without acute cor pulmonale Attestations Medical Necessity Statement*: Will defer to the primary team Coding Level of Care Code Acute Cow Buyer for [facility] Diagnoses Acute respiratory failure J96.01 Respiratory failure complication: hypoxia Squamous cell lung cancer C34.91 Laterality: right Pulmonary embolism I26.93 Pulmonary embolism type: single subsegmental (without acute cor pulmonale) Time Spent (min) 35
--- NOTE | 2019-11-06 15:25 | DCPLANNER ---
*IMM* Important message from medicare gave to the patient and signed and placed in the chart. A copy was gave to the patient.
[2019-11-06 17:08] LABS: Glucose Point of Care 146 mg/dL (70-110)
--- NOTE | 2019-11-06 20:41 | PC.NURSE ---
received call from [facility] lab re : sputum culture result. of jirovecii. pneumosystic carinni. patiens is immunocompromised and is receiving radiation therapy. Dr. Portillo notified of result. patient is still requiring high gary o2 with spo2 result only 87-89%. very exacerbated with any movement. lungs are surprisingly clear very decreased bilateral. very fraille stature and skin is dry. using urinal gold color urine . no edema noted.
[2019-11-07] VITALS (127 sets, daily range): BP systolic 97–132; BP diastolic 62–83; PULSE 10–125; RESP 12–36; TEMP 36.8; O2SAT 76–95
[2019-11-07] MEDS: sodium chloride 0.9% (plus) 50 ML (01:13)
[2019-11-07] MEDS: ipratropium-albuterol 3 mL Neb INHALATION ×6 (03:25→23:15)
[2019-11-07 05:13] LABS: Basophils % 0.1 %; Eosinophils % 0.3 %; Hematocrit 40.8 % (42.0-52.0); Lymphocytes # 0.3 10^3/uL (0.8-4.8); Lymphocytes % 3.3 %; Mean Corpuscular HGB Conc 31.9 g/dL (30.0-36.0); Mean Corpuscular Hemoglobin 27.5 pg (28.0-34.0); Mean Corpuscular Volume 86.4 fL (80-94); Mean Platelet Volume 10.2 fL (7.4-10.4); Monocytes # 0.7 10^3/uL (0.2-0.9); Monocytes % 7.2 %; Neutrophils # 8.1 10^3/uL (1.8-7.7); Neutrophils % 88.2 %; Nucleated Red Blood Cells % 0 %; Platelet Count 466 10^3/cmm (130-400); Red Blood Count 4.72 10^6/uL (4.1-5.3); Red Cell Distribution Width 19.3 % (12.1-15.1); White Blood Count 9.2 10^3/uL (4.0-10.0)
[2019-11-07 05:39] LABS: Anion Gap 18.5 (5-19); Blood Urea Nitrogen 24 mg/dL (8-23); Calcium 10.7 mg/Dl (8.8-10.2); Carbon Dioxide 26 mmol/L (22-29); Chloride 95 mmol/L (98-107); Glucose 161 mg/dL (74-106); Potassium 4.5 mmol/L (3.5-5.1); Sodium 135 mmol/L (136-145)
[2019-11-07 07:23] LABS: Glucose Point of Care 148 mg/dL (70-110)
[2019-11-07] MEDS: pantoprazole DR 40 mg Tablet PO (08:12)
[2019-11-07] MEDS: apixaban 5 mg Tablet PO ×2 (08:13→17:24)
[2019-11-07] MEDS: piperacillin-tazobactam 3.375 GM in sodium chloride 0.9% (plus) 50 ML IV ×2 (08:14→17:24)
[2019-11-07] MEDS: budesonide 0.5 mg/2 mL Neb INHALATION ×2 (08:21→19:45)
--- NOTE | 2019-11-07 11:13 | PC.NURSE ---
At 1030 used bladder scanner to assess post void residual urine in bladder. scans were 536 and 486. call placed to Dr. Morris to report PVR. Order received for huber insertion. Attempted foly insertion of 16 fr. catheter without success. Unable to pass cathether into tthe penis without immediate resistance and penile opening. Called charge nurse to assist with a 12 fr. red elisabeth catheter and again unable to pass the catheter even a few cm without total resistance. Contacted physician again to state unable to complete huber insertion and recommend a urology consult for placement.
[2019-11-07 11:33] LABS: Glucose Point of Care 138 mg/dL (70-110)
--- NOTE | 2019-11-07 12:48 | PM.CONSULT ---
Providers/Reason For Consult Consulting Physican/Specialty*: Baugh/urology Reason for Consult*: Inability to pass Archer catheter Attending Physician: Fabricio Morris Primary Care Provider: Sheri Mcbride History of Present Illness History of Present Illness Reginald Vizcaino is a 79 year old male who I evaluated for the first time today at the request of Dr. Morris. Patient is admitted for pulmonary problems and was found to have a distended bladder on bladder ultrasound. Attempts at placing a catheter were unsuccessful. There was a distinct narrowing at the very distal aspect (fossa navicularis) of the urethra. Attempts with a 10 [place]an Archer catheter were unsuccessful by the nursing staff. Patient has had a TURP remotely by Dr. Valle in [facility]. He reports a urethral stricture that required at least 1 or 2 additional treatments intraoperatively and then a period of SCIC for stricture patency maintenance until he quit multiple years ago. He denies severe restrictive voiding but does state that his stream is nowhere as strong as it was post TURP and urethrotomy. Denies recurrent urinary tract infections or gross hematuria. No painful voiding. Since I was called he did void a couple times. Creatinine was 1.5 which was 1 of the concerns for potential exacerbation by inability to empty his bladder. CT scan of abdomen and pelvis did not show hydronephrosis on 10/24/2019. PROCEDURE Urethral dilation and difficult catheter placement Urethra was lubricated with 2% lidocaine jelly after prepping and draping in normal sterile fashion. A 10 [place] straight silicone catheter was utilized and manipulated through the fossa navicularis stricture which was quite tight. It was left indwelling for several minutes and then the urethra was sequentially dilated with 12 and 14 Singaporean straight catheters. Before each catheter passed 2% lidocaine jelly was instilled into the urethra again. A 14 [place]an coud? catheter was then passed after dilation and demonstrated good drainage of clear yellow urine. Catheter was placed to dependent drainage and secured with a StatLock. It was recommended that he maintain the catheter for at least several days to a week for passive dilation then we can start SCIC for stricture patency maintenance program which can be followed up on outpatient basis. We can initiate that here if he is still in the hospital over the next week. Review of Systems Const: Reports: malaise; Denies: fever or chills Eyes: Denies: change in vision or yellow eyes ENMT: Denies: swelling of lips/tongue or change in hearing Card: Denies: chest pain, palpitations or lightheadedness Resp: Reports: shortness of breath and productive cough; Denies: wheezing or coughing up blood GI: Denies: abdominal pain, nausea or vomiting : Reports: change in urine stream (See HPI); Denies: difficulty urinating, painful urination or blood in urine Musc: Reports: joint pain; Denies: joint warmth Skin/Breast: Denies: changes in skin color or dry skin Psych: Denies: anxiety or depression Endo: Denies: excessive urination Sid/Lymph: Reports: easy bruising (On chronic anticoagulant); Denies: enlarged lymph nodes All/Imm: Denies: hives Meds/Allergies Home Medications and Allergies Home Medications Medication Instructions Recorded Confirmed Type diclofenac sodium [Voltaren] 2 - 4 g TOPICAL PRN PRN 10/24/19 11/02/19 History furosemide [Lasix] 20 - 40 mg PO DAILY PRN 10/24/19 11/02/19 History ibuprofen 400 mg PO Q4H PRN 10/24/19 11/02/19 History metformin 500 mg PO BID 10/24/19 11/02/19 History multivitamin [Multiple Vitamins] 1 tab PO DAILY 10/24/19 11/02/19 History apixaban [Eliquis] 5 mg PO BID 11/02/19 11/02/19 History Allergies Allergy/AdvReac Type Severity Reaction Status Date / Time No Known Allergies Allergy Verified 10/24/19 16:09 Current Medications Current Medications Generic Name Dose Route Start Last Admin Trade Name Freq PRN Reason Stop Dose Admin Acetaminophen 650 mg 11/03/19 14:29 11/06/19 09:02 Tylenol PO 650 mg Q6H PRN Administration MILD PAIN Albuterol/Ipratropium 3 ml 11/02/19 22:40 11/07/19 11:40 Duoneb INHALATION 3 ml Q4H.RESPIRATORY KADIE Administration Alprazolam 0.125 mg 11/04/19 10:43 11/06/19 09:02 Xanax PO 0.125 mg QID PRN Administration ANXIETY Apixaban 5 mg 11/03/19 12:26 11/07/19 08:13 Eliquis PO 5 mg BID KADIE Administration Budesonide 0.5 mg 11/05/19 08:00 11/07/19 08:21 Pulmicort INHALATION 0.5 mg BID.RESPIRATORY KADIE Administration Furosemide 20 mg 11/03/19 13:00 11/04/19 08:24 Lasix PO 20 mg DAILY KADIE Administration Piperacillin Sod/Tazobactam 50 mls @ 12.5 mls/hr 11/07/19 08:00 11/07/19 08:14 Sod 3.375 gm/ Sodium Chloride IV 12.5 mls/hr Q8H KADIE Administration Protocol Pantoprazole Sodium 40 mg 11/03/19 12:26 11/07/19 08:12 Protonix PO 40 mg DAILY KADIE Administration Sodium Chloride 1 spray 11/03/19 13:00 11/03/19 13:00 [place] Nasal [place] NASAL 1 spray Q2H PRN Administration DRYNESS PFSH Acute PFSH: Statuses (acute, chronic, etc) shown below reflect problem list status as previously entered and may not be historically accurate Medical History BPH (benign prostatic hyperplasia) (Acute) COPD (chronic obstructive pulmonary disease) (Acute) Diabetes (Acute) Dyslipidemia (Acute) GERD (gastroesophageal reflux disease) (Acute) Normal colonoscopy (Acute) Right inguinal hernia (Acute) Squamous cell lung cancer (Acute) Surgical History H/O inguinal hernia repair (Acute) History of appendectomy (Acute) Hx of tonsillectomy (Acute) S/P TURP (Acute) Family History Mother Diabetes Brother Cancer Parkinsons disease Brother Cancer HODKINS LYMPHOMA Sister Parkinsons disease Social History Smoking and tobacco status: former smoker Alcohol intake: former Marital status: Vitals/I&O/Wt Last Vital Signs Temp 98.2 F 11/07/19 04:00 Pulse 117 H 11/07/19 11:52 Resp 28 H 11/07/19 11:52 BP 101/63 11/07/19 08:00 Pulse Ox 90 11/07/19 11:52 11/06/19 11/07/19 11/07/19 22:59 06:59 14:59 Intake Total 530 / 580 830 / 1410 340 / 340 Output Total 680 / 780 1550 / 2330 Balance -150 / -200 -720 / -920 340 / 340 Weight last 48 hrs Weight 142 lb 3 oz Physical Exam Const: COMMON NORMALS: no apparent distress, average body habitus and oriented x3 GENERAL APPEARANCE: cooperative and comfortable; not in distress HENMT: COMMON NORMALS: normocephalic and head/scalp atraumatic HEAD & SCALP: normocephalic and atraumatic Eye: COMMON NORMALS: conjunctivae normal and no scleral icterus CONJUNCTIVA: Yes conjunctivae normal Neck/C-Spine: COMMON NORMALS: full ROM Resp: COMMON NORMALS: normal respiratory effort EFFORT & INSPECTION: Yes able to speak in complete sentences and No actively coughing OTHER: Nasal oxygen : COMMON NORMALS: Yes no CVA tenderness, Yes external exam normal, Yes testes normal (Mild atrophy), Yes scrotum normal and Yes no hernias present BLADDER/KIDNEY EXAM: No catheter in place and Yes no CVA tenderness PENIS: normal penis and circumcised MEATUS: meatus normal Back/Pelvis: COMMON NORMALS: no CVA tenderness Extremity: COMMON NORMALS: normal to inspection and normal capillary refill Neuro: COMMON NORMALS: oriented x3 Psych: COMMON NORMALS: mental status grossly normal and thought process normal ATTITUDE: Yes engaged and Yes uncooperative THOUGHT PROCESS: normal thought process Skin: COMMON NORMALS: no rashes or lesions noted and no wounds GENERAL SKIN EXAM: no rashes or lesions noted Urinary Catheter Management^: Coude: Cath Placed During This Visit: no Urethral Indwelling: Yes Reason for Continuing Indwelling Catheter: Other (Urethral stricture disease with incomplete bladder emptying) Data Micro: Micro: Microbiology 11/06/19 12:15 MRSA Culture - Fin al Nose 11/05/19 18:45 MRSA Culture - Fin al Nose A&P Assessment and plan (1) Postprocedural fossa navicularis urethral stricture: Status post remote TURP with development of fossa navicularis stricture requiring previous interventions under anesthesia as well as SCIC stricture patency maintenance program. Despite slow stream he felt that his symptoms were not severe. Inability to pass catheter required urologic assessment intervention today. Status: Chronic Code(s): N99.115 - Postprocedural fossa navicularis urethral stricture (2) Incomplete bladder emptying: Concern for elevated PVR and patient with mildly elevated creatinine. Inability nursing staff to pass catheter. 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
--- NOTE | 2019-11-07 13:10 | NUR.SHIFT ---
Archer placed by Dr. Baugh
--- NOTE | 2019-11-07 15:03 | PM.PN ---
Subjective Subjective: Interval history: He is feeling about the same. Still having difficulties with getting his oxygen level better. He denies any trouble with urination. Does not have any abdominal pain. Reports that he has had issues with urinating in the past. With some worsening creatinine today, we have obtained PVR which was over 500 mL. Medications: Reviewed: Yes Vitals/I&O/Wt Last Vital Signs Temp 98.2 F 11/07/19 04:00 Pulse 121 H 11/07/19 12:00 Resp 32 H 11/07/19 12:00 BP 114/79 11/07/19 12:00 Pulse Ox 86 L 11/07/19 12:00 11/07/19 11/07/19 11/07/19 06:59 14:59 22:59 Intake Total 830 / 1410 340 / 340 Output Total 1550 / 2330 210 / 210 Balance -720 / -920 130 / 130 Weight last 48 hrs Weight 64.495 kg Physical Exam Const: COMMON NORMALS: no apparent distress and oriented x3 GENERAL APPEARANCE: frail appearing OTHER: High flow cannula on. Gets short of breath with activity. HENMT: COMMON NORMALS: oropharynx normal Neck/C-Spine: COMMON NORMALS: no JVD Resp: COMMON NORMALS: normal respiratory effort and clear to auscultation bilaterally AUSCULTATION: clear to auscultation bilaterally Cardio: COMMON NORMALS: no JVD, regular rhythm, S1 normal heart sound, S2 normal heart sound and no murmurs RHYTHM: regular rhythm HEART SOUNDS: S1 normal and S2 normal GI: COMMON NORMALS: normal to inspection, nondistended, normoactive bowel sounds, soft to palpation and non-tender PALPATION: Yes soft Extremity: COMMON NORMALS: no joint enlargement and no pedal edema Neuro: COMMON NORMALS: oriented x3 and moves all extremities Skin: COMMON NORMALS: no rashes or lesions noted GENERAL SKIN EXAM: no rashes or lesions noted Urinary Catheter Management^: Coude: Cath Placed During This Visit: no Data : 11/07/19 04:50 11/07/19 04:50 Micro: Microbiology 11/06/19 12:15 MRSA Culture - Final Nose 11/05/19 18:45 MRSA Culture - Final Nose A&P Assessment and plan (1) Acute respiratory failure: Persistently requiring 45 L flow on he did high flow cannula. Continue treatment for pneumonia with broad-spectrum antibiotics. Continues on Pulmicort, duo nebs. Diuretics on hold this does not appear fluid overloaded. Status: Acute Qualifiers: Respiratory failure complication: hypoxia Qualified Code(s): J96.01 - Acute respiratory failure with hypoxia Code(s): J96.00 - Acute respiratory failure, unspecified whether with hypoxia or hypercapnia (2) CLEMENTE (acute kidney injury): Creatinine up to 1.5. Medications reviewed. Should not be on anything should be injuring his kidney. With history of urinary retention, PVR was obtained and found over 500. Archer catheter attempted to be passed, however, unsuccessfully due to which assistance was sought from urology service. Status: Acute Code(s): N17.9 - Acute kidney failure, unspecified (3) Pneumonitis: At this time suspected infectious pneumonia. Status: Acute Code(s): J18.9 - Pneumonia, unspecified organism (4) Pulmonary embolism: No PE seen on repeat CTA. Continue anticoagulation with Eliquis. Status: Acute Qualifiers: Pulmonary embolism type: single subsegmental (without acute cor pulmonale) Qualified Code(s): I26.93 - Single subsegmental pulmonary embolism without acute cor pulmonale Code(s): I26.99 - Other pulmonary embolism without acute cor pulmonale (5) Squamous cell lung cancer: Continue follow-up with Dr. Thornton, Dr. Mccrary. Status: Acute Qualifiers: Laterality: right Qualified Code(s): C34.91 - Malignant neoplasm of unspecified part of right bronchus or lung Code(s): C34.90 - Malignant neoplasm of unspecified part of unspecified bronchus or lung (6) COPD (chronic obstructive pulmonary disease): Currently no exacerbation. Status: Acute Code(s): J44.9 - Chronic obstructive pulmonary disease, unspecified Attestations Medical Necessity Statement*: Continue admission for assessment management of acute respiratory failure, acute kidney injury with urinary outflow obstruction. Coding Level of Care Code Acute Head Start Coordinator for [facility] Diagnoses Acute respiratory failure J96.01 Respiratory failure complication: hypoxia CLEMENTE (acute kidney injury) N17.9 Pneumonitis J18.9 Pulmonary embolism I26.93 Pulmonary embolism type: single subsegmental (without acute cor pulmonale) Squamous cell lung cancer C34.91 Laterality: right COPD (chronic obstructive pulmonary disease) J44.9
[2019-11-07 17:11] LABS: Glucose Point of Care 163 mg/dL (70-110)
[2019-11-07] MEDS: levofloxacin-dextrose 5 % 750 MG/150 ML PREMIX 150 MG IV (17:31)
[2019-11-07] MEDS: acetaminophen 325 mg Tablet 650 MG PO (19:22)
[2019-11-07] MEDS: ALPRAZolam 0.25 mg Tablet 0.125 MG PO (19:23)
[2019-11-08] VITALS (267 sets, daily range): BP systolic 85–129; BP diastolic 61–79; PULSE 89–128; RESP 13–36; TEMP 36.7–37.3; O2SAT 75–95; BMI 21.3
[2019-11-08] MEDS: piperacillin-tazobactam 3.375 GM in sodium chloride 0.9% (plus) 50 ML IV ×3 (00:35→15:38)
[2019-11-08] MEDS: ipratropium-albuterol 3 mL Neb INHALATION ×6 (03:33→23:44)
[2019-11-08 05:04] LABS: Basophils % 0.1 %; Eosinophils # 0.1 10^3/uL (0.0-0.8); Eosinophils % 1.9 %; Hematocrit 41.6 % (42.0-52.0); Lymphocytes # 0.3 10^3/uL (0.8-4.8); Lymphocytes % 3.6 %; Mean Corpuscular HGB Conc 31.3 g/dL (30.0-36.0); Mean Corpuscular Hemoglobin 27.5 pg (28.0-34.0); Mean Corpuscular Volume 87.9 fL (80-94); Mean Platelet Volume 10.5 fL (7.4-10.4); Monocytes # 0.5 10^3/uL (0.2-0.9); Monocytes % 6.7 %; Neutrophils # 6.5 10^3/uL (1.8-7.7); Neutrophils % 86.4 %; Nucleated Red Blood Cells % 0 %; Platelet Count 447 10^3/cmm (130-400); Red Blood Count 4.73 10^6/uL (4.1-5.3); Red Cell Distribution Width 18.9 % (12.1-15.1); White Blood Count 7.6 10^3/uL (4.0-10.0)
[2019-11-08 05:31] LABS: Anion Gap 16.3 (5-19); Blood Urea Nitrogen 21 mg/dL (8-23); Calcium 10.5 mg/Dl (8.8-10.2); Carbon Dioxide 26 mmol/L (22-29); Chloride 97 mmol/L (98-107); Glucose 157 mg/dL (74-106); Potassium 4.3 mmol/L (3.5-5.1); Sodium 135 mmol/L (136-145)
--- NOTE | 2019-11-08 06:19 | PC.NURSE ---
patient still requiring high gary o2 at 80 % with any exertion patient desats to 70%. no reserve at all. patient has had good urine output and has had no other complaints except with any movement he gets short of breath. Dr. Portillo has checked on him several times through out the night. no changes.
[2019-11-08 07:28] LABS: Glucose Point of Care 149 mg/dL (70-110)
[2019-11-08] MEDS: budesonide 0.5 mg/2 mL Neb INHALATION ×2 (07:34→19:27)
[2019-11-08] MEDS: apixaban 5 mg Tablet PO ×2 (08:01→17:36)
[2019-11-08] MEDS: pantoprazole DR 40 mg Tablet PO (08:01)
--- NOTE | 2019-11-08 09:28 | XRR_ITS ---
PROCEDURE INFORMATION: Exam: XR Chest, 1 View Exam date and time: 11/08/2019 12:44 PM Age: 79 years old Clinical indication: Shortness of breath; Additional info: Hypoxia TECHNIQUE: Imaging protocol: XR of the chest Views: 1 view. COMPARISON: CR XR chest 1V portable [id number] 11/06/2019 1:48 PM, CT of the chest 10/24/2019 FINDINGS: Tubes, catheters and devices: Left-sided central venous catheter is in unchanged position. Lungs: Patchy bilateral airspace opacities on a background of emphysema are unchanged right greater than left. Right upper lung mediastinal mass is unchanged. Pleural space: Small right pleural effusion is better reflected on CT. No discernible pneumothorax. Heart/Mediastinum: No cardiomegaly. Vasculature: There is unchanged tortuosity of the descending thoracic aorta. Bones/joints: Unremarkable. For technique XR/XR chest 1V portable [id number] IMPRESSION: 1. Stable appearance of patchy bilateral airspace opacities right greater than left. Remainder findings are not significantly changed.
[2019-11-08 11:23] LABS: Glucose Point of Care 217 mg/dL (70-110)
--- NOTE | 2019-11-08 12:17 | PC.CHAP ---
Pastoral Care Encounter/Spiritual Assessment Type of Contact [] Declined adhesive bandage making operator visit [] Patient/Family/Request visit [] Outpatient visit [] Follow-up visit [] Physician referral [] Code/Alert [] Routine visit [] Staff referral [] Actively dying [] Patient sleeping [] Family support [] [] Out of room [] Palliative care [] [] Receiving care in room [] Pre-surgical visit [] Trauma [] Long length of stay [] ICU visit [] Other: Relational/Emotional Strength [] Patient feels connected with others/family/visitors/staff [] Distress [] Loneliness/isolation [] Abandonment Spirituality of Patient [] Person of [place] [] Attends Gnosticism of their [place] [] Believes in Prayer [] Reads Bible or Scientologist materials [] There are Spiritual issues to be addressed Soap Drier Operator Interventions [] Prayer [] Active listening [] Non-anxious presence [] Spiritual/emotional support [] Crisis/trauma care [] Spiritual counseling [] Bereavement support [] Provided bereavement packet [] Provided Bible/devotional materials [] Provided toy/stuffed animal, coloring book to patient or family member [] Completed spiritual assessment [] Provided Communion [] Anointing/[place] [] Salvation [] Other: Impact on Illness or Injury [] Angry [] Fearful [] Anxious [] Often cries [] Exhaustion [] Unable to work [] Unable to attend yazidi [] Unable to walk/stand [] Unable to read [] Unable to drive [] Unable to eat/drink [] Unable to sleep [] Unable to be with family [] Other: Summary patient visited by on-call Soap Drier Operator Time spent with patient
--- NOTE | 2019-11-08 16:05 | PC.SOCIAL ---
Updated IMM Updated pt on Pg 2 IMM. No questions voiced. Provided pt a copy. Signed, dated, & timed original in chart.
[2019-11-08 16:56] LABS: Glucose Point of Care 131 mg/dL (70-110)
[2019-11-08] MEDS: guaiFENesin 600 mg Tablet PO (17:36)
--- NOTE | 2019-11-08 17:53 | P.PN_ITS ---
Subjective Subjective: Interval history: Comfortable at rest. When moving into chair became dyspneic, tachycardic. Reports intermittent occasional sputum which is thick, difficult to get up. Medications: Reviewed: Yes Vitals/I&O/Wt Last Vital Signs Temp 98.9 F 11/08/19 04:40 Pulse 108 H 11/08/19 16:00 Resp 20 H 11/08/19 15:31 BP 107/66 11/08/19 16:00 Pulse Ox 89 L 11/08/19 16:00 11/08/19 11/08/19 11/08/19 06:59 14:59 22:59 Intake Total 170 / 1320 700 / 700 450 / 1150 Output Total 200 / 1710 1000 / 1000 Balance -30 / -390 700 / 700 -550 / 150 Weight last 48 hrs Weight 63.673 kg Physical Exam Const: COMMON NORMALS: no apparent distress and oriented x3 GENERAL APPEARANCE: frail appearing OTHER: High flow cannula on. Gets short of breath with activity. is at bedside. HENMT: COMMON NORMALS: oropharynx normal Neck/C-Spine: COMMON NORMALS: no JVD Resp: COMMON NORMALS: normal respiratory effort and clear to auscultation bilaterally AUSCULTATION: clear to auscultation bilaterally Cardio: COMMON NORMALS: no JVD, regular rhythm, S1 normal heart sound, S2 normal heart sound and no murmurs RHYTHM: regular rhythm HEART SOUNDS: S1 normal and S2 normal GI: COMMON NORMALS: normal to inspection, nondistended, normoactive bowel sounds, soft to palpation and non-tender PALPATION: Yes soft Extremity: COMMON NORMALS: no joint enlargement and no pedal edema Neuro: COMMON NORMALS: oriented x3 and moves all extremities Skin: COMMON NORMALS: no rashes or lesions noted GENERAL SKIN EXAM: no rashes or lesions noted Urinary Catheter Management^: Coude: Cath Placed During This Visit: no Data : 11/08/19 04:41 11/08/19 04:41 A&P Assessment and plan (1) Acute respiratory failure: Becomes easily dyspneic, desaturating, tachycardia with activity. Persistently requiring 45 L flow on he did high flow cannula. Continue treatment for pneumonia with broad-spectrum antibiotics. We will add some Mucinex as he is asking for something to help him expectorate occasional thick sputum. Continues on Pulmicort, duo nebs. Diuretics on hold this does not appear fluid overloaded. Discussed with him and his possibility of transfer to LTAC given it is expected he may have protracted weaning of oxygen support with chronic lung disease, to which they are agreeable. Status: Acute Qualifiers: Respiratory failure complication: hypoxia Qualified Code(s): J96.01 - Acute respiratory failure with hypoxia Code(s): J96.00 - Acute respiratory failure, unspecified whether with hypoxia or hypercapnia (2) CLEMENTE (acute kidney injury): Creatinine better today. Archer catheter placed by urology after urinary retention. Monitor renal function. Status: Acute Code(s): N17.9 - Acute kidney failure, unspecified (3) Pneumonitis: At this time suspected infectious pneumonia. Status: Acute Code(s): J18.9 - Pneumonia, unspecified organism (4) Pulmonary embolism: No PE seen on repeat CTA. Continue anticoagulation with Eliquis. Status: Acute Qualifiers: Pulmonary embolism type: single subsegmental (without acute cor pul monale) Qualified Code(s): I26.93 - Single subsegmental pulmonary embolism without acute cor pulmonale Code(s): I26.99 - Other pulmonary embolism without acute cor pulmonale (5) Squamous cell lung cancer: Continue follow-up with Dr. Thornton, Dr. Mccrary. Status: Acute Qualifiers: Laterality: right Qualified Code(s): C34.91 - Malignant neoplasm of unspecified part of right bronchus or lung Code(s): C34.90 - Malignant neoplasm of unspecified part of unspecified bronchus or lung (6) COPD (chronic obstructive pulmonary disease): Currently no exacerbation. Status: Acute Code(s): J44.9 - Chronic obstructive pulmonary disease, unspecified Attestations Medical Necessity Statement*: Continue admission for assessment and management of respiratory failure with hypoxia. Coding Level of Care Code Acute Supervisor Fruit Grading for [facility] Diagnoses Acute respiratory failure J96.01 Respiratory failure complication: hypoxia CLEMENTE (acute kidney injury) N17.9 Pneumonitis J18.9 Pulmonary embolism I26.93 Pulmonary embolism type: single subsegmental (without acute cor pulmonale) Squamous cell lung cancer C34.91 Laterality: right COPD (chronic obstructive pulmonary disease) J44.9
[2019-11-09] VITALS (74 sets, daily range): BP systolic 94–137; BP diastolic 60–98; PULSE 89–122; RESP 22–39; TEMP 37; O2SAT 82–98
[2019-11-09] MEDS: ipratropium-albuterol 3 mL Neb INHALATION ×4 (03:22→15:06)
[2019-11-09] MEDS: acetaminophen 325 mg Tablet 650 MG PO (04:08)
[2019-11-09 04:20] LABS: Basophils % 0.2 %; Eosinophils # 0.3 10^3/uL (0.0-0.8); Eosinophils % 4.1 %; Hematocrit 41.7 % (42.0-52.0); Hemoglobin 13.1 g/dL (11.7-16.6); Lymphocytes # 0.4 10^3/uL (0.8-4.8); Mean Corpuscular HGB Conc 31.4 g/dL (30.0-36.0); Mean Corpuscular Hemoglobin 27.5 pg (28.0-34.0); Mean Corpuscular Volume 87.6 fL (80-94); Mean Platelet Volume 10.7 fL (7.4-10.4); Monocytes # 0.5 10^3/uL (0.2-0.9); Monocytes % 6.3 %; Neutrophils # 6.8 10^3/uL (1.8-7.7); Neutrophils % 82.8 %; Nucleated Red Blood Cells % 0 %; Platelet Count 451 10^3/cmm (130-400); Red Blood Count 4.76 10^6/uL (4.1-5.3); Red Cell Distribution Width 18.8 % (12.1-15.1); White Blood Count 8.3 10^3/uL (4.0-10.0)
[2019-11-09 04:41] LABS: Anion Gap 16.3 (5-19); Blood Urea Nitrogen 21 mg/dL (8-23); Calcium 10.5 mg/Dl (8.8-10.2); Carbon Dioxide 26 mmol/L (22-29); Chloride 99 mmol/L (98-107); Glucose 159 mg/dL (74-106); Potassium 4.3 mmol/L (3.5-5.1); Sodium 137 mmol/L (136-145)
[2019-11-09] MEDS: budesonide 0.5 mg/2 mL Neb INHALATION (07:28)
[2019-11-09] MEDS: pantoprazole DR 40 mg Tablet PO (08:53)
[2019-11-09] MEDS: piperacillin-tazobactam 3.375 GM in sodium chloride 0.9% (plus) 50 ML IV ×2 (08:53)
[2019-11-09] MEDS: guaiFENesin 600 mg Tablet PO (08:54)
[2019-11-09] MEDS: apixaban 5 mg Tablet PO (08:54)
[2019-11-09 11:53] LABS: Glucose Point of Care 158 mg/dL (70-110)
--- NOTE | 2019-11-09 12:21 | PM.TDS ---
Transfer Summary Providers Date of Admission: 11/03/19 14:46 Date of Discharge: 11/09/19 Attending Provider at Admission: Fabricio Morris Attending Provider at Transfer: Fabricio Morris Primary Care Provider: Sheri Mcbride Anticipated Date of Transfer: Anticipated date of transfer: 11/09/19 Receiving Facility & Provider: Receiving Provider: [] Receiving facility: [] Diagnoses at Discharge Discharge Diagnosis (1) Acute respiratory failure: Status: Acute Qualifiers: Respiratory failure complication: hypoxia Qualified Code(s): J96.01 - Acute respiratory failure with hypoxia (2) CLEMENTE (acute kidney injury): Status: Acute (3) Pneumonitis: Status: Acute Problem details: -Recently completed radiation therapy so this is potential cause (4) Pulmonary embolism: Status: Acute Qualifiers: Pulmonary embolism type: single subsegmental (without acute cor pulmonale) Qualified Code(s): I26.93 - Single subsegmental pulmonary embolism without acute cor pulmonale (5) Squamous cell lung cancer: Status: Acute Qualifiers: Laterality: right Qualified Code(s): C34.91 - Malignant neoplasm of unspecified part of right bronchus or lung (6) COPD (chronic obstructive pulmonary disease): Status: Acute Reason for Visit Reason for Visit: Reason For Visit: SOB Hospital Course Hospital Course: 79-year-old gentleman with 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 Noted with persistent hypoxia in the hospital, requiring up to 45 L/min high flow heated cannula support. With likely multiple factors contribute to her hypoxia including pulmonary malignancy, he was recently diagnosed with PE, treated with anticoagulation, and CTA was repeated, although without noted new PEs, with recently noted pneumonitis of questionable etiology as well, thought to be perhaps radiation related after radiation therapy, as well as with COPD. Given recent immunosuppression, underlying bone density. With profound hypoxia there was concern for PCP. Initially was empirically started on Bactrim along with steroids. No pneumonia was seen on initial imaging, subsequently with patchy infiltrates bilaterally suspicious for pneumonia for which antibiotic coverage was broadened with Levaquin, Zosyn and linezolid. Bactrim and steroids were discontinued due to low suspicion for PCP, and lack of COPD exacerbation on pulmonary assessment. There is still concern for possible lymphangitic spread of underlying malignancy. MRSA culture was negative and linezolid was discontinued as well. Archer catheter had to be placed due to urinary outflow obstruction, with urethral stricture, incomplete bladder emptying leading to urine retention, acute kidney injury. Due to degree of stricture urinary catheter had to be placed by urology. He has had protracted hypoxia with very slow improvement. Still desaturating easily, however, symptoms appear to have stabilized. He was able to wean down to 35 L/min heated high flow cannula today. Due to slow pace of improvement, with multiple underlying medical conditions including malignancy, continued requirement for high flow oxygen he was kindly accepted for further care at a long-term acute care facility. After discharge he should continue follow-up with pulmonology, his oncologist and radiation oncologist and urology. Physical Exam Const: COMMON NORMALS: no apparent distress and oriented x3 GENERAL APPEARANCE: frail appearing OTHER: High flow cannula on. Not in discomfort. HENMT: COMMON NORMALS: oropharynx normal Neck/C-Spine: COMMON NORMALS: no JVD Resp: COMMON NORMALS: normal respiratory effort and clear to auscultation bilaterally AUSCULTATION: clear to auscultation bilaterally Cardio: COMMON NORMALS: no JVD, regular rhythm, S1 normal heart sound, S2 normal heart sound and no murmurs RHYTHM: regular rhythm HEART SOUNDS: S1 normal and S2 normal GI: COMMON NORMALS: normal to inspection, nondistended, normoactive bowel sounds, soft to palpation and non-tender PALPATION: Yes soft Extremity: COMMON NORMALS: no joint enlargement and no pedal edema Neuro: COMMON NORMALS: oriented x3 and moves all extremities Skin: COMMON NORMALS: no rashes or lesions noted GENERAL SKIN EXAM: no rashes or lesions noted Urinary Catheter Management^: Coude: Cath Placed During This Visit: no TS Data Data Completed and Pending: Completed Studies During Hospitalization Category Date Time Status CT angio chest PE protcl [id number] Urge nt Cat Scan 11/02/19 11:27 Completed XR chest 1V jimmie ble [id number] Routine Exams 11/05/19 06:00 Completed XR chest 1V jimmie ble [id number] Routine Exams 11/08/19 09:28 Completed XR chest 1V jimmie ble [id number] Urgent Exams 11/06/19 13:25 Completed Pending at discharge Category Date Time Status Miscellaneous Fiona t Routine Lab 11/03/19 14:30 Received Labs from last 24 hours 11/09/19 11/09/19 11/09/19 11:35 03:45 03:45 WBC 8.3 RBC 4.76 Hgb 13.1 Hct 41.7 L MCV 87.6 MCH 27.5 L MCHC 31.4 RDW 18.8 H Plt Count 451 H MPV 10.7 H Neut % (Auto) 82.8 Lymph % (Auto) 5.0 [place] % (Auto) 6.3 Eos % (Auto) 4.1 Baso % (Auto) 0.2 Neut # (Auto) 6.8 Lymph # (Auto) 0.4 L [place] # (Auto) 0.5 Eos # (Auto) 0.3 Baso # (Auto) 0.0 Nucleated RBC % (a uto) 0 Nucleated RBCs # 0.0 Sodium 137 Potassium 4.3 Chloride 99 Carbon Dioxide 26 Anion Gap 16.3 BUN 21 Creatinine 1.2 Glucose 159 H POC Glucose 158 Calcium 10.5 H 11/08/19 16:50 WBC RBC Hgb Hct MCV MCH MCHC RDW Plt Count MPV Neut % (Auto) Lymph % (Auto) [place] % (Auto) Eos % (Auto) Baso % (Auto) Neut # (Auto) Lymph # (Auto) [place] # (Auto) Eos # (Auto) Baso # (Auto) Nucleated RBC % (a uto) Nucleated RBCs # Sodium Potassium Chloride Carbon Dioxide Anion Gap BUN Creatinine Glucose POC Glucose 131 Calcium Vitals: Last Vital Signs Temp 98.1 F 11/08/19 22:50 Pulse 107 H 11/09/19 11:20 Resp 22 H 11/09/19 11:04 BP 131/98 11/09/19 09:00 Pulse Ox 90 11/09/19 11:04 TS Medications Medications Home Medications diclofenac sodium [Voltaren] 2 - 4 g TOPICAL PRN PRN 10/24/19 [History Confirmed 11/02/19] furosemide [Lasix] 20 - 40 mg PO DAILY PRN 10/24/19 [History Confirmed 11/02/19] ibuprofen 400 mg PO Q4H PRN 10/24/19 [History Confirmed 11/02/19] metformin 500 mg PO BID 10/24/19 [History Confirmed 11/02/19] multivitamin [Multiple Vitamins] 1 tab PO DAILY 10/24/19 [History Confirmed 11/02/19] apixaban [Eliquis] 5 mg PO BID 11/02/19 [History Confirmed 11/02/19] Active Medications Acetaminophen (Tylenol) 650 mg PO Q6H PRN PRN Reason: MILD PAIN Last Admin: 11/09/19 04:08 Dose: 650 mg Documented by: Albuterol/Ipratropium (Duoneb) 3 ml INHALATION Q4H.RESPIRATORY PRN PRN Reason: SHORTNESS OF BREATH Albuterol/Ipratropium (Duoneb) 3 ml INHALATION Q4H.RESPIRATORY KADIE Last Admin: 11/09/19 11:04 Dose: 3 ml Documented by: Apixaban (Eliquis) 5 mg PO BID KADIE Last Admin: 11/09/19 08:54 Dose: 5 mg Documented by: Budesonide (Pulmicort) 0.5 mg INHALATION BID.RESPIRATORY KADIE Last Admin: 11/09/19 07:28 Dose: 0.5 mg Documented by: Furosemide (Lasix) 20 mg PO DAILY KADIE Last Admin: 11/04/19 08:24 Dose: 20 mg Documented by: Guaifenesin (Mucinex) 600 mg PO BID KADIE Last Admin: 11/09/19 08:54 Dose: 600 mg Documented by: Levofloxacin/Dextrose (Levaquin-D5w) 750 mg in 150 mls @ 150 mls/hr IV Q48H KADIE; Protocol Last Infusion: 11/07/19 19:25 Dose: Infused Documented by: Piperacillin Sod/Tazobactam (Sod 3.375 gm/ Sodium Chloride) 50 mls @ 12.5 mls/hr IV Q8H KADIE; Protocol Last Admin: 11/09/19 08:53 Dose: 12.5 mls/hr Documented by: Pantoprazole Sodium (Protonix) 40 mg PO DAILY KADIE Last Admin: 11/09/19 08:53 Dose: 40 mg Documented by: Sodium Chloride ([place] Nasal [place]) 1 spray NASAL Q2H PRN PRN Reason: DRYNESS Last Admin: 11/03/19 13:00 Dose: 1 spray Documented by: Discharge Plan Discharge Patient Disposition: Home, Self-Care Condition: Stable Prescriptions: No Action metformin 500 mg Tablet 500 mg PO BID RF: 0 furosemide [Lasix] 20 mg Tablet 20 - 40 mg PO DAILY PRN (Reason: EDEMA) RF: 0 diclofenac sodium [Voltaren] 1 % Gel 2 - 4 g TOPICAL PRN PRN (Reason: Pain) RF: 0 multivitamin [Multiple Vitamins] Tablet 1 tab PO DAILY RF: 0 ibuprofen 200 mg Tablet 400 mg PO Q4H PRN (Reason: Pain) RF: 0 Eliquis 5 mg tablet 5 mg PO BID RF: 0 Referrals: Sheri Mcbride APN [Primary Care Provider] - Max Baugh MD [Physician] - Iván Thornton MD [Hospitalist] - Janki Chester MD [Physician] - Compa Mccrary [Staff Physician] - Transfer Attestations Time Spent in Transfer Care*: greater than 30 min Quality Metrics Clinical Quality Measures: During this hospital stay, did patient experience: None Coding Level of Care Code Acute [employer] Administrator for [facility] Diagnoses Acute respiratory failure J96.01 Respiratory failure complication: hypoxia CLEMENTE (acute kidney injury) N17.9 Pneumonitis J18.9 Pulmonary embolism I26.93 Pulmonary embolism type: single subsegmental (without acute cor pulmonale) Squamous cell lung cancer C34.91 Laterality: right COPD (chronic obstructive pulmonary disease) J44.9
--- NOTE | 2019-11-09 16:57 | PC.NURSE ---
[facility].
--- NOTE | 2019-11-16 12:38 | PC.SOCIAL ---
Per Director Rachael Marks, called [facility] to get fax number to fax critical lab results to facility. Spoke with [facility] to confirm patient was still there, and obtained a fax number of [phone]. Per Inge, faxing information directly to the medical records dept. at [facility]. Successful fax confirmation was received.
== END 2019-11-09 17:09 | DRG 189 ==
LOC: ER 18:28 → MEDSURG 18:37 → ICU 11-06 11:03
PROVIDERS: Internal Medicine Critical Care Medicine; Admitting Provider Internal Medicine; Emergency Provider Family Medicine; Family Provider Nurse Practitioner Family; PCP Nurse Practitioner Family; Visit Provider Internal Medicine
DX: J96.01 Acute respiratory failure with hypoxia (principal); J18.9 Pneumonia, unspecified organism; C79.89 Secondary malignant neoplasm of other specified sites; J70.0 Acute pulmonary manifestations due to radiation; N13.8 Other obstructive and reflux uropathy; J43.9 Emphysema, unspecified; N40.0 Benign prostatic hyperplasia without lower urinary tract symptoms; E11.9 Type 2 diabetes mellitus without complications; E78.5 Hyperlipidemia, unspecified; K21.9 Gastro-esophageal reflux disease without esophagitis; N99.115 Postprocedural fossa navicularis urethral stricture; Y83.8 Other surgical procedures as the cause of abnormal reaction of the patient, or of later complication, without mention of misadventure at the time of the procedure; Z99.81 Dependence on supplemental oxygen; Z85.118 Personal history of other malignant neoplasm of bronchus and lung; Z86.711 Personal history of pulmonary embolism; Z87.891 Personal history of nicotine dependence; Z79.01 Long term (current) use of anticoagulants; Z79.84 Long term (current) use of oral hypoglycemic drugs
CPT/HCPCS: 12345; 36415; 36416; 36592; 36600; 51702; 71045; 71275; 80048; 80051; 80053; 82810; 82962; 83615; 83880; 83986; 84145; 84484; 85025; 86403; 87449; 87641; 87798; 87804; 93005; 94640; 94664; 94762; 96375; 99283; A9270; G0378; J1956; J2020; J2543; J2930; J2997; J7512; J7626; Q9967